=== PATIENT | female | born 1965 | race Caucasian/White ===

== ENCOUNTER → 2020-02-08 10:36 | Outpatient (BNVA) | payer OTHER, SELFPAY | PROVIDERS: PCP Internal Medicine; Referring Provider Internal Medicine; Visit Provider Orthopaedic Surgery | DX: M75.01 Adhesive capsulitis of right shoulder (principal) | CPT/HCPCS: 20610; 99203; J1100 ==

== ENCOUNTER 2020-04-21 10:11 | Outpatient (REF) | payer OTHER, SELFPAY ==
[2020-04-21 11:38] LABS: Estimated Average Glucose 120 mg/dL; Hemoglobin A1c % 5.8 %
[2020-04-21 11:53] LABS: Microalbum/Creatinine Ratio Ur 6.2 ug/mg cr
[2020-04-21 11:54] LABS: Alanine Aminotransferase 22 U/L (0-31); Albumin Level 4.4 g/dL (3.5-5.0); Alkaline Phosphatase 63 U/L (39-117); Anion Gap 13 (12-20); Aspartate Amino Transferase 16 U/L (5-31); Bilirubin Direct 0.2 mg/dL (0.0-0.5); Bilirubin Total 0.3 mg/dL (0.0-1.0); Blood Urea Nitrogen 12 mg/dL (9-16); Calcium 9.4 mg/dL (8.4-10.2); Carbon Dioxide 22 mmol/L (22-29); Chloride 108 mmol/L (96-108); Cholesterol 142 mg/dL; Estimated Glomerular Filt Rate > 60; Glucose Fasting 107 mg/dL (60-99); HDL Cholesterol 58 mg/dL; LDL Cholesterol Calculated 54 mg/dl; Sodium 139 mmol/L (135-145); Total Protein 6.3 g/dL (6.5-8.0); Triglycerides 153 mg/dL
== END 2020-04-21 10:12 | disposition home or self-care (01) ==
LOC: HO.HMGCLDS 10:11
PROVIDERS: PCP Internal Medicine; Visit Provider Internal Medicine
DX: R79.89 Other specified abnormal findings of blood chemistry (principal); E11.9 Type 2 diabetes mellitus without complications; M25.511 Pain in right shoulder
CPT/HCPCS: 36415; 80053; 80061; 80076; 82043; 82248; 83036

== ENCOUNTER 2020-11-15 12:38 | Outpatient (REF) | payer OTHER, SELFPAY ==
[2020-11-15 13:52] LABS: Glucose Urine UA NEG (NEG); Leukocyte Esterase Urine TRACE (NEG); Nitrite Urine NEG (NEG); UACC Culture Trigger YES; Urine Blood NEG (NEG); Urine Ketones NEG (NEG); Urine Protein NEG (NEG-TRACE)
[2020-11-15 13:53] LABS: Appearance Urine CLEAR; Color Urine YELLOW
[2020-11-15 14:11] LABS: RBC Urine 0 /HPF (0); Squamous Epithelial Cell Urine TRACE /LPF
== END 2020-11-15 12:39 | disposition home or self-care (01) ==
LOC: HO.HMGCLDS 12:38
PROVIDERS: PCP Internal Medicine; Visit Provider Internal Medicine
DX: R30.0 Dysuria (principal)
CPT/HCPCS: 81001; 87086

== ENCOUNTER 2020-11-24 11:46 | Outpatient (REF) | payer OTHER, SELFPAY ==
[2020-11-24 14:11] LABS: Glucose Urine UA NEG (NEG); Leukocyte Esterase Urine NEG (NEG); Nitrite Urine NEG (NEG); Urine Blood NEG (NEG); Urine Ketones NEG (NEG); Urine Protein NEG (NEG-TRACE)
[2020-11-24 14:15] LABS: Appearance Urine CLEAR; Color Urine YELLOW
[2020-11-24 14:46] LABS: Microalbum/Creatinine Ratio Ur 4.9 ug/mg cr
== END 2020-11-24 11:47 | disposition home or self-care (01) ==
LOC: HO.HMGCLDS 11:46
PROVIDERS: PCP Internal Medicine; Visit Provider Internal Medicine
DX: E11.9 Type 2 diabetes mellitus without complications (principal); I10 Essential (primary) hypertension; E78.5 Hyperlipidemia, unspecified; R93.3 Abnormal findings on diagnostic imaging of other parts of digestive tract; R30.0 Dysuria
CPT/HCPCS: 81003; 82043

== ENCOUNTER 2020-11-28 08:49 | Outpatient (REF) | payer OTHER, SELFPAY ==
[2020-11-28 11:31] LABS: MANUAL DIFF FLAG NO
[2020-11-28 11:37] LABS: Basophils Absolute Auto 0.1 X10*3/uL (0.0-0.2); Basophils Percent Auto 0.8 % (0-2); Eosinophils Absolute Auto 0.2 X10*3/uL (0.0-0.4); Eosinophils Percent Auto 2.7 % (0-4); Hematocrit 40.6 % (37-47); Hemoglobin 13.3 g/dl (12.0-16.0); Imm Gran Abs Auto 0.01 X10*3/uL (0.00-0.03); Imm Gran Pct Auto 0.2 % (0.0-0.4); Lymphocytes Absolute Auto 1.6 X10*3/uL (1.2-4.9); Mean Corpuscular HGB Conc 32.8 g/dl (31.0-35.0); Mean Corpuscular Hemoglobin 30.5 pg (27.0-33.0); Mean Corpuscular Volume 93.1 fL (80-98); Mean Platelet Volume 10.1 fL (9.4-12.3); Monocytes Absolute Auto 0.5 X10*3/uL (0.1-1.2); Monocytes Percent Auto 7.9 % (2-11); Neutrophils Absolute Auto 4.2 X10*3/uL (2.0-8.3); Neutrophils Percent Auto 64.4 % (45-73); Platelet Count 294 X10*3/uL (160-400); Red Blood Count 4.36 X10*6/uL (4.20-5.50); Red Cell Distribution Width 12.5 % (11.0-16.0); White Blood Count 6.6 X10*3/uL (4.8-10.8)
[2020-11-28 11:54] LABS: Alanine Aminotransferase 21 U/L (0-31); Albumin Level 4.6 g/dL (3.5-5.0); Alkaline Phosphatase 65 U/L (39-117); Anion Gap 15 (12-20); Aspartate Amino Transferase 17 U/L (5-31); Bilirubin Total 0.6 mg/dL (0.0-1.0); Blood Urea Nitrogen 10 mg/dL (9-16); Calcium 9.5 mg/dL (8.4-10.2); Carbon Dioxide 20 mmol/L (22-29); Chloride 112 mmol/L (96-108); Cholesterol 137 mg/dL; Estimated Glomerular Filt Rate > 60; Glucose Fasting 133 mg/dL (60-99); HDL Cholesterol 53 mg/dL; LDL Cholesterol Calculated 58 mg/dl; Potassium 4.1 mmol/L (3.3-5.1); Sodium 143 mmol/L (135-145); Total Protein 6.5 g/dL (6.5-8.0); Triglycerides 133 mg/dL
[2020-11-28 11:55] LABS: Estimated Average Glucose 128 mg/dL; Hemoglobin A1c % 6.1 %
== END 2020-11-28 08:50 | disposition home or self-care (01) ==
LOC: HO.HMGCLDS 08:49
PROVIDERS: PCP Internal Medicine; Visit Provider Internal Medicine
DX: E11.9 Type 2 diabetes mellitus without complications (principal); I10 Essential (primary) hypertension; E78.5 Hyperlipidemia, unspecified; R93.3 Abnormal findings on diagnostic imaging of other parts of digestive tract
CPT/HCPCS: 36415; 80053; 80061; 83036; 85025

== ENCOUNTER 2021-02-02 15:28 | Outpatient (REF) | payer OTHER, SELFPAY ==
--- NOTE | ~2021-02-02 | MM_ITS ---
EXAMINATION: MM SCREENING DIGITAL BREAST TOMOSYNTHESIS, BILATERAL CLINICAL INFORMATION: Screening. Asymptomatic. Prior zag-nm-venph mammography currently unavailable. Remote history reduction mammoplasty 1992. No known family history breast cancer. The lifetime risk of breast cancer based on the Tyrer-Cuzick Model is 12%. COMPARISON: None. TECHNIQUE: Digital breast tomosynthesis is performed in both the craniocaudal and mediolateral oblique views along with computer-aided detection (CAD). Synthesized 2D images are generated from the tomosynthesis. FINDINGS: There are scattered areas of fibroglandular density (ACR BI-RADS breast composition Category b). Breast tissue composition borders on predominantly fatty. There is no mass or architectural abnormality or abnormal calcifications. The axilla and skin contours are unremarkable. MM/MM tomosynthesis screening BI IMPRESSION: No mammographic evidence of malignancy. ASSESSMENT: BI-RADS 1: Negative RECOMMENDATION: Routine annual mammography screening. This patient's information was entered into a reminder system with a target due date for their next mammogram.
== END 2021-02-02 15:29 | disposition home or self-care (01) ==
LOC: HO.MAMMO 15:28
PROVIDERS: Visit Provider Internal Medicine
DX: Z12.31 Encounter for screening mammogram for malignant neoplasm of breast (principal)
CPT/HCPCS: 77063; 77067

== ENCOUNTER 2021-08-28 09:18 | Outpatient (REF) | payer OTHER, SELFPAY ==
[2021-08-28 11:39] LABS: Hematocrit 40.1 % (37.0-47.0); Mean Corpuscular HGB Conc 32.4 g/dl (31.0-35.0); Mean Corpuscular Hemoglobin 30.6 pg (27.0-33.0); Mean Corpuscular Volume 94.4 fL (80.0-98.0); Mean Platelet Volume 9.7 fL (9.4-12.3); Platelet Count 265 X10*3/uL (160-400); Red Blood Count 4.25 X10*6/uL (4.20-5.50); Red Cell Distribution Width 12.8 % (11.0-16.0); White Blood Count 6.7 X10*3/uL (4.8-10.8)
[2021-08-28 11:50] LABS: Estimated Average Glucose 117 mg/dL; Hemoglobin A1c % 5.7 %
[2021-08-28 12:02] LABS: Alanine Aminotransferase 29 U/L (0-31); Albumin Level 4.3 g/dL (3.5-5.0); Alkaline Phosphatase 50 U/L (39-117); Anion Gap 11 (12-20); Aspartate Amino Transferase 23 U/L (5-31); Bilirubin Total 0.4 mg/dL (0.0-1.0); Blood Urea Nitrogen 11 mg/dL (9-16); Calcium 9.6 mg/dL (8.4-10.2); Carbon Dioxide 23 mmol/L (22-29); Chloride 110 mmol/L (96-108); Cholesterol 130 mg/dL; Estimated Glomerular Filt Rate > 60; Glucose Fasting 124 mg/dL (60-99); HDL Cholesterol 50 mg/dL; LDL Cholesterol Calculated 45 mg/dl; Potassium 3.9 mmol/L (3.3-5.1); Sodium 140 mmol/L (135-145); Total Protein 6.2 g/dL (6.5-8.0); Triglycerides 178 mg/dL
[2021-08-28 12:07] LABS: Creatinine Urine 179.28 mg/dL; Microalbum/Creatinine Ratio Ur 7.8 ug/mg cr
== END 2021-08-28 09:19 | disposition home or self-care (01) ==
LOC: HO.HMGCLDS 09:18
PROVIDERS: Visit Provider Internal Medicine
DX: E11.9 Type 2 diabetes mellitus without complications (principal); E78.5 Hyperlipidemia, unspecified; I10 Essential (primary) hypertension
CPT/HCPCS: 36415; 80053; 80061; 82043; 83036; 84443; 85027

== ENCOUNTER 2021-11-07 15:30 | Outpatient (REF) | payer OTHER, SELFPAY ==
[2021-11-07 16:48] LABS: C Reactive Protein 0.04 mg/dL (< or = 0.50)
[2021-11-07 17:29] LABS: Vitamin B12 214 pg/mL (200-900)
[2021-11-13 13:53] LABS: Vitamin D 25-OH, D2 <4 ng/mL; Vitamin D 25-OH, D3 51 ng/mL; Vitamin D 25-OH, Total 51 ng/mL (30-100)
== END 2021-11-07 15:31 | disposition home or self-care (01) ==
LOC: HO.LAB 15:30
PROVIDERS: PCP Internal Medicine; Visit Provider Nurse Practitioner Family
DX: R19.7 Diarrhea, unspecified (principal); K58.9 Irritable bowel syndrome, unspecified; K58.2 Mixed irritable bowel syndrome; K59.04 Chronic idiopathic constipation; K21.9 Gastro-esophageal reflux disease without esophagitis; E55.9 Vitamin D deficiency, unspecified
CPT/HCPCS: 36415; 82306; 82607; 82746; 86140; 99202

== ENCOUNTER 2021-11-09 | Outpatient (REF) | payer OTHER, SELFPAY ==
[2021-11-16 16:33] LABS: Fecal Fat Qualitative Normal (Normal)
[2021-11-17 19:01] LABS: Pancreatic Elastase-1 389 mcg/g
== END 2021-11-09 00:01 | disposition home or self-care (01) ==
LOC: HO.LNP
PROVIDERS: Visit Provider Nurse Practitioner Family
DX: R19.7 Diarrhea, unspecified (principal); R10.9 Unspecified abdominal pain
CPT/HCPCS: 82656; 82705

== ENCOUNTER 2021-12-19 15:57 | Outpatient (REF) | payer OTHER, SELFPAY ==
[2021-12-21 14:56] LABS: HPV mRNA E6/E7 rflx Not Detected (Not Detected)
== END 2021-12-19 15:58 | disposition home or self-care (01) ==
LOC: HO.LNP 15:57
PROVIDERS: Visit Provider Obstetrics & Gynecology
DX: Z01.419 Encounter for gynecological examination (general) (routine) without abnormal findings (principal)
CPT/HCPCS: 87624; 88142

== ENCOUNTER 2021-12-20 13:54 | Day surgery (SDC) | payer OTHER, SELFPAY ==
[2021-12-14 15:11] VITALS: BMI 29.1
--- NOTE | 2021-12-20 13:59 | HO.ANESPROP2 ---
[facility] Active Problems Active Problems: All Active Problems (Updated 12/19/21 @ 09:57 by Jeffery Mazariegos MD) Well woman exam (Acute) Annual physical exam (Acute) Anxiety and depression (Acute) Microalbuminuria (Acute) Abnormal colonoscopy (Acute) Hyperlipemia (Acute) DM type 2 (diabetes mellitus, type 2) (Acute) Dysuria (Acute) Adhesive capsulitis of shoulder (Acute) Past Medical History Medical History Abnormal colonoscopy Adhesive capsulitis of shoulder Annual physical exam Anxiety and depression DM type 2 (diabetes mellitus, type 2) Dysuria History of trigger finger Hyperlipemia Microalbuminuria Migraine headache Family History Family History Father No problems noted. Mother No problems noted. Other Mental health disorder Family history of problems with anesthesia: No Surgical History Surgical History H/O parathyroidectomy History of 2 sections History of ankle surgery History of sinus surgery Hx of colonoscopy S/P tonsillectomy History of Problems with Anesthesia: No Social History Social History Housing: House Are you a primary home care music therapist to a significant other at home: No Do you presently have visiting nurse or other home services: No Alcohol intake: current Alcohol intake frequency: a few times a month Patient Tobacco Use Status: Never used Tobacco e-Cigarette/Vaping Use: Never Used Use of substances other than those prescribed or required for medical reasons: No Are you DNR?: No Advance Directives: No Advance Directives Information Provided: Yes Advance Directives on File: No Recently lost weight without trying: No Eating poorly because of decreased appetite: No Nutrition Risks: No Nutritional Risk Patient : No Current occupational status: retired Current occupation: retired-right handed Cognitive needs: No Hearing needs: No Vision needs: Yes Meds Allergies Allergy/AdvReac Type Severity Reaction Status Date / Time acetaminophen [Percocet] Allergy Unknown Rash Verified 12/19/21 09:48 iodine Allergy Unknown Wheezing, Verified 12/19/21 09:48 rash oxycodone [Percocet] Allergy Unknown Wheezing, Verified 12/19/21 09:48 rash azithromycin Allergy rash Verified 12/19/21 09:48 Percodan Allergy Unknown wheezing Uncoded 12/14/21 14:41 and rash Active Medications: Current Medications Lactated Ringer's (Lr) 1,000 mls @ 100 mls/hr IVCONT .Q10H RAE Home Medications Medication Instructions Recorded Confirmed Last Taken Type aspirin 81 mg tablet,delayed 81 mg PO DAILY 02/08/20 12/14/21 Unknown History release loratadine 10 mg capsule 10 mg PO DAILY 02/08/20 12/14/21 Unknown History bupropion HCl 150 mg 24 hr tablet, 150 mg PO QAM 11/24/20 12/14/21 Unknown History extended release onabotulinumtoxinA 200 unit intradermal .every 12 weeks 11/24/20 08/31/21 Unknown History solution for injection (Botox) rimegepant 75 mg disintegrating 75 mg PO DAILY PRN migraine 11/24/20 12/14/21 Unknown History tablet (Nurtec ODT) bupropion HCl 300 mg 24 hr tablet, 1 tab PO DAILY 12/14/21 12/14/21 Unknown History extended release gabapentin 300 mg capsule 300 mg PO BEDTIME 12/14/21 12/14/21 Unknown History lisinopril 10 mg tablet 10 mg PO BEDTIME 12/14/21 12/14/21 Unknown History rosuvastatin 20 mg tablet 20 mg PO BEDTIME 12/14/21 12/14/21 Unknown History topiramate 200 mg tablet 200 mg PO BEDTIME 12/14/21 12/14/21 Unknown History topiramate 50 mg tablet (Topamax) 50 mg PO DAILY 12/14/21 12/14/21 Unknown History Exam Exam Date and Time: December 20, 2021 1359 Height,Weight and Vital Signs: Height 5 ft 7 in Weight 84.368 kg Airway Mallampati Class: II TM Dist: >3cm Neck ROM: Full Loose/Missing/Broken Teeth: No (Implant upper central incisor) Heart: RRR Lungs: CTA Assessment and Plan Assessment Anesthesia Assessment: Anesthesia Plan Discussed and Chart Reviewed Final Anesthetic Review Family History of Problems with Anesthesia: No History of Problems with Anesthesia: No NPO: Yes ASA Class: II Final Preanesthetic Review: Consent Obtained/Reviewed and Anes Risks/Benef Reviewed Patient Risk: Low Procedure Risk: Intermediate Anesthetic Plan Anesthetic Plan: MAC: Disposition: Standard PACU
[2021-12-20 14:07] VITALS: BP 160/79; PULSE 70; RESP 16; TEMP 36.6; O2SAT 98; BMI 27.8
--- NOTE | 2021-12-20 14:21 | MHC.SHP ---
Pre-Procedural Eval Section A Date of Service: 12/20/21 Section B Chief Complaint: reflux disease,screening Details of Present Illness: FH of cRC Relevant Family History (Specify if Yes): Yes Relevant Social History: None Present Medications: see Short Stay Collaborative assessment Medical History: Significant History (Abnormal colonoscopy Adhesive capsulitis of shoulder Annual physical exam Anxiety and depression DM type 2 (diabetes mellitus, type 2) Dysuria History of trigger finger Hyperlipemia Microalbuminuria Migraine headache) History of Previous Operations: Relevant previous surgery/procedure and date(s) (H/O parathyroidectomy History of 2 sections History of ankle surgery History of sinus surgery Hx of colonoscopy S/P tonsillectomy) Allergies: Allergies Allergy/AdvReac Type Severity Reaction Status Date / Time acetaminophen [Percocet] Allergy Unknown Rash Verified 12/19/21 09:48 iodine Allergy Unknown Wheezing, Verified 12/19/21 09:48 rash oxycodone [Percocet] Allergy Unknown Wheezing, Verified 12/19/21 09:48 rash azithromycin Allergy rash Verified 12/19/21 09:48 Percodan Allergy Unknown wheezing Uncoded 12/14/21 14:41 and rash Review of Systems Sugical H&P ROS: Negative: Constitution, Cardiovascular, Respiratory, Neurological, Psychiatric, Hem-Onc, Allergic/Immunologic, Gastrointestinal, Genitourinary, Musculoskeletal, Integumentary, Endocrine and Eyes/Ears/Nose/Throat Exam Surgical H&P Exam: Normal: HEENT, Normal: Heart, Normal: Lungs, Normal: Extremities, Normal: Abdomen, Normal: Skin and Normal: Neurological Plan Diagnosis/Plan: Unchanged I have reviewed the history and physical and performed a pertinent physical examination on my patient. No changes have occurred unless specified.
[2021-12-20] MEDS: Lactated Ringers 1,000 ML 100 ML IVCONT (14:28)
[2021-12-20 14:32] LABS: Glucose, Whole Blood 132 mg/dL (60-115)
--- NOTE | 2021-12-20 15:25 | W.PM.OPN ---
Operative Note Operative Note Date of Service: 12/20/21 Narrative: Operative Information Procedure Description: EGD, Colonoscopy Indication: hx of colon polyps, GERD Anesthesia: MAC FLEXIBLE TRANSORAL UPPER GASTROINTESTINAL ENDOSCOPY AND COLONOSCOPY PROCEDURE NOTE UPPER ENDOSCOPY Consent: Indications for the procedure and potential complications of bleeding, perforation, reaction to medications and missed diagnosis were discussed with the patient and informed consent was obtained. Instrument: Olympus GIF H 190 J mid size upper endoscope Monitoring: Vital signs and clinical assessment, continuous EKG monitoring, Pulse oximetry, Carbon Dioxide monitoring and blood pressure monitoring were done throughout the procedure. Procedure: The patient was placed in the left lateral decubitis position and pre-procedure medications were administered and a bite block was placed. The endoscope was inserted into the mouth and advanced under direct vision to the third part of duodenum. A careful inspection was made as the upper endoscope was withdrawn including a retroflexed examination of the proximal stomach; Findings and interventions are described below. Findings: Larynx:normal Esophagus: GE junction at 37 cm, diaphragm hiatus at 37 cm, streaky erythema and bogginess at GEJ, bx taken from GEJ, distal esophagus and proximal esophagus in separate jars, ringing of mucosa also noted. Stomach: Patchy erythematous mucosa. Biopsies were obtained. Grade 2 flap valve on retroflexed examination of the cardia. Duodenum: Patchy erythema thru out bulb and descending duodenum, bx taken Intervention: Biopsies as noted above COLONOSCOPY Instrument: Olympus variable stiffness pediatric scope 190L Colonoscopy Monitoring: Vital signs and clinical assessment, continuous EKG monitoring, Pulse oximetry, Carbon Dioxide monitoring and blood pressure monitoring were done throughout the procedure. Colon withdrawal time was 10 minutes. Procedure: The patient was placed in the left lateral decubitis position and pre-procedure medications were administered. After a digital rectal examination of the ano-rectum, the video colonoscope was inserted into the rectum and advanced through the colon to the cecum/TI. The colonoscope was slowly withdrawn in a retrograde panoramic fashion and the colon mucosa was carefully examined including a retroflexed view of the rectum. Findings and interventions are described below. Procedure Difficulty: easy Findings: Terminal Ileum-normal Cecum:normal Ascending Colon: normal Transverse Colon -normal Descending Colon:normal Sigmoid Colon: 10-12 mm sessile polyp removed with cold snare Rectum: Retroflexion with small internal hemorrhoids, grade I, patchy erythema in rectum bx taken Anorectum - normal Colon preparation: [place] Bowel Preparation Scale Right colon; 2 Transverse colon: 2 Left colon; 2 (0 = Unprepared colon segment with mucosa not seen due to solid stool that cannot be cleared. 1 = Portion of mucosa of the colon segment seen, but other areas of the colon segment not well seen due to staining, residual stool and/or opaque liquid. 2 = Minor amount of residual staining, small fragments of stool and/or opaque liquid, but mucosa of colon segment seen well. 3 = Entire mucosa of colon segment seen well with no residual staining, small fragments of stool or opaque liquid) Impression and Post Procedure Diagnosis: Endoscopy Findings: gastritis duodenitis esophagitis Colonoscopy Findings: polyp internal hemorrhoids Plan: Await Pathology results Repeat Colonoscopy in 3-5 years due to hx of polyps or earlier if clinically indicated High fiber diet leaflet avoid straining at stool, epsom salts and sitz bath, anusol supps or cream consider PPI trial for at least 3 months Above findings were reviewed with the patient and relevant handouts were provided if indicated.
[2021-12-20 15:31] VITALS: BP 108/67; PULSE 61; RESP 16; TEMP 36.2; O2SAT 98
[2021-12-20 15:46] VITALS: BP 131/74; PULSE 67; RESP 16; O2SAT 97
[2021-12-20 16:01] VITALS: BP 138/75; PULSE 60; RESP 18; TEMP 36.2; O2SAT 98
== END 2021-12-20 16:30 | disposition home or self-care (01) ==
PROVIDERS: PCP Internal Medicine; Visit Provider Internal Medicine Gastroenterology
PROC: (CPT 45385; principal; 2021-12-20 15:00)
DX: Z12.11 Encounter for screening for malignant neoplasm of colon (principal); Z86.010 Personal history of colon polyps; K63.5 Polyp of colon; K64.0 First degree hemorrhoids; K58.2 Mixed irritable bowel syndrome; K59.04 Chronic idiopathic constipation; K21.9 Gastro-esophageal reflux disease without esophagitis; K29.50 Unspecified chronic gastritis without bleeding; K29.80 Duodenitis without bleeding; K20.80 Other esophagitis without bleeding; K44.9 Diaphragmatic hernia without obstruction or gangrene; E78.5 Hyperlipidemia, unspecified; E11.9 Type 2 diabetes mellitus without complications; E55.9 Vitamin D deficiency, unspecified; R80.9 Proteinuria, unspecified; F41.8 Other specified anxiety disorders; Z79.84 Long term (current) use of oral hypoglycemic drugs; Z79.82 Long term (current) use of aspirin; Z79.899 Other long term (current) drug therapy; Z88.1 Allergy status to other antibiotic agents; Z88.8 Allergy status to other drugs, medicaments and biological substances; Z91.041 Radiographic dye allergy status
CPT/HCPCS: 45385; 45380; 43239; 82947; 88305; 88342; J2250

== ENCOUNTER 2022-01-10 14:33 | Outpatient (REF) | payer OTHER, SELFPAY ==
[2022-01-12 20:17] LABS: Transglutaminase Ab IgG <1.0 U/mL; Transglutaminase IgA 1.6 U/mL
== END 2022-01-10 14:34 | disposition home or self-care (01) ==
LOC: HO.LAB 14:33
PROVIDERS: PCP Internal Medicine; Visit Provider Nurse Practitioner Family
DX: R10.32 Left lower quadrant pain (principal); K59.00 Constipation, unspecified; K21.9 Gastro-esophageal reflux disease without esophagitis; Z98.890 Other specified postprocedural states
CPT/HCPCS: 36415; 86364; 99212

== ENCOUNTER 2022-02-05 08:32 | Outpatient (REF) | payer OTHER, SELFPAY ==
--- NOTE | ~2022-02-05 | CT_ITS ---
EXAMINATION: CT ABDOMEN AND PELVIS WITHOUT CONTRAST CLINICAL INFORMATION: Abdominal pain COMPARISON: None TECHNIQUE: Multidetector volumetric imaging was performed from the superior aspect of the liver through the pubic symphysis. Sagittal and coronal reformatted images were obtained on the technologist's workstation. This CT examination was performed using dose optimization techniques as appropriate, variously including the following: *Automated exposure control *Adjustment of mA and/or kV according to patient size (this includes techniques or standardized protocols for targeted exams where dose is matched to indication/reason for exam; i.e. extremities or head) *Use of iterative reconstruction technique DLP: 524 mGy-cm FINDINGS: LUNG BASES: The visualized lung bases are unremarkable. LIVER, GALLBLADDER, AND BILIARY TREE: The liver is normal in size, shape, and attenuation. No focal hepatic lesion or biliary ductal dilatation is present. The gallbladder is unremarkable with no evidence of radiopaque gallstones, gallbladder wall thickening, or obvious pericholecystic inflammatory changes. PANCREAS: Unremarkable. SPLEEN: Unremarkable. ADRENAL GLANDS: Unremarkable. KIDNEYS AND URETERS: The kidneys are normal in size, shape, and attenuation. No hydronephrosis, hydroureter, or calculi seen. No perinephric stranding. BLADDER: Unremarkable. GASTROINTESTINAL TRACT: Stool throughout the colon suggestive of constipation. Evidence of previous surgery to the sigmoid colon with surgical staple line. The small and large bowel are otherwise unremarkable. The appendix is unremarkable. ABDOMINAL WALL: No significant hernia is appreciated. Surgical changes to the lower abdominal wall. LYMPH NODES: Normal. VASCULAR: Unremarkable. PELVIC VISCERA: Unremarkable. OSSEOUS STRUCTURES: Unremarkable. CT/CT abdomen pelvis wo IV con IMPRESSION: Large amount of stool: Suggestive of constipation. Otherwise unremarkable exam. Fleischner guidelines were followed.
[2022-02-05] MEDS: Barium Sulfate Oral (Berry) 450 ML ORAL.SUSP 900 ML PO (10:46)
== END 2022-02-05 08:33 | disposition home or self-care (01) ==
LOC: HO.CT 08:32
PROVIDERS: PCP Internal Medicine; Visit Provider Nurse Practitioner Family
DX: R10.9 Unspecified abdominal pain (principal)
CPT/HCPCS: 74176

== ENCOUNTER 2022-02-08 14:55 | Outpatient (REF) | payer OTHER, SELFPAY ==
--- NOTE | ~2022-02-08 | MM_ITS ---
EXAMINATION: MM SCREENING DIGITAL BREAST TOMOSYNTHESIS, BILATERAL CLINICAL INFORMATION: Screening. Asymptomatic. The lifetime risk of breast cancer based on the Tyrer-Cuzick Model is 12.4%. COMPARISON: Mammography: February 02, 2021 and studies dating back to November 07, 2015 TECHNIQUE: Digital breast tomosynthesis is performed in both the craniocaudal and mediolateral oblique views along with computer-aided detection (CAD). Synthesized 2D images are generated from the tomosynthesis. FINDINGS: The breasts are almost entirely fatty (ACR BI-RADS breast composition Category a). There are no significant masses, abnormal calcifications, or other abnormalities. MM/MM tomosynthesis screening BI IMPRESSION: No significant changes from prior exam. ASSESSMENT: BI-RADS 1: Negative RECOMMENDATION: Routine annual mammography screening. This patient's information was entered into a reminder system with a target due date for their next mammogram.
== END 2022-02-08 14:56 | disposition home or self-care (01) ==
LOC: HO.MAMMO 14:55
PROVIDERS: PCP Internal Medicine; Visit Provider Internal Medicine
DX: Z12.31 Encounter for screening mammogram for malignant neoplasm of breast (principal)
CPT/HCPCS: 77063; 77067

== ENCOUNTER 2022-02-27 10:39 | Outpatient (REF) | payer OTHER, SELFPAY ==
[2022-02-27 14:18] LABS: Hematocrit 43.3 % (37.0-47.0); Hemoglobin 14.1 g/dl (12.0-16.0); Mean Corpuscular HGB Conc 32.6 g/dl (31.0-35.0); Mean Corpuscular Hemoglobin 30.5 pg (27.0-33.0); Mean Corpuscular Volume 93.7 fL (80.0-98.0); Mean Platelet Volume 10.1 fL (9.4-12.3); Platelet Count 277 X10*3/uL (160-400); Red Blood Count 4.62 X10*6/uL (4.20-5.50); Red Cell Distribution Width 12.9 % (11.0-16.0)
[2022-02-27 14:24] LABS: Estimated Average Glucose 123 mg/dL; Hemoglobin A1C 151.8537 umol/L; Hemoglobin A1c % 5.9 %
[2022-02-27 14:46] LABS: Alanine Aminotransferase 28 U/L (0-31); Albumin Level 4.5 g/dL (3.5-5.0); Alkaline Phosphatase 61 U/L (39-117); Anion Gap 13 (12-20); Aspartate Amino Transferase 21 U/L (5-31); Bilirubin Total 0.4 mg/dL (0.0-1.0); Blood Urea Nitrogen 15 mg/dL (9-16); Calcium 9.8 mg/dL (8.4-10.2); Carbon Dioxide 24 mmol/L (22-29); Chloride 110 mmol/L (96-108); Cholesterol 179 mg/dL; Estimated Glomerular Filt Rate > 60; Glucose Fasting 110 mg/dL (60-99); HDL Cholesterol 59 mg/dL; LDL Cholesterol Calculated 78 mg/dl; Potassium 4.4 mmol/L (3.3-5.1); Sodium 143 mmol/L (135-145); TSH reflex Free T4 2.68 uIU/mL (0.32-4.0); Total Protein 6.6 g/dL (6.5-8.0); Triglycerides 213 mg/dL
[2022-02-27 14:57] LABS: Creatinine Urine 237.17 mg/dL; Microalbum/Creatinine Ratio Ur 12.6 ug/mg cr
== END 2022-02-27 10:40 | disposition home or self-care (01) ==
LOC: HO.HMGCLDS 10:39
PROVIDERS: PCP Internal Medicine; Visit Provider Internal Medicine
DX: Z00.00 Encounter for general adult medical examination without abnormal findings (principal); R80.9 Proteinuria, unspecified; E11.9 Type 2 diabetes mellitus without complications; E78.5 Hyperlipidemia, unspecified
CPT/HCPCS: 36415; 80053; 80061; 82043; 83036; 84443; 85027

== ENCOUNTER 2022-04-03 10:31 | Outpatient (REF) | payer OTHER, SELFPAY ==
--- NOTE | ~2022-04-03 | MM_ITS ---
EXAMINATION: BONE DENSITOMETRY CLINICAL INDICATION: Menopause. COMPARISON: None (current study represents initial baseline exam). TECHNIQUE: Using a [employer] DXA System (software version: 13.1) manufactured by [employer], dual-energy x-ray absorptiometry was performed of the lumbar spine and left hip. The images are of good technical quality. Summary results are attached. FINDINGS: AP SPINE L1-L4: BMD 0.949 g/cm2, Z-score -1.4, T-score -1.9, osteopenia. LEFT FEMUR, NECK: BMD 0.889 g/cm2, Z-score -0.2, T-score -1.1, osteopenia. LEFT FEMUR, TOTAL: BMD 0.892 g/cm2, Z-score -0.5, T-score -0.9, normal. IDENTIFIED RISK FACTORS: Menopause, history of fracture (adult), low calcium intake, glucocorticoids (chronic). HISTORY OF FRACTURE: Wrist, ankle. MEDICATIONS: Calcium, vitamin D. MM/XR DEXA axial skeleton IMPRESSION: 1. DIAGNOSIS: Osteopenia based on the lowest T-score value of -1.9 in the lumbar spine applying World Health Organization criteria. 2. 10-YEAR FRACTURE RISK PREDICTION, FRAX: Major osteoporotic fracture (clinical spine, forearm, hip or shoulder) 18.7%. Hip fracture 1.3%. 3. Treatment Recommendations: NOF guidelines recommend consideration for treatment in postmenopausal women and men age 50 and older presenting with the following: -A hip or vertebral (clinical or morphometric) fracture. -T-score less than or equal to -2.5 at the femoral neck or spine after appropriate evaluation to exclude secondary causes. -Low bone mass at the hip or spine and a 10-year fracture probability by FRAX of greater than or equal to 3% for hip fracture or greater than or equal to 20% for major osteoporotic fracture based on the [place] adapted WHO algorithm. 4. Other Recommendations: All treatment decisions require clinical judgment and consideration of individual patient factors, including patient preferences, comorbidities, previous drug use, risk factors not captured in the FRAX model (e.g. frailty, falls, vitamin D deficiency, increased bone turnover, interval significant decline in bone density) and possible under or overestimation of fracture risk by FRAX. Additional medical evaluation for secondary cause of low bone mineral density may be appropriate. FUTURE SCAN RECOMMENDATION: People with diagnosed cases of osteoporosis or at high risk for fracture should have regular bone mineral density tests. For patients eligible for Medicare, routine testing is allowed once every 2 years. The testing frequency can be increased to one year for patients who have rapidly progressing disease, those who are receiving or discontinuing medical therapy to restore bone mass, or have additional risk factors.
== END 2022-04-03 10:32 | disposition home or self-care (01) ==
LOC: HO.MAMMO 10:31
PROVIDERS: PCP Internal Medicine; Visit Provider Internal Medicine
DX: Z13.820 Encounter for screening for osteoporosis (principal); Z78.0 Asymptomatic menopausal state
CPT/HCPCS: 77080

== ENCOUNTER → 2022-04-18 12:59 | Outpatient (BNVA) | payer OTHER, SELFPAY | PROVIDERS: PCP Internal Medicine; Visit Provider Nurse Practitioner Family | DX: K21.9 Gastro-esophageal reflux disease without esophagitis (principal); K59.00 Constipation, unspecified; K58.9 Irritable bowel syndrome, unspecified; Z79.899 Other long term (current) drug therapy | CPT/HCPCS: 99212 ==

== ENCOUNTER 2022-08-31 09:01 | Outpatient (REF) | payer OTHER, SELFPAY ==
[2022-08-31 11:49] LABS: MANUAL DIFF FLAG NO
[2022-08-31 11:56] LABS: Basophils Absolute Auto 0.1 X10*3/uL (0.0-0.2); Basophils Percent Auto 1.2 % (0-2); Eosinophils Absolute Auto 0.1 X10*3/uL (0.0-0.4); Eosinophils Percent Auto 2.5 % (0-4); Hematocrit 38.7 % (37.0-47.0); Hemoglobin 12.7 g/dl (12.0-16.0); Imm Gran Abs Auto 0.01 X10*3/uL (0.00-0.03); Imm Gran Pct Auto 0.2 % (0.0-0.4); Lymphocytes Absolute Auto 1.7 X10*3/uL (1.2-4.9); Lymphocytes Percent Auto 32.7 % (20-40); Mean Corpuscular HGB Conc 32.8 g/dl (31.0-35.0); Mean Corpuscular Volume 94.4 fL (80.0-98.0); Mean Platelet Volume 10.1 fL (9.4-12.3); Monocytes Absolute Auto 0.5 X10*3/uL (0.1-1.2); Monocytes Percent Auto 10.4 % (2-11); Neutrophils Absolute Auto 2.7 x10*3/uL (2.0-8.3); Platelet Count 259 X10*3/uL (160-400); White Blood Count 5.1 X10*3/uL (4.8-10.8)
[2022-08-31 12:17] LABS: Alanine Aminotransferase 31 U/L (0-31); Albumin Level 4.2 g/dL (3.5-5.0); Alkaline Phosphatase 47 U/L (39-117); Anion Gap 12 (12-20); Aspartate Amino Transferase 28 U/L (5-31); Bilirubin Total 0.5 mg/dL (0.0-1.0); Blood Urea Nitrogen 10 mg/dL (9-16); Calcium 9.3 mg/dL (8.4-10.2); Carbon Dioxide 22 mmol/L (22-29); Chloride 112 mmol/L (96-108); Estimated Glomerular Filt Rate > 60; Glucose Fasting 102 mg/dL (60-99); Potassium 4.2 mmol/L (3.3-5.1); Sodium 142 mmol/L (135-145); Total Protein 5.9 g/dL (6.5-8.0)
[2022-08-31 12:28] LABS: Estimated Average Glucose 117 mg/dL; Hemoglobin A1c % 5.7 %
[2022-08-31 12:37] LABS: Creatinine Urine 166.85 mg/dL; Microalbum/Creatinine Ratio Ur 10.1 ug/mg cr
== END 2022-08-31 09:02 | disposition home or self-care (01) ==
LOC: HO.HMGCLDS 09:01
PROVIDERS: PCP Internal Medicine; Visit Provider Internal Medicine
DX: E11.9 Type 2 diabetes mellitus without complications (principal); E78.5 Hyperlipidemia, unspecified; R80.9 Proteinuria, unspecified
CPT/HCPCS: 36415; 80053; 82043; 83036; 85025

== ENCOUNTER 2022-09-03 12:38 | Outpatient (REF) | payer OTHER, SELFPAY ==
[2022-09-03 14:58] LABS: Appearance Urine Clear; Color Urine Yellow; Glucose Urine UA Negative (Negative); Leukocyte Esterase Urine Negative (Negative); Nitrite Urine Negative (Negative); PH 5.5 (5.0-9.0); Specific Gravity - Urine 1.015 (1.005-1.025); Urine Blood Negative (Negative); Urine Ketones Negative (Negative); Urine Protein Negative (Neg-Trace)
== END 2022-09-03 12:39 | disposition home or self-care (01) ==
LOC: HO.HMGCLDS 12:38
PROVIDERS: PCP Internal Medicine; Visit Provider Internal Medicine
DX: M54.9 Dorsalgia, unspecified (principal)
CPT/HCPCS: 81003

== ENCOUNTER 2022-09-29 11:06 | Outpatient (REF) | payer OTHER, SELFPAY ==
[2022-09-29 13:36] LABS: Hematocrit 41.5 % (37.0-47.0); Hemoglobin 13.5 g/dl (12.0-16.0); Mean Corpuscular HGB Conc 32.5 g/dl (31.0-35.0); Mean Corpuscular Hemoglobin 30.7 pg (27.0-33.0); Mean Corpuscular Volume 94.3 fL (80.0-98.0); Mean Platelet Volume 10.7 fL (9.4-12.3); Platelet Count 258 X10*3/uL (160-400); Red Cell Distribution Width 12.6 % (11.0-16.0); White Blood Count 6.2 X10*3/uL (4.8-10.8)
[2022-09-29 13:58] LABS: Alanine Aminotransferase 18 U/L (0-31); Albumin Level 4.4 g/dL (3.5-5.0); Alkaline Phosphatase 50 U/L (39-117); Anion Gap 11 (12-20); Aspartate Amino Transferase 16 U/L (5-31); Bilirubin Direct 0.2 mg/dL (0.0-0.5); Bilirubin Total 0.7 mg/dL (0.0-1.0); Blood Urea Nitrogen 12 mg/dL (9-16); Calcium 10.2 mg/dL (8.4-10.2); Carbon Dioxide 24 mmol/L (22-29); Chloride 110 mmol/L (96-108); Estimated Glomerular Filt Rate > 60; Glucose Random 102 mg/dL (60-115); Sodium 141 mmol/L (135-145); Total Protein 6.5 g/dL (6.5-8.0)
== END 2022-09-29 11:07 | disposition home or self-care (01) ==
LOC: HO.HMGCLDS 11:06
PROVIDERS: PCP Internal Medicine; Visit Provider Internal Medicine
DX: K52.9 Noninfective gastroenteritis and colitis, unspecified (principal); E03.9 Hypothyroidism, unspecified
CPT/HCPCS: 36415; 80048; 80076; 84443; 85027

== ENCOUNTER → 2022-10-03 13:30 | Outpatient (BNV) | payer OTHER, SELFPAY | PROVIDERS: Visit Provider Psychiatry & Neurology Psychiatry | DX: F33.2 Major depressive disorder, recurrent severe without psychotic features (principal) | CPT/HCPCS: 90867 ==

== ENCOUNTER 2022-10-04 08:00 | Outpatient (RCR) | payer OTHER, SELFPAY ==
--- NOTE | 2022-10-03 22:26 | HO.TMSDAILY2 ---
TMS Daily Progress Note Daily TMS Progress Note Date of Service: 10/03/22 Week #: 1 Treatment #(05-14): 1 PHQ-9 Pre-Treatment (05-11): 17 PHQ-9 Most Recent (05-11): 17 Reviewed: TMS Mapping/Re-mapping completed Verification: I have reviewed the TMS Aircraft Painter Note and agree with the contents. The patient remains a candidate to continue TMS treatment per protocol. Assessment and Plan (1) Major depressive disorder, recurrent severe without psychotic features: Status: Acute Plan Patient with history of severe recurrent depression initial mapping completed Time Spent With Patient Time: Total time managing care of this patient today ____ minutes.
--- NOTE | 2022-11-05 17:24 | P.PNPS_ITS ---
TMS Daily Progress Note Daily TMS Progress Note Date of Service: 10/05/22 Week #: 1 Treatment #(05-14): 3 PHQ-9 Pre-Treatment (05-11): 17 PHQ-9 Most Recent (05-11): 17 Reviewed: TMS Tech Note Reviewed Verification: I have reviewed the TMS Regasification Plant Operator Note and agree with the contents. The patient remains a candidate to continue TMS treatment per protocol. Assessment and Plan (1) Major depressive disorder, recurrent severe without psychotic features: Status: Acute Plan Patient helpful regarding treatment Time Spent With Patient Time: Total time managing care of this patient today ____ minutes.
--- NOTE | 2022-11-05 17:24 | P.PNPS_ITS ---
TMS Daily Progress Note Daily TMS Progress Note Date of Service: 10/04/22 Week #: 1 Treatment #(05-14): 2 PHQ-9 Pre-Treatment (05-11): 17 PHQ-9 Most Recent (05-11): 17 Reviewed: TMS Tech Note Reviewed Verification: I have reviewed the TMS Survey Project Manager Note and agree with the contents. The patient remains a candidate to continue TMS treatment per protocol. Assessment and Plan (1) Major depressive disorder, recurrent severe without psychotic features: Status: Acute Plan pt tolerating tx Time Spent With Patient Time: Total time managing care of this patient today ____ minutes.
--- NOTE | 2022-11-05 17:24 | P.PNPS_ITS ---
TMS Daily Progress Note Daily TMS Progress Note Date of Service: 10/09/22 Week #: 1 Treatment #(05-14): 5 PHQ-9 Pre-Treatment (05-11): 17 PHQ-9 Most Recent (05-11): 17 Reviewed: TMS Tech Note Reviewed Verification: I have reviewed the TMS Senior Telecommunications Specialist Note and agree with the contents. The patient remains a candidate to continue TMS treatment per protocol. Assessment and Plan (1) Major depressive disorder, recurrent severe without psychotic features: Status: Acute Plan Worried regarding CT scan Time Spent With Patient Time: Total time managing care of this patient today ____ minutes.
--- NOTE | 2022-11-05 17:24 | P.PNPS_ITS ---
TMS Daily Progress Note Daily TMS Progress Note Date of Service: 10/08/22 Week #: 1 Treatment #(05-14): 4 PHQ-9 Pre-Treatment (05-11): 17 PHQ-9 Most Recent (05-11): 13 Reviewed: TMS Tech Note Reviewed Verification: I have reviewed the TMS Field Artillery Targeting Technician Note and agree with the contents. The patient remains a candidate to continue TMS treatment per protocol. Assessment and Plan (1) Major depressive disorder, recurrent severe without psychotic features: Status: Acute Plan Continue treatment plan Time Spent With Patient Time: Total time managing care of this patient today ____ minutes.
--- NOTE | 2022-11-05 17:25 | P.PNPS_ITS ---
TMS Daily Progress Note Daily TMS Progress Note Date of Service: 10/15/22 Week #: 2 Treatment #(05-14): 9 PHQ-9 Pre-Treatment (05-11): 17 PHQ-9 Most Recent (05-11): 9 Reviewed: TMS Tech Note Reviewed Verification: I have reviewed the TMS Cath Lab Radiology Technician Note and agree with the contents. The patient remains a candidate to continue TMS treatment per protocol. Assessment and Plan (1) Major depressive disorder, recurrent severe without psychotic features: Status: Acute Plan Getting more used to the treatment MT percentage 115 Time Spent With Patient Time: Total time managing care of this patient today ____ minutes.
--- NOTE | 2022-11-05 17:25 | P.PNPS_ITS ---
TMS Daily Progress Note Daily TMS Progress Note Date of Service: 10/11/22 Week #: 2 Treatment #(05-14): 7 PHQ-9 Pre-Treatment (05-11): 17 PHQ-9 Most Recent (05-11): 13 Reviewed: TMS Tech Note Reviewed Verification: I have reviewed the TMS Dewaterer Operator Note and agree with the contents. The patient remains a candidate to continue TMS treatment per protocol. Assessment and Plan (1) Major depressive disorder, recurrent severe without psychotic features: Status: Acute Plan continue plan of care Time Spent With Patient Time: Total time managing care of this patient today ____ minutes.
--- NOTE | 2022-11-05 17:25 | P.PNPS_ITS ---
TMS Daily Progress Note Daily TMS Progress Note Date of Service: 10/23/22 Week #: 3 Treatment #(05-14): 14 PHQ-9 Pre-Treatment (05-11): 17 PHQ-9 Most Recent (05-11): 9 Reviewed: TMS Tech Note Reviewed Verification: I have reviewed the TMS Silverware Supervisor Note and agree with the contents. The patient remains a candidate to continue TMS treatment per protocol. Assessment and Plan (1) Major depressive disorder, recurrent severe without psychotic features: Status: Acute Plan Patient continues tolerate treatment. Was taken off Wellbutrin by her psychiatrist Time Spent With Patient Time: Total time managing care of this patient today ____ minutes.
--- NOTE | 2022-11-05 17:25 | P.PNPS_ITS ---
TMS Daily Progress Note Daily TMS Progress Note Date of Service: 10/12/22 Week #: 2 Treatment #(05-14): 8 PHQ-9 Pre-Treatment (05-11): 17 PHQ-9 Most Recent (05-11): 13 Reviewed: TMS Tech Note Reviewed Verification: I have reviewed the TMS Yard Brakeman Note and agree with the contents. The patient remains a candidate to continue TMS treatment per protocol. Assessment and Plan (1) Major depressive disorder, recurrent severe without psychotic features: Status: Acute Plan Patient does have some some degree of chronic neck pain has been using ice prior to treatment did not today Time Spent With Patient Time: Total time managing care of this patient today ____ minutes.
--- NOTE | 2022-11-05 17:25 | P.PNPS_ITS ---
TMS Daily Progress Note Daily TMS Progress Note Date of Service: 10/19/22 Week #: 3 Treatment #(05-14): 12 PHQ-9 Pre-Treatment (05-11): 17 PHQ-9 Most Recent (05-11): 17 Reviewed: TMS Tech Note Reviewed Verification: I have reviewed the TMS Project/Production Manager Imaging Note and agree with the contents. The patient remains a candidate to continue TMS treatment per protocol. Assessment and Plan (1) Major depressive disorder, recurrent severe without psychotic features: Status: Acute Plan Patient continues tolerate treatment no major changes to this point Time Spent With Patient Time: Total time managing care of this patient today ____ minutes.
--- NOTE | 2022-11-05 17:25 | P.PNPS_ITS ---
TMS Daily Progress Note Daily TMS Progress Note Date of Service: 10/10/22 Week #: 2 Treatment #(05-14): 6 PHQ-9 Pre-Treatment (05-11): 17 PHQ-9 Most Recent (05-11): 17 Reviewed: TMS Tech Note Reviewed Verification: I have reviewed the TMS Director Of Collections Note and agree with the contents. The patient remains a candidate to continue TMS treatment per protocol. Assessment and Plan (1) Major depressive disorder, recurrent severe without psychotic features: Status: Acute Plan Patient tolerating treatment was recently told she may have a small umbilical hernia Time Spent With Patient Time: Total time managing care of this patient today ____ minutes.
--- NOTE | 2022-11-05 17:25 | HO.TMSDAILY2 ---
TMS Daily Progress Note Daily TMS Progress Note Date of Service: 10/24/22 Week #: 3 Treatment #(05-14): 15 PHQ-9 Pre-Treatment (05-11): 17 PHQ-9 Most Recent (05-11): 9 Reviewed: TMS Tech Note Reviewed Verification: I have reviewed the TMS Cook Pickled Meat Note and agree with the contents. The patient remains a candidate to continue TMS treatment per protocol. Assessment and Plan (1) Major depressive disorder, recurrent severe without psychotic features: Status: Acute Plan Continue plan of care some ongoing musculoskeletal complaints could consider repositioning Time Spent With Patient Time: Total time managing care of this patient today ____ minutes.
--- NOTE | 2022-11-05 17:26 | P.PNPS_ITS ---
TMS Daily Progress Note Daily TMS Progress Note Date of Service: 10/18/22 Week #: 3 Treatment #(05-14): 11 PHQ-9 Pre-Treatment (05-11): 17 PHQ-9 Most Recent (05-11): 17 Reviewed: TMS Tech Note Reviewed Verification: I have reviewed the TMS Aerospace Technician Note and agree with the contents. The patient remains a candidate to continue TMS treatment per protocol. Assessment and Plan (1) Major depressive disorder, recurrent severe without psychotic features: Status: Acute Plan cont plan of care Time Spent With Patient Time: Total time managing care of this patient today ____ minutes.
--- NOTE | 2022-11-05 17:26 | P.PNPS_ITS ---
TMS Daily Progress Note Daily TMS Progress Note Date of Service: 11/07/22 Week #: 5 Treatment #(05-14): 25 PHQ-9 Pre-Treatment (05-11): 17 PHQ-9 Most Recent (05-11): 2 Reviewed: TMS Tech Note Reviewed Verification: I have reviewed the TMS Country Printer Apprentice Note and agree with the contents. The patient remains a candidate to continue TMS treatment per protocol. Assessment and Plan (1) Major depressive disorder, recurrent severe without psychotic features: Status: Acute Plan pt continues to do well no c/o side effects Time Spent With Patient Time: Total time managing care of this patient today ____ minutes.
--- NOTE | 2022-11-05 17:26 | P.PNPS_ITS ---
TMS Daily Progress Note Daily TMS Progress Note Date of Service: 10/31/22 Week #: 4 Treatment #(05-14): 19 PHQ-9 Pre-Treatment (05-11): 17 PHQ-9 Most Recent (05-11): 17 Reviewed: TMS Tech Note Reviewed Verification: I have reviewed the TMS Hoof Trimmer Note and agree with the contents. The patient remains a candidate to continue TMS treatment per protocol. Assessment and Plan (1) Major depressive disorder, recurrent severe without psychotic features: Status: Acute Plan Continue plan of care Time Spent With Patient Time: Total time managing care of this patient today ____ minutes.
--- NOTE | 2022-11-05 17:26 | P.PNPS_ITS ---
TMS Daily Progress Note Daily TMS Progress Note Date of Service: 11/02/22 Week #: 5 Treatment #(05-14): 22 PHQ-9 Pre-Treatment (05-11): 17 PHQ-9 Most Recent (05-11): 5 Reviewed: TMS Tech Note Reviewed Verification: I have reviewed the TMS Data Systems Manager Note and agree with the contents. The patient remains a candidate to continue TMS treatment per protocol. Assessment and Plan (1) Major depressive disorder, recurrent severe without psychotic features: Status: Acute Plan pt quite improved Time Spent With Patient Time: Total time managing care of this patient today ____ minutes.
--- NOTE | 2022-11-05 17:26 | P.PNPS_ITS ---
TMS Daily Progress Note Daily TMS Progress Note Date of Service: 10/26/22 Week #: 4 Treatment #(05-14): 17 PHQ-9 Pre-Treatment (05-11): 9 PHQ-9 Most Recent (05-11): 17 Reviewed: TMS Tech Note Reviewed Verification: I have reviewed the TMS Technical Manager Chemical Plant Note and agree with the contents. The patient remains a candidate to continue TMS treatment per protocol. Assessment and Plan (1) Major depressive disorder, recurrent severe without psychotic features: Status: Acute Plan Some lightening has difficulty with some chronic health issues better difficult to put aside Time Spent With Patient Time: Total time managing care of this patient today ____ minutes.
--- NOTE | 2022-11-05 17:26 | HO.TMSDAILY2 ---
TMS Daily Progress Note Daily TMS Progress Note Date of Service: 10/25/22 Week #: 4 Treatment #(05-14): 16 PHQ-9 Pre-Treatment (05-11): 17 PHQ-9 Most Recent (05-11): 9 Reviewed: TMS Tech Note Reviewed Verification: I have reviewed the TMS Tomato Grader Note and agree with the contents. The patient remains a candidate to continue TMS treatment per protocol. Assessment and Plan (1) Major depressive disorder, recurrent severe without psychotic features: Status: Acute Plan Continue plan of care question improvement noted no significant TMS side effects Time Spent With Patient Time: Total time managing care of this patient today ____ minutes.
--- NOTE | 2022-11-05 17:26 | HO.TMSDAILY2 ---
TMS Daily Progress Note Daily TMS Progress Note Date of Service: 10/29/22 Week #: 4 Treatment #(05-14): 18 PHQ-9 Pre-Treatment (05-11): 17 PHQ-9 Most Recent (05-11): 5 Reviewed: TMS Tech Note Reviewed Verification: I have reviewed the TMS Orderlies Teacher Note and agree with the contents. The patient remains a candidate to continue TMS treatment per protocol. Assessment and Plan (1) Major depressive disorder, recurrent severe without psychotic features: Status: Acute Plan Patient is showing clear improvement Time Spent With Patient Time: Total time managing care of this patient today ____ minutes.
--- NOTE | 2022-11-05 17:26 | HO.TMSDAILY2 ---
TMS Daily Progress Note Daily TMS Progress Note Date of Service: 11/20/22 Week #: 5 Treatment #(05-14): 23 PHQ-9 Pre-Treatment (05-11): 17 PHQ-9 Most Recent (05-11): 2 Reviewed: TMS Tech Note Reviewed Verification: I have reviewed the TMS Manager Philosophy Note and agree with the contents. The patient remains a candidate to continue TMS treatment per protocol. Assessment and Plan (1) Major depressive disorder, recurrent severe without psychotic features: Status: Acute Plan cont to be remarkably improved Time Spent With Patient Time: Total time managing care of this patient today ____ minutes.
--- NOTE | 2022-11-20 16:10 | P.PNPS_ITS ---
TMS Daily Progress Note Daily TMS Progress Note Date of Service: 11/08/22 Week #: 6 Treatment #(05-14): 26 PHQ-9 Pre-Treatment (05-11): 17 PHQ-9 Most Recent (05-11): 2 Reviewed: TMS Tech Note Reviewed Verification: I have reviewed the TMS Environmental Tech Note and agree with the contents. The patient remains a candidate to continue TMS treatment per protocol. Assessment and Plan (1) Major depressive disorder, recurrent severe without psychotic features: Status: Acute Plan pt continues to do well no c/o side effects Time Spent With Patient Time: Total time managing care of this patient today ____ minutes.
--- NOTE | 2022-11-20 16:13 | HO.TMSDAILY2 ---
TMS Daily Progress Note Daily TMS Progress Note Date of Service: 11/09/22 Week #: 6 Treatment #(05-14): 27 PHQ-9 Pre-Treatment (05-11): 17 PHQ-9 Most Recent (05-11): 2 CGI-I Most Recent: 1 = Very Much Improved Reviewed: TMS Tech Note Reviewed Verification: I have reviewed the TMS Help Desk Internship Note and agree with the contents. The patient remains a candidate to continue TMS treatment per protocol. Assessment and Plan (1) Major depressive disorder, recurrent severe without psychotic features: Status: Acute Plan pt doing well Time Spent With Patient Time: Total time managing care of this patient today ____ minutes.
--- NOTE | 2022-11-20 16:58 | P.PNPS_ITS ---
TMS Daily Progress Note Daily TMS Progress Note Date of Service: 11/13/22 Week #: 6 Treatment #(05-14): 29 PHQ-9 Pre-Treatment (05-11): 17 PHQ-9 Most Recent (05-11): 2 CGI-I Most Recent: 1 = Very Much Improved Reviewed: TMS Tech Note Reviewed Verification: I have reviewed the TMS Insurance And Benefits Clerk Note and agree with the contents. The patient remains a candidate to continue TMS treatment per protocol. Assessment and Plan (1) Major depressive disorder, recurrent severe without psychotic features: Status: Acute Plan pt doing well Time Spent With Patient Time: Total time managing care of this patient today ____ minutes.
--- NOTE | 2022-11-20 16:58 | HO.TMSDAILY2 ---
TMS Daily Progress Note Daily TMS Progress Note Date of Service: 11/12/22 Week #: 6 Treatment #(05-14): 28 PHQ-9 Pre-Treatment (05-11): 17 PHQ-9 Most Recent (05-11): 1 CGI-I Most Recent: 1 = Very Much Improved Reviewed: TMS Tech Note Reviewed Verification: I have reviewed the TMS Senior Linux Unix Administrator Note and agree with the contents. The patient remains a candidate to continue TMS treatment per protocol. Assessment and Plan Time Spent With Patient Time: Total time managing care of this patient today ____ minutes.
--- NOTE | 2022-12-09 23:17 | P.PNPS_ITS ---
TMS Daily Progress Note Daily TMS Progress Note Date of Service: 11/14/22 Week #: 6 Treatment #(05-14): 30 PHQ-9 Pre-Treatment (05-11): 17 PHQ-9 Most Recent (05-11): 1 CGI-I Most Recent: 1 = Very Much Improved Reviewed: TMS Tech Note Reviewed Verification: I have reviewed the TMS Mercury Cell Cleaner Note and agree with the contents. The patient remains a candidate to continue TMS treatment per protocol. Assessment and Plan (1) Major depressive disorder, recurrent severe without psychotic features: Status: Acute Plan continue treatment plan markedly improved no complaints of side effects of any significance Time Spent With Patient Time: Total time managing care of this patient today ____ minutes.
--- NOTE | 2022-12-09 23:18 | P.PNPS_ITS ---
TMS Daily Progress Note Daily TMS Progress Note Date of Service: 11/15/22 Week #: 7 Treatment #(05-14): 31 PHQ-9 Pre-Treatment (05-11): 17 PHQ-9 Most Recent (05-11): 1 CGI-I Most Recent: 1 = Very Much Improved Reviewed: TMS Tech Note Reviewed Verification: I have reviewed the TMS Technical Planner Note and agree with the contents. The patient remains a candidate to continue TMS treatment per protocol. Assessment and Plan (1) Major depressive disorder, recurrent severe without psychotic features: Status: Acute Plan continue treatment plan feeling peaceful much improved Time Spent With Patient Time: Total time managing care of this patient today ____ minutes.
--- NOTE | 2022-12-09 23:20 | HO.TMSDAILY2 ---
TMS Daily Progress Note Daily TMS Progress Note Date of Service: 11/16/22 Week #: 7 Treatment #(05-14): 32 PHQ-9 Pre-Treatment (05-11): 17 PHQ-9 Most Recent (05-11): 1 CGI-I Most Recent: 1 = Very Much Improved Reviewed: TMS Tech Note Reviewed Verification: I have reviewed the TMS Pneumatic Tube Repairer Note and agree with the contents. The patient remains a candidate to continue TMS treatment per protocol. Assessment and Plan (1) Major depressive disorder, recurrent severe without psychotic features: Status: Acute Plan continue treatment plan feeling peaceful much improved Some fatigue at times status post treatment Time Spent With Patient Time: Total time managing care of this patient today ____ minutes.
--- NOTE | 2022-12-09 23:21 | P.PNPS_ITS ---
TMS Daily Progress Note Daily TMS Progress Note Date of Service: 12/09/22 Week #: 7 Treatment #(05-14): 33 PHQ-9 Pre-Treatment (05-11): 17 PHQ-9 Most Recent (05-11): 1 CGI-I Most Recent: 1 = Very Much Improved Reviewed: TMS Tech Note Reviewed Verification: I have reviewed the TMS Machine Operator Farmworker Note and agree with the contents. The patient remains a candidate to continue TMS treatment per protocol. Assessment and Plan Time Spent With Patient Time: Total time managing care of this patient today ____ minutes.
--- NOTE | 2022-12-09 23:22 | P.PNPS_ITS ---
TMS Daily Progress Note Daily TMS Progress Note Date of Service: 11/20/22 Week #: 8 Treatment #(05-14): 34 PHQ-9 Pre-Treatment (05-11): 17 PHQ-9 Most Recent (05-11): 1 CGI-I Most Recent: 1 = Very Much Improved Reviewed: TMS Tech Note Reviewed Verification: I have reviewed the TMS Boilermaker'S Assistant Note and agree with the contents. The patient remains a candidate to continue TMS treatment per protocol. Assessment and Plan (1) Major depressive disorder, recurrent severe without psychotic features: Status: Acute Plan Continues with remarkable improvement some concern regarding approaching the end of treatment Time Spent With Patient Time: Total time managing care of this patient today ____ minutes.
--- NOTE | 2022-12-09 23:24 | P.PNPS_ITS ---
TMS Daily Progress Note Daily TMS Progress Note Date of Service: 11/21/22 Week #: 8 Treatment #(05-14): 35 PHQ-9 Pre-Treatment (05-11): 17 PHQ-9 Most Recent (05-11): 1 CGI-I Most Recent: 1 = Very Much Improved Reviewed: TMS Tech Note Reviewed Verification: I have reviewed the TMS Repeat Chief Note and agree with the contents. The patient remains a candidate to continue TMS treatment per protocol. Assessment and Plan (1) Major depressive disorder, recurrent severe without psychotic features: Status: Acute Plan The patient was seen discuss treatment course. Patient did have some difficulty with the immediate strength of the tapping underneath the magnet. She did have some fatigue at times post treatment. Patient shows marked stability in mood and improvement. She was able to go through her son's room in go through some clothes he had committed suicide a couple of years ago and she was able to do this she states with some degree of equanimity feels much improved. Went over treatment protocol for potential relapse and future treatment if required Time Spent With Patient Time: Total time managing care of this patient today ____ minutes.
--- NOTE | 2022-12-09 23:30 | P.PNPS_ITS ---
TMS Daily Progress Note Daily TMS Progress Note Date of Service: 11/22/22 Week #: 8 Treatment #(05-14): 36 PHQ-9 Pre-Treatment (05-11): 17 PHQ-9 Most Recent (05-11): 2 CGI-I Most Recent: 1 = Very Much Improved Reviewed: TMS Tech Note Reviewed Verification: I have reviewed the TMS Manager Provider Relations Note and agree with the contents. The patient remains a candidate to continue TMS treatment per protocol. Assessment and Plan (1) Major depression, recurrent, full remission: Status: Acute Plan Patient has shown remarkable recovery had failed multiple medication trials and counseling. Feels much more like herself or motivation sense of equanimity feels quite grateful and hopeful regarding treatment. We had reviewed read treatment protocol if needed in the future Time Spent With Patient Time: Total time managing care of this patient today ____ minutes.
== END 2022-11-23 11:42 | disposition home or self-care (01) ==
LOC: HO.PTMS 08:00
PROVIDERS: Visit Provider Psychiatry & Neurology Psychiatry
DX: F33.2 Major depressive disorder, recurrent severe without psychotic features (principal)
CPT/HCPCS: 90868

== ENCOUNTER → 2022-10-04 14:00 | Outpatient (BNV) | payer OTHER, SELFPAY | PROVIDERS: Visit Provider Psychiatry & Neurology Psychiatry | DX: F33.2 Major depressive disorder, recurrent severe without psychotic features (principal); F33.42 Major depressive disorder, recurrent, in full remission | CPT/HCPCS: 90867; 90868 ==

== ENCOUNTER 2022-10-08 13:42 | Outpatient (REF) | payer OTHER, SELFPAY ==
--- NOTE | ~2022-10-08 | CT_ITS ---
EXAMINATION: CT ABDOMEN AND PELVIS WITH CONTRAST CLINICAL INFORMATION: Hernia without obstruction COMPARISON: Previous dated 02/05/2022 TECHNIQUE: Multidetector volumetric images were obtained from the superior aspect of the liver through the pubic symphysis following administration 85 mL of Omnipaque 350 intravenous contrast. Sagittal and coronal reformatted images were obtained on the technologist's workstation. Oral contrast: No This CT examination was performed using dose optimization techniques as appropriate, variously including the following: *Automated exposure control *Adjustment of mA and/or kV according to patient size (this includes techniques or standardized protocols for targeted exams where dose is matched to indication/reason for exam; i.e. extremities or head) *Use of iterative reconstruction technique DLP: 704 mGy-cm FINDINGS: LUNG BASES: Stable appearing small nodule left lung base. Linear in appearance. Image 27 LIVER, GALLBLADDER, AND BILIARY TREE: The liver is normal in size, shape, and attenuation. No focal hepatic lesion or biliary ductal dilatation is present. The gallbladder is unremarkable with no evidence of radiopaque gallstones, gallbladder wall thickening, or obvious pericholecystic inflammatory changes. PANCREAS: Unremarkable. SPLEEN: Unremarkable. ADRENAL GLANDS: Unremarkable. KIDNEYS AND URETERS: Some small areas of low-attenuation likely represent evolving cystic change. Too small to characterize BLADDER: Unremarkable. GASTROINTESTINAL TRACT: The bowel pattern is overall felt to be nonobstructive. Some mildly prominent caliber loops in the left upper quadrant. ABDOMINAL WALL: Once again on image 43 possible mild ventral herniation of omental fat. Orifice measures 1.2 cm LYMPH NODES: There is no bulky adenopathy. VASCULAR: Atherosclerotic changes are noted PELVIC VISCERA: Unremarkable. OSSEOUS STRUCTURES: Degenerative changes are noted. CT/CT abdomen pelvis w IV con IMPRESSION: Findings do suggest some ventral herniation of omental fat. This is occurring 5.2 cm above the umbilicus. Similar to previous. This does not involve bowel. Overall nonobstructive bowel pattern Other findings are as described above Fleischner guidelines were followed.
[2022-10-08] MEDS: iohexoL 350 MG/ML 100 ML INFUS..BTL IV (16:15)
[2022-10-08] MEDS: Barium Sulfate Oral (Berry) 450 ML ORAL.SUSP 900 ML PO (16:16)
== END 2022-10-08 13:43 | disposition home or self-care (01) ==
LOC: HO.CT 13:42
PROVIDERS: Visit Provider Internal Medicine
DX: R10.9 Unspecified abdominal pain (principal); K52.9 Noninfective gastroenteritis and colitis, unspecified; K43.9 Ventral hernia without obstruction or gangrene
CPT/HCPCS: 74177; Q9967

== ENCOUNTER 2022-10-31 07:50 | Outpatient (REF) | payer OTHER, SELFPAY | END 2022-10-31 07:51 | disposition home or self-care (01) | LOC: HO.LAB 07:50 | PROVIDERS: PCP Internal Medicine; Visit Provider Nurse Practitioner Family | DX: K21.9 Gastro-esophageal reflux disease without esophagitis (principal); K58.1 Irritable bowel syndrome with constipation; K59.01 Slow transit constipation; R10.31 Right lower quadrant pain | CPT/HCPCS: 36415; 86003; 99212 ==

== ENCOUNTER 2022-10-31 07:50 | Outpatient (AMB) | payer OTHER, SELFPAY ==
[2022-10-31 08:13] VITALS: BMI 27.9
--- NOTE | 2022-10-31 08:13 | A.OFFVIS_ITS ---
Intake Vital Signs 10/31/22 08:13 Height 5 ft 7.5 in Weight 180 lb 12.465 oz BMI 27.9 Blood Pressure Location Lt brachial Position Sitting Intake Visit Reasons: 6 month follow up GERD, Intake Note: Millicent presents in office as a est.patient for 6 month follow up GERD PT CC: pt reports having LRQP, GERD, constipation , loops in small intensest, pt denies any other GI Issues Accompanied by: Spouse Allergies acetaminophen [Percocet] Allergy (Unknown, Verified 10/31/22 08:13) Rash iodine Allergy (Unknown, Verified 10/31/22 08:13) Wheezing, rash oxycodone [Percocet] Allergy (Unknown, Verified 10/31/22 08:13) Wheezing, rash azithromycin Allergy (Verified 10/31/22 08:13) rash Percodan Allergy (Unknown, Uncoded 10/31/22 08:13) wheezing and rash HPI 6 month follow up GERD, HPI Details LAST VISIT GERD (gastroesophageal reflux disease) Continue famotidine at bedtime and pantoprazole in the morning half an hour before breakfast. Patient was encouraged to also avoid dietary triggers of late night snacking. Staying upright for minimal 3 hours after meals discussed with patient. Next visit will discuss leave her off of PPI Constipation Patient reports that she moves her bowels well. She does not empty her bowels completely and does not go to the bathroom every day. Patient can start Colace at bedtime and MiraLax every morning IBS (irritable bowel syndrome) Low FODMAP diet discussed with patient. List of food recommended as well as list of food to avoid given to patient. I will see her in 6 months, sooner on as needed basis. Patient is agreeable to this plan and verbalizes understanding of instructions. She was given the opportunity to ask questions all questions answered. ? Thank you for allowing me to participate in her care Plan Medications New polyethylene glycol 3350 (Miralax) 17 grams PO DAILY 510 grams 2RF docusate sodium 100 mg PO BEDTIME 90 caps 3RF K59.00 Discontinued methylcellulose (laxative) (Citrucel) take it with full glass of water Discontinued Reason: Doctor's Order 500 mg PO DAILY 90 tabs 2RF K59.00 bisacodyl [place] 2 tabletas cada noche comenzando 7 hernández antes del procedimiento Discontinued Reason: Patient Completed Course 10 mg (2 x 5 mg) PO BEDTIME 14 tabs 0RF Z12.11 TODAY'S VISIT Patient is here today for follow-up. Patient is accompanied by her . Patient states that he has been having severe acid reflux with dyspepsia without dysphagia or odynophagia. Currently taking pantoprazole and feels like it is not working. Patient reports that she is careful on what she eats. Reports right sided abdominal pain preop PCP send patient for CT scan that did not show any acute processes that would explain patient's pain. Patient reports that the pain is there sometimes postprandially and sometimes pain is none related to eating. Patient reports that she is moving her bowels, however she states that her bowels are thin. History of hemorrhoids. Denies melena, hematochezia, unintentional weight loss or ribbon like stools. Patient reports that the pain in her abdomen is pretty severe. She states that sometimes it wakes her up during the night [facility] Medical History (Updated 10/31/22 @ 10:[address] [facility]) Abnormal colonoscopy Adhesive capsulitis of shoulder Annual physical exam Anxiety and depression DM type 2 (diabetes mellitus, type 2) Dysuria History of trigger finger Hyperlipemia Microalbuminuria Migraine headache Surgical History H/O parathyroidectomy History of 2 sections History of ankle surgery History of esophagogastroduodenoscopy (EGD) History of sinus surgery Hx of colonoscopy S/P tonsillectomy Family History Father No problems noted. Mother No problems noted. Other Mental health disorder Social History Housing: House Are you a primary career resource specialist to a significant other at home: No Do you presently have visiting nurse or other home services: No Alcohol intake: current Alcohol intake frequency: a few times a month Patient Tobacco Use Status: Never used Tobacco e-Cigarette/Vaping Use: Never Used Current occupational status: retired Current occupation: retired-right handed Cognitive needs: No Hearing needs: No Vision needs: Yes Female Reproductive History Menstrual Age of Menarche: 11 Review of Systems Const Denies weight gain and Denies weight loss ENT Reports no additional complaints, Denies dysphagia and Denies odynophagia Card Reports no additional complaints Resp Reports no additional complaints GI Reports abdominal pain, Denies belching, Denies melena, Reports bloating, Denies change in bowel habits, Reports constipation, Denies dysphagia, Denies excessive flatus, Reports dyspepsia, Reports heartburn, Denies diarrhea, Denies loose stools, Denies nausea, Denies odynophagia and Denies vomiting Reports no additional complaints Musc Reports no additional complaints Neuro Reports no additional complaints Psych Reports no additional complaints Endo Reports no additional complaints Physical Exam Vital Signs: BMI result Body Mass Index 27.9 Const General: healthy appearing, no acute distress and well developed Nutritional Appearance: well nourished Orientation/consciousness: patient oriented x3 HEENT Head: Yes normal to inspection, Yes normocephalic and Yes atraumatic Face and sinus: Yes normal facial exam Mouth: Normal oral and palatal mucosa present Throat: Yes posterior oropharynx normal, Yes tonsils normal and Yes uvula midline Eyes General: appearance normal, both eyes and all related structures Neck Neck: Yes normal visual inspection, Yes full ROM and Yes trachea midline Thyroid: Thyroid normal Resp Effort & Inspection: normal respiratory effort, able to speak in complete sentences, no tracheal deviation and symmetric chest movement Auscultation: clear to auscultation bilaterally Cardio Rate: regular rate Heart sounds: S1 normal heart sound present and S2 normal heart sound present GI Inspection: Yes normal to inspection and No distended Palpation (GI): Soft to palpation, not firm, nontender and No hepatosplenomegaly present Auscultation: normal bowel sounds General: Yes no CVA tenderness Back/Spine/Pelvis Back: no CVA tenderness Skin General skin exam: elasticity normal, turgor normal and dry skin Neuro General: patient oriented x3 Psych Appearance: grossly normal Mental Status: mental status grossly normal Speech and movement: Normal speech and movement present Affect: normal affect Results Reviewed Results Reviewed: ABDOMINAL CT SCAN OCTOBER 08 2022 FINDINGS: LUNG BASES: Stable appearing small nodule left lung base. Linear in appearance. Image 27? LIVER, GALLBLADDER, AND BILIARY TREE: The liver is normal in size, shape, and attenuation. No focal hepatic lesion or biliary ductal dilatation is present. The gallbladder is unremarkable with no evidence of radiopaque gallstones, gallbladder wall thickening, or obvious pericholecystic inflammatory changes.? PANCREAS: Unremarkable.? SPLEEN: Unremarkable.? ADRENAL GLANDS: Unremarkable.? KIDNEYS AND URETERS: Some small areas of low-attenuation likely represent evolving cystic change. Too small to characterize? BLADDER: Unremarkable.? GASTROINTESTINAL TRACT: The bowel pattern is overall felt to be nonobstructive. Some mildly prominent caliber loops in the left upper quadrant.? ABDOMINAL WALL: Once again on image 43 possible mild ventral herniation of omental fat. Orifice measures 1.2 cm? LYMPH NODES: There is no bulky adenopathy. VASCULAR: Atherosclerotic changes are noted PELVIC VISCERA: Unremarkable.? OSSEOUS STRUCTURES: Degenerative changes are noted.? CT/CT abdomen pelvis w IV con IMPRESSION: Findings do suggest some ventral herniation of omental fat. This is occurring 5.2 cm above the umbilicus. Similar to previous. This does not involve bowel. Overall nonobstructive bowel pattern Assessment & Plan Assessment & Plan (1) Abdominal pain: Code(s): R10.9 - Unspecified abdominal pain Qualifiers: Abdominal location: right lower quadrant Qualified Code(s): R10.31 - Right lower quadrant pain Plan: Patient continues to have right-sided abdominal pain. Negative Ritchie sign during exam. Will send patient for HIDA scan. (2) Constipation: Code(s): K59.00 - Constipation, unspecified Qualifiers: Constipation type: slow transit constipation Qualified Code(s): K59.01 - Slow transit constipation Plan: Patient continues to be constipated. Patient can take MiraLax. I will have her take magnesium and senna at night time. Patient was also encouraged to increase fluid intake and activity to promote better bowel motility (3) IBS (irritable bowel syndrome): Code(s): K58.9 - Irritable bowel syndrome without diarrhea Qualifiers: Irritable bowel syndrome type: with constipation Qualified Code(s): K58.1 - Irritable bowel syndrome with constipation Plan: FODMAP diet discussed with patient. Patient will follow FODMAP diet. List of food recommended well as list of food to avoid discussed. Patient has list at home that she will try to follow. Patient will try to stay away from lactose and gluten to see if is going to make a difference. Will send patient for RAST allergen testing (4) GERD (gastroesophageal reflux disease): Code(s): K21.9 - Gastro-esophageal reflux disease without esophagitis Qualifiers: Esophagitis presence: esophagitis presence not specified Qualified Code(s): K21.9 - Gastro-esophageal reflux disease without esophagitis Plan: Will change pantoprazole to lansoprazole. Patient can also try sucralfate at night time. Will stop famotidine for now. Discussed with patient avoiding dietary triggers in late night snacking. Staying upright for minimal 3 hours after meals discussed with patient. Orders: Orders Rast Allergen Today K21.9 - Gastro-esophageal reflux disease without esophagitis NM hepatobiliary w pharm Today R10.9 - Unspecified abdominal pain Medications: New magnesium oxide 400 mg PO DAILY 90 caps 2RF K59.04 - Chronic idiopathic constipation hydrocortisone 2.5% (Proctosol HC) 1 appl CO BID-QID PRN 30 grams 2RF hemorrhoids K64.9 - Unspecified hemorrhoids sucralfate 10 mL PO BEDTIME 400 mL 3RF K21.9 - Gastro-esophageal reflux disease without esophagitis lansoprazole 30 mg PO DAILY 30 caps 3RF K21.9 - Gastro-esophageal reflux disease without esophagitis Discontinued 2 famotidine (Pepcid) Discontinued Reason: Doctor's Order 20 mg PO BEDTIME 30 tabs 3RF K21.9 - Gastro-esophageal reflux disease without esophagitis pantoprazole Discontinued Reason: Doctor's Order 40 mg PO DAILY 60 tabs 3RF Coding Level of Care Code Est Pt Level 4 (60919) Diagnoses Abdominal pain R10.31 Abdominal location: right lower quadrant Constipation K59.01 Constipation type: slow transit constipation IBS (irritable bowel syndrome) K58.1 Irritable bowel syndrome type: with constipation GERD (gastroesophageal reflux disease) K21.9 Esophagitis presence: esophagitis presence not specified Time Spent (min) 40 Comment 25 minutes spent with patient and additional 15 minutes spent reviewing her records
== END 2022-10-31 09:08 | disposition home or self-care (01) ==
PROVIDERS: Visit Provider Nurse Practitioner Family
DX: R10.31 Right lower quadrant pain (principal); K59.01 Slow transit constipation; K58.1 Irritable bowel syndrome with constipation; K21.9 Gastro-esophageal reflux disease without esophagitis
CPT/HCPCS: 99214

== ENCOUNTER 2022-11-05 11:34 | Outpatient (AMB) | payer OTHER, SELFPAY ==
--- NOTE | 2022-11-05 11:38 | MHC.OFFVIS ---
Intake Vital Signs 11/05/22 11:44 Height 5 ft 7.5 in Weight 180 lb BMI 27.8 BP 117/64 Blood Pressure Location Rt brachial Position Sitting Pulse 67 Intake Visit Reasons: Ventral Hernia Intake Note: Patient referred for ventral hernia. Reports hernia has been present for 24 years. Noticed after child's . Hernia recently became irritated and painful after heavy furniture moving. Stone Grader Required: No Accompanied by: Self / Same As Patient Allergies acetaminophen [Percocet] Allergy (Unknown, Verified 11/05/22 11:39) Rash iodine Allergy (Unknown, Verified 11/05/22 11:39) Wheezing, rash oxycodone [Percocet] Allergy (Unknown, Verified 11/05/22 11:39) Wheezing, rash azithromycin Allergy (Verified 11/05/22 11:39) rash Percodan Allergy (Unknown, Uncoded 11/05/22 11:39) wheezing and rash HPI HPI Comments History of Present Illness Details Patient presents for evaluation of a umbilical/incisional hernia. She has had this many years time. He has become more symptomatic and increasing in size. She wishes to have repaired. Patient has a longstanding history of constipation and colonic dysmotility. She has had multiple colonoscopies. Patient's past surgical history include laparoscopic assisted sigmoid resection and section x2. Chart was reviewed and patient evaluated . Cat scan shows ventral hernia. [facility] Medical History (Updated 11/05/22 @ 11:43 by BEE Chacon) Abnormal colonoscopy Adhesive capsulitis of shoulder Annual physical exam Anxiety and depression DM type 2 (diabetes mellitus, type 2) Dysuria History of open sigmoidectomy (~04/15/04) History of trigger finger Hyperlipemia Microalbuminuria Migraine headache Trigger thumb of right hand (~1963) Surgical History (Updated 11/05/22 @ 12:56 by Antoine Forbes MD) H/O parathyroidectomy History of 2 sections History of ankle surgery History of esophagogastroduodenoscopy (EGD) History of sinus surgery Hx of colonoscopy S/P tonsillectomy Family History Father No problems noted. Mother No problems noted. Other Mental health disorder Social History (Updated 11/05/22 @ 11:43 by BEE Chacon) Housing: House Are you a primary career information specialist to a significant other at home: No Do you presently have visiting nurse or other home services: No Alcohol intake: current Alcohol intake frequency: a few times a month Patient Tobacco Use Status: Never used Tobacco e-Cigarette/Vaping Use: Never Used Current occupational status: retired Current occupation: retired-right handed Cognitive needs: No Hearing needs: No Vision needs: Yes Female Reproductive History Menstrual Age of Menarche: 11 Physical Exam Vital Signs: Last Vital Signs Pulse 67 11/05/22 11:44 BP 117/64 11/05/22 11:44 BMI result Body Mass Index 27.8 Chest Other: Chest breath sounds bilaterally, HS 1 in 2 GI Other: Abdomen corpulent, soft, incisional/umbilical hernia approximately 2 cm in size. Groin exam negative Assessment & Plan Assessment & Plan (1) Abdominal wall hernia: Code(s): K43.9 - Ventral hernia without obstruction or gangrene Plan Patient is currently being worked up by her GI physicians for cholelithiasis. Risks, benefits, alternatives of umbilical/incisional hernia repair reviewed the patient included but not limited to bleeding, infection, recurrence, numbness, pain, scarring. Patient wishes to proceed but which wants to wait until the ultrasound results are completed because she would consider combining laparoscopic cholecystectomy with umbilical hernia repair. She is being worked up for this by her cake washer. Patient will contact us once the ultrasound is done and direct further therapy based the sonogram. Coding Level of Care Code New Pt Level 4 (26419) Diagnoses Abdominal wall hernia K43.9
[2022-11-05 11:44] VITALS: BP 117/64; PULSE 67; BMI 27.8
== END 2022-11-05 13:06 | disposition home or self-care (01) ==
PROVIDERS: PCP Internal Medicine; Referring Provider Internal Medicine; Visit Provider Surgery
DX: K43.9 Ventral hernia without obstruction or gangrene (principal)
CPT/HCPCS: 99204

== ENCOUNTER → 2022-11-05 11:34 | Outpatient (BNVA) | payer OTHER, SELFPAY | PROVIDERS: PCP Internal Medicine; Referring Provider Internal Medicine; Visit Provider Surgery | DX: K43.9 Ventral hernia without obstruction or gangrene (principal) | CPT/HCPCS: 99202 ==

== ENCOUNTER → 2022-11-23 07:48 | Outpatient (REF) | payer OTHER, SELFPAY ==
--- NOTE | ~2022-11-23 | NM_ITS ---
EXAMINATION: BILIARY TRACT IMAGING STUDY WITH CCK CLINICAL INFORMATION: Unspecified abdominal pain.. COMPARISON: CT of the abdomen and pelvis done on 10/08/2022.. TECHNIQUE: Serial gamma scintillation camera images were obtained over the abdomen for a total observation period of 60 minutes following the intravenous administration of 5 mCi Tc-99m mebrofenin. FINDINGS: There is good concentration of activity in the liver by 5 minutes post injection. Biliary activity is visualized by 10 minutes. The gallbladder is well visualized by 12 minutes. Small bowel is well visualized by 30 minutes. At 60 minutes post radiopharmaceutical injection, a 30-minute infusion of 1.6 micrograms Sincalide was then begun and an additional 40 minutes of images were obtained. There is good emptying of the gallbladder. By the end of the study there is good clearance of activity from the liver and visualization of diffuse small bowel activity. The calculated gallbladder ejection fraction is 95% (normal gallbladder ejection fraction is greater than 35%). NM/NM hepatobiliary w pharm IMPRESSION: Visualization of the gallbladder is evidence of a patent cystic duct and strong evidence against the diagnosis of acute cholecystitis. The common bile duct is patent. Gallbladder emptying and ejection fraction are normal. Liver function appears normal.
== END ==
LOC: HO.NUCMED 07:48
PROVIDERS: PCP Internal Medicine; Visit Provider Nurse Practitioner Family
DX: R10.9 Unspecified abdominal pain (principal)
CPT/HCPCS: 78227; A9537; J2805

== ENCOUNTER 2023-01-23 08:32 | Outpatient (AMB) | payer OTHER, SELFPAY ==
[2023-01-23 08:37] VITALS: BP 123/72; PULSE 65; BMI 28.4
--- NOTE | 2023-01-23 08:37 | MHC.OFFVIS ---
Intake Vital Signs 01/23/23 08:37 Height 5 ft 7.5 in Weight 183 lb 13.848 oz BMI 28.4 BP 123/72 Blood Pressure Location Lt brachial Position Sitting Pulse 65 Pulse Source Pulse Oximeter Intake Visit Reasons: 3 month follow up Intake Note: Patient is here for a 3 month follow up, patient c/o diarrhea for 6 weeks now, patient also stated her acid reflux is back Allergies acetaminophen [Percocet] Allergy (Unknown, Verified 01/23/23 08:40) Rash iodine Allergy (Unknown, Verified 01/23/23 08:40) Wheezing, rash oxycodone [Percocet] Allergy (Unknown, Verified 01/23/23 08:40) Wheezing, rash azithromycin Allergy (Verified 01/23/23 08:40) rash Percodan Allergy (Unknown, Uncoded 11/05/22 11:39) wheezing and rash HPI 3 month follow up HPI Details LAST VISIT: Abdominal pain Patient continues to have right-sided abdominal pain. Negative Ritchie sign during exam. Will send patient for HIDA scan. Constipation Patient continues to be constipated. Patient can take MiraLax. I will have her take magnesium and senna at night time. Patient was also encouraged to increase fluid intake and activity to promote better bowel motility IBS (irritable bowel syndrome) FODMAP diet discussed with patient. Patient will follow FODMAP diet. List of food recommended well as list of food to avoid discussed. Patient has list at home that she will try to follow. Patient will try to stay away from lactose and gluten to see if is going to make a difference. Will send patient for RAST allergen testing GERD (gastroesophageal reflux disease) Will change pantoprazole to lansoprazole. Patient can also try sucralfate at night time. Will stop famotidine for now. Discussed with patient avoiding dietary triggers in late night snacking. Staying upright for minimal 3 hours after meals discussed with patient. TODAY'S VISIT Patient is here today for follow-up. Patient reports that she has been having lots of diarrhea. Abdominal cramping. Patient states that just last week her symptoms got better. Patient reports that she has been under lot of stress moving her mom to assisted living from her house. Between packing and moving things patient has been stressed out. Patient reports that she has had increase in acid reflux in the last few days. Patient reports that she has been trying to avoid dietary triggers. In the last couple days patient states that she feels like she is constipated more. Patient used to take Linzess and would like to try to take it again. Patient denies melena, hematochezia, unintentional weight loss or ribbon like stools. Patient reports occasional dyspepsia without dysphagia or odynophagia. Patient denies any nausea or vomiting. [facility] Medical History (Updated 12/09/22 @ 23:31 by Jean Pina MD) History of open sigmoidectomy (~04/15/04) Trigger thumb of right hand (~1963) Migraine headache Annual physical exam Anxiety and depression Microalbuminuria Abnormal colonoscopy Hyperlipemia DM type 2 (diabetes mellitus, type 2) Dysuria Adhesive capsulitis of shoulder History of trigger finger Surgical History (Updated 11/05/22 @ 12:56 by Antoine Forbes MD) History of esophagogastroduodenoscopy (EGD) Hx of colonoscopy History of ankle surgery H/O parathyroidectomy History of sinus surgery S/P tonsillectomy History of 2 sections Family History Father No problems noted. Mother No problems noted. Other Mental health disorder Social History Housing: House Are you a primary care support representative to a significant other at home: No Do you presently have visiting nurse or other home services: No Alcohol intake: current Alcohol intake frequency: a few times a month Patient Tobacco Use Status: Never used Tobacco e-Cigarette/Vaping Use: Never Used Current occupational status: retired Current occupation: retired-right handed Cognitive needs: No Hearing needs: No Vision needs: Yes Female Reproductive History Menstrual Age of Menarche: 11 Review of Systems Const Denies weight gain and Denies weight loss ENT Reports no additional complaints, Denies dysphagia and Denies odynophagia Card Reports no additional complaints Resp Reports no additional complaints GI Denies abdominal pain, Denies belching, Denies melena, Reports bloating, Denies change in bowel habits, Reports constipation, Denies dysphagia, Denies excessive flatus, Denies dyspepsia, Reports heartburn, Denies diarrhea, Reports loose stools, Denies nausea, Denies odynophagia and Denies vomiting Reports no additional complaints Musc Reports no additional complaints Neuro Reports no additional complaints Psych Reports no additional complaints Endo Reports no additional complaints Physical Exam Vital Signs: Last Vital Signs Pulse 65 01/23/23 08:37 BP 123/72 01/23/23 08:37 BMI result Body Mass Index 28.4 Const General: healthy appearing, no acute distress and well developed Nutritional Appearance: well nourished Orientation/consciousness: patient oriented x3 HEENT Head: Yes normal to inspection, Yes normocephalic and Yes atraumatic Face and sinus: Yes normal facial exam Mouth: Normal oral and palatal mucosa present Throat: Yes posterior oropharynx normal, Yes tonsils normal and Yes uvula midline Eyes General: appearance normal, both eyes and all related structures Neck Neck: Yes normal visual inspection, Yes full ROM and Yes trachea midline Thyroid: Thyroid normal Resp Effort & Inspection: normal respiratory effort, able to speak in complete sentences, no tracheal deviation and symmetric chest movement Auscultation: clear to auscultation bilaterally Cardio Rate: regular rate Heart sounds: S1 normal heart sound present and S2 normal heart sound present GI Inspection: Yes normal to inspection and No distended Palpation (GI): Soft to palpation, not firm, nontender and No hepatosplenomegaly present Auscultation: normal bowel sounds General: Yes no CVA tenderness Back/Spine/Pelvis Back: no CVA tenderness Skin General skin exam: elasticity normal, turgor normal and dry skin Neuro General: patient oriented x3 Psych Appearance: grossly normal Mental Status: mental status grossly normal Assessment & Plan Assessment & Plan (1) Abdominal pain: Code(s): R10.9 - Unspecified abdominal pain Qualifiers: Abdominal location: right lower quadrant Qualified Code(s): R10.31 - Right lower quadrant pain (2) Constipation: Code(s): K59.00 - Constipation, unspecified Qualifiers: Constipation type: slow transit constipation Qualified Code(s): K59.01 - Slow transit constipation (3) IBS (irritable bowel syndrome): Code(s): K58.9 - Irritable bowel syndrome without diarrhea Qualifiers: Irritable bowel syndrome type: with both diarrhea and constipation Qualified Code(s): K58.2 - Mixed irritable bowel syndrome (4) GERD (gastroesophageal reflux disease): Code(s): K21.9 - Gastro-esophageal reflux disease without esophagitis Qualifiers: Esophagitis bleeding: without hemorrhage Esophagitis presence: with esophagitis Qualified Code(s): K21.00 - Gastro-esophageal reflux disease with esophagitis, without bleeding Plan Will change lansoprazole to Nexium. Patient will call our office in 2 weeks if she will continue to have acid reflux. Discussed with patient avoiding dietary triggers in late night snacking. Patient will try Linzess. Recommended to tried 1st thing in the morning on empty stomach. Patient was encouraged to drink plenty fluids throughout the day. Increase activity to promote better bowel motility. Continue low FODMAP diet. I will see patient in 2 months, sooner on as needed basis. Patient is agreeable to this plan and verbalizes understanding of instructions. She was given the opportunity to ask questions all questions answered. Thank you for allowing me to participate in her care Medications: New esomeprazole magnesium (Nexium) 40 mg PO DAILY 30 caps 2RF K21.9 - Gastro-esophageal reflux disease without esophagitis linaclotide (Linzess) 145 mcg PO DAILY 30 caps 2RF Discontinued methylprednisolone Take 1 tablet 12 hours before IV contrast and 1 tablet 2 hours before IV contrast Discontinued Reason: Patient no longer taking 32 mg PO BID 1 day 2 tabs 0RF lansoprazole Discontinued Reason: Doctor's Order 30 mg PO DAILY 90 caps 3RF K21.9 - Gastro-esophageal reflux disease without esophagitis Coding Level of Care Code Est Pt Level 4 (47637) Diagnoses Right lower quadrant abdominal pain R10.31 Abdominal location: right lower quadrant Slow transit constipation K59.01 Constipation type: slow transit constipation Irritable bowel syndrome with both constipation and diarrhea K58.2 Irritable bowel syndrome type: with both diarrhea and constipation Gastroesophageal reflux disease with esophagitis without hemorrhage K21.00 Esophagitis bleeding: without hemorrhage Esophagitis presence: with esophagitis Time Spent (min) 35 Comment 20 minutes spent with patient and additional 15 minutes spent reviewing the records.
== END 2023-01-23 09:37 | disposition home or self-care (01) ==
PROVIDERS: PCP Internal Medicine; Visit Provider Nurse Practitioner Family
DX: R10.31 Right lower quadrant pain (principal); K59.01 Slow transit constipation; K58.2 Mixed irritable bowel syndrome; K21.00 Gastro-esophageal reflux disease with esophagitis, without bleeding
CPT/HCPCS: 99214

== ENCOUNTER → 2023-01-23 08:32 | Outpatient (BNVA) | payer OTHER, SELFPAY | PROVIDERS: PCP Internal Medicine; Visit Provider Nurse Practitioner Family | DX: R10.31 Right lower quadrant pain (principal); K21.00 Gastro-esophageal reflux disease with esophagitis, without bleeding; K58.2 Mixed irritable bowel syndrome; K59.01 Slow transit constipation | CPT/HCPCS: 99212 ==

== ENCOUNTER 2023-01-31 09:32 | Outpatient (AMB) | payer OTHER, SELFPAY ==
--- NOTE | 2023-01-31 09:37 | A.OFFVIS_ITS ---
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 Competitive Athlete Required: No Information Interpreted: non-clinical & clinical Vending Technician: Vending Technician Present (Laurence) Allergies acetaminophen [Percocet] Allergy (Unknown, Verified 01/31/23 09:59) Rash iodine Allergy (Unknown, Verified 01/31/23 09:59) Wheezing, rash oxycodone [Percocet] Allergy (Unknown, Verified 01/31/23 09:59) Wheezing, rash azithromycin Allergy (Verified 01/31/23 09:59) rash Percodan Allergy (Unknown, Uncoded 01/31/23 09:59) wheezing and rash Is last menstrual period known: No Post menopausal: Yes HPI HPI Comments History of Present Illness Details Presenting for annual exam. No complaints. Last Pap/HPV was negative in 01/04 Last Mammogram was BI-RADS 1 in 02/03 Last Colonoscopy was done in 01/04, the recommendation was to repeat in 01/07 [facility] Medical History History of open sigmoidectomy (~04/15/04) Trigger thumb of right hand (~1963) Migraine headache Annual physical exam Anxiety and depression Microalbuminuria Abnormal colonoscopy Hyperlipemia DM type 2 (diabetes mellitus, type 2) Dysuria Adhesive capsulitis of shoulder History of trigger finger Surgical History History of esophagogastroduodenoscopy (EGD) Hx of colonoscopy History of ankle surgery H/O parathyroidectomy History of sinus surgery S/P tonsillectomy History of 2 sections Family History Father No problems noted. Mother No problems noted. Paternal Grandmother Colon cancer Other Mental health disorder Social History Housing: House Are you a primary customer care consultant to a significant other at home: No Do you presently have visiting nurse or other home services: No Alcohol intake: current Alcohol intake frequency: a few times a month Patient Tobacco Use Status: Never used Tobacco e-Cigarette/Vaping Use: Never Used Current occupational status: retired Current occupation: retired-right handed Cognitive needs: No Hearing needs: No Vision needs: Yes Female Reproductive History Menstrual Age of Menarche: 11 control method: none Total pregnancies: 4 Full term: 2 Number of Living Children: 2 Ab spontaneous: 2 Date of last pap smear: 12/19/21 Date of Mammogram: 02/08/22 Date of last Bone Density Screenin04/03/22 Review of Systems Const All systems reviewed & are unremarkable except as noted in HPI and below Card Reports as per HPI Resp Reports as per HPI GI Reports as per HPI and Reports no additional complaints Reports as per HPI Physical Exam Vital Signs: Last Vital Signs BP 114/70 01/31/23 09:57 BMI result Body Mass Index 28.7 Const General: cooperative, healthy appearing and comfortable Chest Chest palpation & inspection: normal inspection of the chest and normal palpation of entire chest wall Breast/axilla inspection: normal inspection of the breasts and normal inspection of the axillae Breast/axilla palpation: normal palpation of the breasts, normal palpation of the axillae and no axillary lymphadenopathy Resp Effort & Inspection: normal respiratory effort Auscultation: clear to auscultation bilaterally Percussion: percussion normal Cardio Palpation: normal PMI Rate: regular rate Rhythm: regular rhythm Heart sounds: no murmurs and no rubs Peripheral pulses: Peripheral pulses 2+ throughout GI Inspection: Yes normal to inspection Palpation (GI): Soft to palpation, nontender, no guarding, not rigid and No hepatosplenomegaly present Percussion: Yes normal to percussion Auscultation: normal bowel sounds Rectal Exam - Female: deferred General: Yes bladder normal to palpation External Female Exam: No lesion Speculum Exam - Vagina: normal appearance of the vagina, normal palpation, normal vaginal discharge and not erythematous Speculum Exam - Cervix: normal appearance of the cervix and normal palpation Bimanual exam- vagina & uterus: normal bimanual exam, normal palpation, uterine size normal, bladder normal to palpation, consistency normal and normal palpation Bimanual Exam- Adnexa, other: normal adnexae, no masses and no tenderness Assessment & Plan Assessment & Plan (1) Well woman exam: Code(s): Z01.419 - Encounter for gynecological examination (general) (routine) without abnormal findings Plan: Co testing not indicated this. Counseled the patient about the recommended dietary allowance of 1200 mg of Calcium & 600 IU of vitamin D. Mammogram ordered. The patient was instructed to perform monthly self-breast exams and schedule annual exam in a year. All questions answered and the patient verbalized understanding. Orders: Orders MM screening mammo BI Today Z12.31 - Encounter for screening mammogram for malignant neoplasm of breast Coding Level of Care Code Est Pt Prev Care 40-64y(28142) Diagnoses Well woman exam Z01.419
[2023-01-31 09:57] VITALS: BP 114/70; BMI 28.7
== END 2023-01-31 10:17 | disposition home or self-care (01) ==
PROVIDERS: PCP Internal Medicine; Visit Provider Obstetrics & Gynecology
DX: Z01.419 Encounter for gynecological examination (general) (routine) without abnormal findings (principal)
CPT/HCPCS: 99396

== ENCOUNTER → 2023-01-31 09:32 | Outpatient (BNVA) | payer OTHER, SELFPAY | PROVIDERS: Visit Provider Obstetrics & Gynecology | DX: Z01.419 Encounter for gynecological examination (general) (routine) without abnormal findings (principal) | CPT/HCPCS: 99396 ==

== ENCOUNTER 2023-02-11 14:11 | Outpatient (REF) | payer OTHER, SELFPAY ==
--- NOTE | ~2023-02-11 | MM_ITS ---
EXAMINATION: MM SCREENING DIGITAL BREAST TOMOSYNTHESIS, BILATERAL CLINICAL INFORMATION: Screening. Asymptomatic. COMPARISON: Mammography: This study is compared with prior exams dating back to 2016. TECHNIQUE: Digital breast tomosynthesis is performed in both the craniocaudal and mediolateral oblique views along with computer-aided detection (CAD). Synthesized 2D images are generated from the tomosynthesis. FINDINGS: There are scattered areas of fibroglandular density (ACR BI-RADS breast composition Category b). There are no significant masses, abnormal calcifications, or other abnormalities. MM/MM tomosynthesis screening BI IMPRESSION: No mammographic evidence of malignancy. ASSESSMENT: BI-RADS BI-RADS 1 - Negative RECOMMENDATION: Routine annual mammography screening. 1 year F/U This examination should not preclude the clinical evaluation of a suspicious palpable abnormality. This patient's information was entered into a reminder system with a target due date for their next mammogram.
== END 2023-02-11 14:12 | disposition home or self-care (01) ==
LOC: HO.MAMMO 14:11
PROVIDERS: Visit Provider Internal Medicine
DX: Z12.31 Encounter for screening mammogram for malignant neoplasm of breast (principal)
CPT/HCPCS: 77063; 77067

== ENCOUNTER → 2023-02-11 14:15 | Outpatient (BNV) | payer OTHER, SELFPAY | PROVIDERS: Visit Provider Radiology Diagnostic Radiology | DX: Z12.31 Encounter for screening mammogram for malignant neoplasm of breast (principal) | CPT/HCPCS: 77063; 77067 ==

== ENCOUNTER 2023-02-15 09:53 | Outpatient (AMB) | payer OTHER, SELFPAY ==
[2023-02-15 09:58] VITALS: BP 110/66; PULSE 75; O2SAT 97; BMI 29.3
--- NOTE | 2023-02-15 09:58 | MHC.PC.OV ---
Vital Signs 02/15/23 09:58 Height 5 ft 7.5 in Weight 190 lb BMI 29.3 BP 110/66 Blood Pressure Location Lt brachial Position Sitting Pulse 75 Pulse Source Pulse Oximeter Pulse Oximetry (%) 97 Oxygen Delivery Method Room Air Intake Visit Reasons: Tick bite Intake Note: Pt is here today for a sick visit. Pt c/o tick bite on her R upper arm. Pt states that she has been having headaches. Allergies acetaminophen [Percocet] Allergy (Unknown, Verified 02/15/23 10:03) Rash iodine Allergy (Unknown, Verified 02/15/23 10:03) Wheezing, rash oxycodone [Percocet] Allergy (Unknown, Verified 02/15/23 10:03) Wheezing, rash azithromycin Allergy (Verified 02/15/23 10:03) rash Percodan Allergy (Unknown, Uncoded 02/15/23 10:03) wheezing and rash Medication List - Last Reconciled 02/15/23 by Francesca Magana MD aripiprazole 2 mg PO DAILY blood sugar diagnostic (Accu-Chek Guide test strips) As directed to test blood sugar once a day blood-glucose meter (Accu-Chek Guide Me Glucose Meter) As directed to test blood sugar once a day cholecalciferol (vitamin D3) 25 mcg PO DAILY docusate sodium 100 mg PO BEDTIME esomeprazole magnesium (Nexium) 40 mg PO DAILY gabapentin 300 mg PO BEDTIME hydrocortisone 2.5% (Proctosol HC) 1 appl [place] BID-QID PRN linaclotide (Linzess) 145 mcg PO DAILY lisinopril 10 mg PO BEDTIME loratadine 10 mg PO DAILY metformin 1,000 mg PO BID omega-3 fatty acids (Fish Oil) PO DAILY onabotulinumtoxinA (Botox) intradermal .every 12 weeks rimegepant (Nurtec ODT) 75 mg PO DAILY PRN rosuvastatin 20 mg PO BEDTIME sucralfate 10 mL PO BEDTIME topiramate 200 mg PO BEDTIME vortioxetine 40 mg (2 x 20 mg) PO DAILY Tobacco use date assessed: 02/15/23 Dental Screening Dental Screen Date: 02/15/23 Did you have a dental visit in the last 12 months?: Yes Did you have a dental problem in the last 6 months where you did not have access to dental care?: No Was dental information given to patient?: Patient has dentist HPI Tick bite HPI Details Pt found a imbedded for less than 48 hours tick on the right shoulder 2 days ago. Patient reports irritation at the site of tick bite otherwise no symptoms. Depression is improved on current medications. [facility] Medical History History of open sigmoidectomy (~04/15/04) Trigger thumb of right hand (~1963) Migraine headache Annual physical exam Anxiety and depression Microalbuminuria Abnormal colonoscopy Hyperlipemia DM type 2 (diabetes mellitus, type 2) Dysuria Adhesive capsulitis of shoulder History of trigger finger Surgical History History of esophagogastroduodenoscopy (EGD) Hx of colonoscopy History of ankle surgery H/O parathyroidectomy History of sinus surgery S/P tonsillectomy History of 2 sections Family History Father No problems noted. Mother No problems noted. Paternal Grandmother Colon cancer Other Mental health disorder Social History Housing: House Are you a primary dog day care attendant to a significant other at home: No Do you presently have visiting nurse or other home services: No Alcohol intake: current Alcohol intake frequency: a few times a month Patient Tobacco Use Status: Never used Tobacco e-Cigarette/Vaping Use: Never Used Current occupational status: retired Current occupation: retired-right handed Cognitive needs: No Hearing needs: No Vision needs: Yes Female Reproductive History Menstrual Age of Menarche: 11 Questionnaire Thrive Questionnaire Date Thrive assessed: 09/03/22 JEFF-7 AMB Questionnaire JEFF-7 Date JEFF - 7 assessed: 09/03/22 Source: Developed by Drs. Gee Keen, Prema Connolly, Sergio Vazquez and colleagues, with an educational hernan from [employer]. Review of Systems Const All systems reviewed & are unremarkable except as noted in HPI and below Reports no additional complaints Eyes Reports no additional complaints ENT Reports no additional complaints Card Reports no additional complaints Resp Reports no additional complaints GI Reports no additional complaints Reports no additional complaints Physical exam (Primary Care) Vital Signs: Last Vital Signs Pulse 75 02/15/23 09:58 BP 110/66 02/15/23 09:58 Pulse Ox 97 02/15/23 09:58 Oxygen Delivery Method Room Air 02/15/23 09:58 BMI result Body Mass Index 29.3 Tobacco/Smoking Status: Tobacco use Status Tobacco use date assessed 02/15/23 02/15/23 10:06 Patient Tobacco Use Status Never used Tobacco 02/15/23 10:06 e-Cigarette/Vaping Use Never Used 02/15/23 09:58 Thrive Assessment: Date of Thrive Assessment Date Thrive assessed 09/03/22 02/15/23 09:58 Const General: no acute distress HENMT Head: Yes normal to inspection Resp Effort & Inspection: normal respiratory effort Auscultation: clear to auscultation bilaterally Cardio Rhythm: regular rhythm Heart sounds: S1 normal heart sound present and S2 normal heart sound present Skin Other: T raised erythematous area about 1 cm with central scab on the right shoulder Assessment and Plan Assessment & Plan (1) Tick bite: Code(s): W57.XXXA - Bitten or stung by nonvenomous insect and other nonvenomous arthropods, initial encounter Plan: Treatment option discussed with the patient including watchful waiting for early Lyme disease symptoms or 2 week treatment with doxycycline. Patient decided to monitor her symptoms and call if develops an early symptoms of Lyme disease (2) Major depression, recurrent, full remission: Code(s): F33.42 - Major depressive disorder, recurrent, in full remission Plan: Continue current medications and follow-up with Psychiatry Medications: Changed From sucralfate 10 mL PO BEDTIME 1,242 mL 3RF K21.9 - Gastro-esophageal reflux disease without esophagitis To sucralfate 10 mL PO BEDTIME K21.9 - Gastro-esophageal reflux disease without esophagitis Coding Level of Care Code Est Pt Level 3 (71850) Diagnoses Tick bite W57.XXXA Major depression, recurrent, full remission F33.42
== END 2023-02-15 10:52 | disposition home or self-care (01) ==
PROVIDERS: PCP Internal Medicine; Visit Provider Internal Medicine
DX: T63.481A Toxic effect of venom of other arthropod, accidental (unintentional), initial encounter (principal); F33.42 Major depressive disorder, recurrent, in full remission
CPT/HCPCS: 99213

== ENCOUNTER 2023-03-01 09:14 | Outpatient (REF) | payer OTHER, SELFPAY ==
[2023-03-01 11:52] LABS: Alanine Aminotransferase 20 U/L (0-31); Albumin Level 4.2 g/dL (3.5-5.0); Alkaline Phosphatase 63 U/L (39-117); Anion Gap 9 (12-20); Aspartate Amino Transferase 14 U/L (5-31); Bilirubin Total 0.3 mg/dL (0.0-1.0); Blood Urea Nitrogen 16 mg/dL (9-16); Calcium 9.4 mg/dL (8.4-10.2); Carbon Dioxide 26 mmol/L (22-29); Chloride 111 mmol/L (96-108); Cholesterol 200 mg/dL (<200); Estimated Average Glucose 123 mg/dL; Estimated Glomerular Filt Rate > 60; Glucose Fasting 117 mg/dL (60-99); HDL Cholesterol 61 mg/dL (>40); Hemoglobin A1c % 5.9 % (<6.0); LDL Cholesterol Calculated 99 mg/dL (<100); Potassium 3.9 mmol/L (3.3-5.1); Sodium 142 mmol/L (135-145); Total Protein 6.5 g/dL (6.5-8.0); Triglycerides 202 mg/dL (<150)
[2023-03-01 12:22] LABS: Creatinine Urine 121.12 mg/dL; Microalbum/Creatinine Ratio Ur 19.8 ug/mg cr (<30)
== END 2023-03-01 09:15 | disposition home or self-care (01) ==
LOC: HO.HMGCLDS 09:14
PROVIDERS: PCP Internal Medicine; Visit Provider Internal Medicine
DX: Z00.00 Encounter for general adult medical examination without abnormal findings (principal); E78.5 Hyperlipidemia, unspecified; E11.9 Type 2 diabetes mellitus without complications; R80.9 Proteinuria, unspecified
CPT/HCPCS: 36415; 80053; 80061; 82043; 82570; 83036

== ENCOUNTER 2023-03-04 10:58 | Outpatient (AMB) | payer OTHER, SELFPAY ==
[2023-03-04 11:12] VITALS: BP 102/66; PULSE 87; O2SAT 97; BMI 29.5
--- NOTE | 2023-03-04 11:12 | A.OFFPC_ITS ---
Vital Signs 03/04/23 11:12 Height 5 ft 7.5 in Weight 191 lb BMI 29.5 BP 102/66 Blood Pressure Location Lt brachial Position Sitting Pulse 87 Pulse Source Pulse Oximeter Pulse Oximetry (%) 97 Oxygen Delivery Method Room Air Intake Visit Reasons: 6 month follow up Intake Note: Pt is here today for 6 months follow up visit on DM. Allergies acetaminophen [Percocet] Allergy (Unknown, Verified 03/04/23 11:13) Rash iodine Allergy (Unknown, Verified 03/04/23 11:13) Wheezing, rash oxycodone [Percocet] Allergy (Unknown, Verified 03/04/23 11:13) Wheezing, rash azithromycin Allergy (Verified 03/04/23 11:13) rash Percodan Allergy (Unknown, Uncoded 03/04/23 11:13) wheezing and rash Medication List - Last Reconciled 03/04/23 by Francesca Magana MD aripiprazole 2 mg PO DAILY blood sugar diagnostic (Accu-Chek Guide test strips) As directed to test blood sugar once a day blood-glucose meter (Accu-Chek Guide Me Glucose Meter) As directed to test blood sugar once a day cholecalciferol (vitamin D3) 25 mcg PO DAILY docusate sodium 100 mg PO BEDTIME esomeprazole magnesium (Nexium) 40 mg PO DAILY gabapentin 300 mg PO BEDTIME hydrocortisone 2.5% (Proctosol HC) 1 appl [place] BID-QID PRN linaclotide (Linzess) 145 mcg PO DAILY lisinopril 10 mg PO BEDTIME loratadine 10 mg PO DAILY metformin 1,000 mg PO BID omega-3 fatty acids (Fish Oil) PO DAILY onabotulinumtoxinA (Botox) intradermal .every 12 weeks rimegepant (Nurtec ODT) 75 mg PO DAILY PRN rosuvastatin 20 mg PO BEDTIME semaglutide (Ozempic) 0.25 mg (0.368 mL) subcut QWEEK sucralfate 10 mL PO BEDTIME topiramate 200 mg PO BEDTIME vortioxetine 40 mg (2 x 20 mg) PO DAILY Tobacco use date assessed: 03/04/23 HPI 6 month follow up HPI Details Patient presents for the follow-up of hypertension hyperlipidemia type 2 diabetes. She reports eating a lot of carbs including chocolate and potatoes and gained 16 lb since the last visit. Patient reports fasting blood glucose between 120-140. She exercised occasionally. Chronic depression is stable on current medications. [facility] Medical History History of open sigmoidectomy (~04/15/04) Trigger thumb of right hand (~1963) Migraine headache Annual physical exam Anxiety and depression Microalbuminuria Abnormal colonoscopy Hyperlipemia DM type 2 (diabetes mellitus, type 2) Dysuria Adhesive capsulitis of shoulder History of trigger finger Surgical History History of esophagogastroduodenoscopy (EGD) Hx of colonoscopy History of ankle surgery H/O parathyroidectomy History of sinus surgery S/P tonsillectomy History of 2 sections Family History Father No problems noted. Mother No problems noted. Paternal Grandmother Colon cancer Other Mental health disorder Social History Housing: House Are you a primary animal care giver to a significant other at home: No Do you presently have visiting nurse or other home services: No Alcohol intake: current Alcohol intake frequency: a few times a month Patient Tobacco Use Status: Never used Tobacco e-Cigarette/Vaping Use: Never Used Current occupational status: retired Current occupation: retired-right handed Cognitive needs: No Hearing needs: No Vision needs: Yes Female Reproductive History Menstrual Age of Menarche: 11 Questionnaire Thrive Questionnaire Date Thrive assessed: 09/03/22 JEFF-7 AMB Questionnaire JEFF-7 Date JEFF - 7 assessed: 09/03/22 Source: Developed by Drs. Gee Keen, Prema Connolly, Sergio Vazquez and colleagues, with an educational hernan from [employer] Review of Systems Const All systems reviewed & are unremarkable except as noted in HPI and below Reports no additional complaints Eyes Reports no additional complaints ENT Reports no additional complaints Card Reports no additional complaints Resp Reports no additional complaints GI Reports no additional complaints Reports no additional complaints Physical exam (Primary Care) Vital Signs: Last Vital Signs Pulse 87 03/04/23 11:12 BP 102/66 03/04/23 11:12 Pulse Ox 97 03/04/23 11:12 Oxygen Delivery Method Room Air 03/04/23 11:12 BMI result Body Mass Index 29.5 Tobacco/Smoking Status: Tobacco use Status Tobacco use date assessed 03/04/23 03/04/23 11:15 Patient Tobacco Use Status Never used Tobacco 03/04/23 11:15 e-Cigarette/Vaping Use Never Used 03/04/23 11:15 Thrive Assessment: Date of Thrive Assessment Date Thrive assessed 09/03/22 03/04/23 11:15 Const General: no acute distress HENMT Ears: hearing grossly normal bilaterally Resp Effort & Inspection: normal respiratory effort Auscultation: clear to auscultation bilaterally Cardio Rhythm: regular rhythm Heart sounds: S1 normal heart sound present and S2 normal heart sound present GI Inspection: Yes normal to inspection Palpation (GI): Soft to palpation Percussion: Yes normal to percussion Auscultation: normal bowel sounds Assessment and Plan Assessment & Plan (1) DM type 2 (diabetes mellitus, type 2): Code(s): E11.9 - Type 2 diabetes mellitus without complications Plan: A1c is up to 5.9 and patient gained 15 lb. ADA diet increase physical activity weight loss discussed with the patient. She will continue maximum dose of metformin and Ozempic 0.25 mg will be added for 3 months. Patient will be referred to dietitian (2) Hyperlipemia: Code(s): E78.5 - Hyperlipidemia, unspecified Plan: Continue statin, low-cholesterol diet discussed with the patient (3) Microalbuminuria: Comment: On lisinopril Code(s): R80.9 - Proteinuria, unspecified Plan: Continue lisinopril (4) Major depressive disorder, recurrent severe without psychotic features: Code(s): F33.2 - Major depressive disorder, recurrent severe without psychotic features Plan: Continue current medications and f/u with psychiatrist (5) Overweight: Code(s): E66.3 - Overweight Orders: Orders Comprehensive [place]. Panel Fast 3 Months E11.9 - Type 2 diabetes mellitus without complications, E66.3 - Overweight, E78.5 - Hyperlipidemia, unspecified Microalbumin, Random (w Creat) 3 Months E11.9 - Type 2 diabetes mellitus without complications, E66.3 - Overweight, E78.5 - Hyperlipidemia, unspecified Hemoglobin A1c 3 Months E11.9 - Type 2 diabetes mellitus without complications, E66.3 - Overweight, E78.5 - Hyperlipidemia, unspecified Complete Blood Count Auto Diff 3 Months E11.9 - Type 2 diabetes mellitus without complications, E66.3 - Overweight, E78.5 - Hyperlipidemia, unspecified Lipid Panel 3 Months E11.9 - Type 2 diabetes mellitus without complications, E66.3 - Overweight, E78.5 - Hyperlipidemia, unspecified Referrals Nutrition/Dietitian Referral E11.9 - Type 2 diabetes mellitus without complications, E78.5 - Hyperlipidemia, unspecified Medications: New semaglutide (Ozempic) for 4 weeks 0.25 mg (0.368 mL) subcut QWEEK 9 mL 1RF Coding Level of Care Code Est Pt Level 4 (76007) Diagnoses DM type 2 (diabetes mellitus, type 2) E11.9 Hyperlipemia E78.5 Microalbuminuria R80.9 Major depressive disorder, recurrent severe without psychotic features F33.2 Overweight E66.3
== END 2023-03-04 12:12 | disposition home or self-care (01) ==
PROVIDERS: Visit Provider Internal Medicine
DX: E11.9 Type 2 diabetes mellitus without complications (principal); E78.5 Hyperlipidemia, unspecified; R80.9 Proteinuria, unspecified; F33.2 Major depressive disorder, recurrent severe without psychotic features; E66.3 Overweight
CPT/HCPCS: 99214

== ENCOUNTER 2023-03-12 14:30 | Outpatient (AMB) | payer OTHER, SELFPAY ==
[2023-03-12 14:45] VITALS: BMI 29.7
--- NOTE | 2023-03-12 14:45 | A.OFFVIS_ITS ---
Intake VS Expanded 03/12/23 14:45 03/12/23 14:52 Height 5 ft 7.5 in 5 ft 7.5 in Weight 192 lb 3.889 oz 192 lb BMI 29.7 29.6 Intake Visit Reasons: [id number] Allergies acetaminophen [Percocet] Allergy (Unknown, Verified 03/25/23 09:15) Rash iodine Allergy (Unknown, Verified 03/25/23 09:15) Wheezing, rash oxycodone [Percocet] Allergy (Unknown, Verified 03/25/23 09:15) Wheezing, rash azithromycin Allergy (Verified 03/25/23 09:15) rash Percodan Allergy (Unknown, Uncoded 03/04/23 11:13) wheezing and rash HPI Nutrition Presentation Details Pt presents for MNT for T2DM and hyperlipidemia. The Pt was referred by Dr.J. Magana Pt reports having IBS and following low fodmap food choices, Pt did not do food elimination diet but rather choosing low fodmap food choices. Pt reports doing well in regards to IBS while choosing low fodmap choices Pt reports meals vary however most meals are from restaurants. Typical meal intake B: tea with 1/2 and 1/2 or whole milk L baked potato with cottage cheese and butter or multigrain cheerios or salad D dinner Nep[place]e foods (rice/or lomein, breaded shrimp physical activity: daily life activities CEE-Fybqwvn-Ax.Jeor Equation Height 5 ft 7.5 in Weight 192 lb Resting Metabolic Rate 1490.31 Calculated Activity Level Sedentary Calories Needed to Maintain Weight 1788.37 Diagnosis Nutrition problem #1 food nutri know defi As related to (etiology) #1 diagnosis As evidenced by (sign/symptom) #1 knowledge deficit of diet Most Recent Diabetes Results: Microalb/Creat Ratio 19.8 ug/mg cr (<30) 03/01/23 Cholesterol 200 mg/dL (<200) H 03/01/23 HDL Cholesterol 61 mg/dL (>40) 03/01/23 Triglycerides 202 mg/dL (<150) H 03/01/23 Creatinine 0.78 mg/dL (0.5-1.4) 03/01/23 Blood Urea Nitrogen 16 mg/dL (9-16) 03/01/23 Sodium 142 mmol/L (135-145) 03/01/23 Potassium 3.9 mmol/L (3.3-5.1) 03/01/23 Chloride 111 mmol/L (96-108) H 03/01/23 Carbon Dioxide 26 mmol/L (22-29) 03/01/23 Calcium 9.4 mg/dL (8.4-10.2) 03/01/23 AST 14 U/L (5-31) 03/01/23 ALT 20 U/L (0-31) 03/01/23 Total Protein 6.5 g/dL (6.5-8.0) 03/01/23 Albumin 4.2 g/dL (3.5-5.0) 03/01/23 [facility] Medical History History of open sigmoidectomy (~04/15/04) Trigger thumb of right hand (~1963) Migraine headache Annual physical exam Anxiety and depression Microalbuminuria Abnormal colonoscopy Hyperlipemia DM type 2 (diabetes mellitus, type 2) Dysuria Adhesive capsulitis of shoulder History of trigger finger Surgical History History of esophagogastroduodenoscopy (EGD) Hx of colonoscopy History of ankle surgery H/O parathyroidectomy History of sinus surgery S/P tonsillectomy History of 2 sections Family History Father No problems noted. Mother No problems noted. Paternal Grandmother Colon cancer Other Mental health disorder Social History Housing: House Are you a primary chiropractic care to a significant other at home: No Do you presently have visiting nurse or other home services: No Alcohol intake: current Alcohol intake frequency: a few times a month Patient Tobacco Use Status: Never used Tobacco e-Cigarette/Vaping Use: Never Used Current occupational status: retired Current occupation: retired-right handed Cognitive needs: No Hearing needs: No Vision needs: Yes Female Reproductive History Menstrual Age of Menarche: 11 Assessment & Plan Assessment & Plan (1) DM type 2 (diabetes mellitus, type 2): Code(s): E11.9 - Type 2 diabetes mellitus without complications Plan: wt: 87 kg Est kcal needs as per MSJ: 1800 (40% carb, 30% protein/fat) Est fluid needs as per -30 ml/d: 2600 Est prot per day as per 1 g/kg bw: 87 Recommend fiber intake : 8-10 g per day and gradually increase to 25-28 g per day for women and 35-38 g for men or as tolerated Recommend sodium intake per day : less than 2000 mg Educated patient on: ( R = reviewed V = verbalizes understanding N/R = needs review N/A = not applicable * Food sources of carbohydrate, adequate serving sizes and its role in various health conditions: R * Differences between complex carbohydrates a simple carbohydrates, role of fiber in diet: NR * Differences between types of fats and role in diet (mono on saturated fat fatty acids, saturated fatty acids, trans fats): R basic * Food sources of sodium in salt and healthy modifications for heart health in kidney health: NR * Vitamins and minerals: NR * Healthy plate method concept: R * Physical activity: Benefits a precaution: NR * Hypoglycemia protocol (rule of 15): NR * Dietary prevention of Hyperglycemia: NR Patient Instructions: have 3 balanced meals per day , reduce total carbohydrate at meals to 60 g carb reduce carbs at snack to 0-20 g , limit to 2 snacks per day see meal ideas as reference Coding Level of Care Code Nutr Indiv Intake (95357) Diagnoses DM type 2 (diabetes mellitus, type 2) E11.9 Time Spent (min) 30
[2023-03-26 12:53] VITALS: BMI 29.6
== END 2023-03-12 15:16 | disposition home or self-care (01) ==
PROVIDERS: PCP Internal Medicine; Visit Provider Dietitian, Registered
DX: E11.9 Type 2 diabetes mellitus without complications (principal)

== ENCOUNTER → 2023-03-12 14:30 | Outpatient (BNVA) | payer OTHER, SELFPAY | PROVIDERS: PCP Internal Medicine; Visit Provider Dietitian, Registered | DX: E11.9 Type 2 diabetes mellitus without complications (principal); E78.5 Hyperlipidemia, unspecified; Z71.3 Dietary counseling and surveillance | CPT/HCPCS: 97802 ==

== ENCOUNTER 2023-03-25 08:59 | Outpatient (AMB) | payer OTHER, SELFPAY ==
[2023-03-25 09:12] VITALS: BP 104/61; PULSE 73
--- NOTE | 2023-03-25 09:12 | A.OFFVIS_ITS ---
Intake Vital Signs 03/25/23 09:12 Height 5 ft 7.5 in Weight 194 lb 7.163 oz BMI 30.0 BP 104/61 Blood Pressure Location Lt brachial Position Sitting Pulse 73 Intake Visit Reasons: 2 month follow up GERD / IBS Intake Note: Patient returns to in office visit today in 2 months follow up of GERD, IBS. CC: Patient reports everything is well, and states that Linzess has been helping with BMs. She also reports GERD is well managed with medications. [employer] Required: No Accompanied by: Self / Same As Patient Allergies acetaminophen [Percocet] Allergy (Unknown, Verified 03/25/23 09:15) Rash iodine Allergy (Unknown, Verified 03/25/23 09:15) Wheezing, rash oxycodone [Percocet] Allergy (Unknown, Verified 03/25/23 09:15) Wheezing, rash azithromycin Allergy (Verified 03/25/23 09:15) rash Percodan Allergy (Unknown, Uncoded 03/04/23 11:13) wheezing and rash HPI 2 month follow up GERD / IBS HPI Details LAST VISIT Abdominal pain Constipation IBS (irritable bowel syndrome) GERD (gastroesophageal reflux disease) Plan Will change lansoprazole to Nexium. Patient will call our office in 2 weeks if she will continue to have acid reflux. Discussed with patient avoiding dietary triggers in late night snacking. Patient will try Linzess. Recommended to tried 1st thing in the morning on empty stomach. Patient was encouraged to drink plenty fluids throughout the day. Increase activity to promote better bowel motility. Continue low FODMAP diet. I will see patient in 2 months, sooner on as needed basis. Patient is agreeable to this plan and verbalizes understanding of instructions. She was given the opportunity to ask questions all questions answered. ? Thank you for allowing me to participate in her care Medications New esomeprazole magnesium (Nexium) 40 mg PO DAILY 30 caps 2RF K21.9 linaclotide (Linzess) 145 mcg PO DAILY 30 caps 2RF Discontinued methylprednisolone Take 1 tablet 12 hours before IV contrast and 1 tablet 2 hours before IV contrast Discontinued Reason: Patient no longer taking 32 mg PO BID 1 day 2 tabs 0RF lansoprazole Discontinued Reason: Doctor's Order 30 mg PO DAILY 90 caps 3RF K21.9 TODAY'S VISIT: Patient is here today for follow-up. Patient reports that she has been feeling better now that she is taking Nexium. Patient also change her diet, following low FODMAP diet and states that her symptoms got much better. Patient is also taking Linzess now he only uses Linzess if there is no bowel movement in 1-2 days. Patient reports that she is moving her bowels better. Denies any melena, hematochezia, unintentional weight loss or ribbon like stools. Patient denies dyspepsia, dysphagia or odynophagia. [facility] Medical History History of open sigmoidectomy (~04/15/04) Trigger thumb of right hand (~1963) Migraine headache Annual physical exam Anxiety and depression Microalbuminuria Abnormal colonoscopy Hyperlipemia DM type 2 (diabetes mellitus, type 2) Dysuria Adhesive capsulitis of shoulder History of trigger finger Surgical History History of esophagogastroduodenoscopy (EGD) Hx of colonoscopy History of ankle surgery H/O parathyroidectomy History of sinus surgery S/P tonsillectomy History of 2 sections Family History Father No problems noted. Mother No problems noted. Paternal Grandmother Colon cancer Other Mental health disorder Social History Housing: House Are you a primary primary care nurse to a significant other at home: No Do you presently have visiting nurse or other home services: No Alcohol intake: current Alcohol intake frequency: a few times a month Patient Tobacco Use Status: Never used Tobacco e-Cigarette/Vaping Use: Never Used Current occupational status: retired Current occupation: retired-right handed Cognitive needs: No Hearing needs: No Vision needs: Yes Female Reproductive History Menstrual Age of Menarche: 11 Review of Systems Const Denies weight gain and Denies weight loss ENT Reports no additional complaints, Denies dysphagia and Denies odynophagia Card Reports no additional complaints Resp Reports no additional complaints GI Denies abdominal pain, Denies belching, Denies melena, Denies bloating, Denies change in bowel habits, Denies dysphagia, Denies excessive flatus, Denies dyspepsia, Denies heartburn, Denies diarrhea, Denies loose stools, Denies nausea, Denies odynophagia and Denies vomiting Reports no additional complaints Musc Reports no additional complaints Neuro Reports no additional complaints Psych Reports no additional complaints Endo Reports no additional complaints Physical Exam Vital Signs: Last Vital Signs Pulse 73 03/25/23 09:12 BP 104/61 03/25/23 09:12 BMI result Body Mass Index 30.0 Const General: healthy appearing, no acute distress and well developed Nutritional Appearance: obese Orientation/consciousness: patient oriented x3 HEENT Head: Yes normal to inspection, Yes normocephalic and Yes atraumatic Face and sinus: Yes normal facial exam Mouth: Normal oral and palatal mucosa present Throat: Yes posterior oropharynx normal, Yes tonsils normal and Yes uvula midline Eyes General: appearance normal, both eyes and all related structures Neck Neck: Yes normal visual inspection, Yes full ROM and Yes trachea midline Thyroid: Thyroid normal Resp Effort & Inspection: normal respiratory effort, able to speak in complete sentences, no tracheal deviation and symmetric chest movement Auscultation: clear to auscultation bilaterally Cardio Rate: regular rate GI Inspection: Yes normal to inspection, No distended and Yes obesity Palpation (GI): Soft to palpation, not firm, nontender and No hepatosplenomegaly present Auscultation: normal bowel sounds General: Yes no CVA tenderness Back/Spine/Pelvis Back: no CVA tenderness Skin General skin exam: elasticity normal, turgor normal and dry skin Neuro General: patient oriented x3 Psych Appearance: grossly normal Mental Status: mental status grossly normal Affect: normal affect Assessment & Plan Assessment & Plan (1) Abdominal pain: Code(s): R10.9 - Unspecified abdominal pain Qualifiers: Abdominal location: right lower quadrant Qualified Code(s): R10.31 - Right lower quadrant pain (2) Constipation: Code(s): K59.00 - Constipation, unspecified Qualifiers: Constipation type: slow transit constipation Qualified Code(s): K59.01 - Slow transit constipation (3) IBS (irritable bowel syndrome): Code(s): K58.9 - Irritable bowel syndrome without diarrhea Qualifiers: Irritable bowel syndrome type: without diarrhea Qualified Code(s): K58.9 - Irritable bowel syndrome without diarrhea (4) GERD (gastroesophageal reflux disease): Code(s): K21.9 - Gastro-esophageal reflux disease without esophagitis Qualifiers: Esophagitis presence: esophagitis presence not specified Qualified Code(s): K21.9 - Gastro-esophageal reflux disease without esophagitis Plan Continue taking Nexium in the morning half an hour before breakfast. Patient was encouraged to avoid dietary triggers and late night snacking. Staying upright for minimum he 3 hours after meals discussed with patient. Patient can continue sucralfate at bedtime. Continue low FODMAP diet. Patient can continue on Linzess. Encouraged patient to increase fluid intake and activity to promote better bowel motility. I will se patient in 6 months, sooner on as n eeded basis. Patient is agreeable to this plan and verbalizes understanding of instructions. She was given the opportunity to ask questions and all questions answered. Thank you for allowing me to participate in her care Coding Level of Care Code Est Pt Level 3 (43981) Diagnoses Right lower quadrant abdominal pain R10.31 Abdominal location: right lower quadrant Slow transit constipation K59.01 Constipation type: slow transit constipation Irritable bowel syndrome without diarrhea K58.9 Irritable bowel syndrome type: without diarrhea Gastroesophageal reflux disease, unspecified whether esophagitis present K21.9 Esophagitis presence: esophagitis presence not specified Time Spent (min) 30 Comment 20 minutes spent with patient and additional 10 minutes spent reviewing her r ecords
== END 2023-03-25 09:34 | disposition home or self-care (01) ==
PROVIDERS: PCP Internal Medicine; Visit Provider Nurse Practitioner Family
DX: R10.31 Right lower quadrant pain (principal); K59.01 Slow transit constipation; K58.9 Irritable bowel syndrome, unspecified; K21.9 Gastro-esophageal reflux disease without esophagitis
CPT/HCPCS: 99213

== ENCOUNTER → 2023-03-25 08:59 | Outpatient (BNVA) | payer OTHER, SELFPAY | PROVIDERS: PCP Internal Medicine; Visit Provider Nurse Practitioner Family | DX: K59.01 Slow transit constipation (principal); K58.9 Irritable bowel syndrome, unspecified; K21.9 Gastro-esophageal reflux disease without esophagitis; R10.31 Right lower quadrant pain | CPT/HCPCS: 99212 ==

== ENCOUNTER 2023-05-31 09:24 | Outpatient (REF) | payer OTHER, SELFPAY ==
[2023-05-31 11:15] LABS: MANUAL DIFF FLAG NO
[2023-05-31 11:38] LABS: Estimated Average Glucose 111 mg/dL; Hemoglobin A1C 129.7299 umol/L; Hemoglobin A1c % 5.5 % (<6.0)
[2023-05-31 12:16] LABS: Basophils Absolute Auto 0.1 X10*3/uL (0.0-0.2); Basophils Percent Auto 0.8 % (0-2); Eosinophils Absolute Auto 0.1 X10*3/uL (0.0-0.4); Hematocrit 42.4 % (37.0-47.0); Hemoglobin 14.1 g/dl (12.0-16.0); Imm Gran Abs Auto 0.01 X10*3/uL (0.00-0.03); Imm Gran Pct Auto 0.2 % (0.0-0.4); Lymphocytes Absolute Auto 1.9 X10*3/uL (1.2-4.9); Lymphocytes Percent Auto 29.2 % (20-40); Mean Corpuscular HGB Conc 33.3 g/dl (31.0-35.0); Mean Corpuscular Hemoglobin 30.7 pg (27.0-33.0); Mean Corpuscular Volume 92.2 fL (80.0-98.0); Mean Platelet Volume 10.2 fL (9.4-12.3); Monocytes Absolute Auto 0.4 X10*3/uL (0.1-1.2); Monocytes Percent Auto 6.7 % (2-11); Neutrophils Percent Auto 61.1 % (45-73); Platelet Count 287 X10*3/uL (160-400); Red Cell Distribution Width 13.2 % (11.0-16.0); White Blood Count 6.6 X10*3/uL (4.8-10.8)
[2023-05-31 12:24] LABS: Creatinine Urine 162.62 mg/dL; Microalbum/Creatinine Ratio Ur 25.8 ug/mg cr (<30)
[2023-05-31 12:32] LABS: Alanine Aminotransferase 18 U/L (0-31); Albumin Level 4.4 g/dL (3.5-5.0); Alkaline Phosphatase 57 U/L (39-117); Anion Gap 13 (12-20); Aspartate Amino Transferase 13 U/L (5-31); Bilirubin Total 0.5 mg/dL (0.0-1.0); Blood Urea Nitrogen 15 mg/dL (9-16); Calcium 10.1 mg/dL (8.4-10.2); Carbon Dioxide 25 mmol/L (22-29); Chloride 107 mmol/L (96-108); Cholesterol 138 mg/dL (<200); Estimated Glomerular Filt Rate > 60; Glucose Fasting 102 mg/dL (60-99); HDL Cholesterol 54 mg/dL (>40); LDL Cholesterol Calculated 52 mg/dL (<100); Sodium 141 mmol/L (135-145); Total Protein 6.6 g/dL (6.5-8.0); Triglycerides 161 mg/dL (<150)
== END 2023-05-31 09:25 | disposition home or self-care (01) ==
LOC: HO.HMGCLDS 09:24
PROVIDERS: PCP Internal Medicine; Visit Provider Internal Medicine
DX: E11.9 Type 2 diabetes mellitus without complications (principal); E78.5 Hyperlipidemia, unspecified; E66.3 Overweight
CPT/HCPCS: 36415; 80053; 80061; 82043; 82570; 83036; 85025

== ENCOUNTER 2023-06-04 11:15 | Outpatient (AMB) | payer OTHER, SELFPAY ==
[2023-06-04 11:27] VITALS: BP 94/60; PULSE 95; O2SAT 97; BMI 28.1
--- NOTE | 2023-06-04 11:27 | A.OFFPC_ITS ---
Vital Signs 06/04/23 11:27 Height 5 ft 7.5 in Weight 182 lb BMI 28.1 BP 94/60 Blood Pressure Location Lt brachial Position Sitting Pulse 95 Pulse Source Pulse Oximeter Pulse Oximetry (%) 97 Oxygen Delivery Method Room Air Intake Visit Reasons: 3 Month follow up Intake Note: Pt is here today for 3 months follow up visit. Allergies acetaminophen [Percocet] Allergy (Unknown, Verified 06/04/23 11:52) Rash iodine Allergy (Unknown, Verified 06/04/23 11:52) Wheezing, rash oxycodone [Percocet] Allergy (Unknown, Verified 06/04/23 11:52) Wheezing, rash azithromycin Allergy (Verified 06/04/23 11:52) rash Percodan Allergy (Unknown, Uncoded 06/04/23 11:52) wheezing and rash Medication List - Last Reconciled 06/04/23 by Francesca Magana MD aripiprazole 2 mg PO DAILY blood sugar diagnostic (Accu-Chek Guide test strips) As directed to test blood sugar once a day blood-glucose meter (Accu-Chek Guide Me Glucose Meter) As directed to test blood sugar once a day bupropion HCl 150 mg PO QAM cholecalciferol (vitamin D3) 25 mcg PO DAILY docusate sodium 100 mg PO BEDTIME esomeprazole magnesium 40 mg PO DAILY gabapentin 300 mg PO BEDTIME hydrocortisone 2.5% (Proctosol HC) 1 appl MA BID-QID PRN linaclotide (Linzess) 145 mcg PO DAILY lisinopril 5 mg PO DAILY loratadine 10 mg PO DAILY metformin 1,000 mg PO BID omega-3 fatty acids (Fish Oil) PO DAILY onabotulinumtoxinA (Botox) intradermal .every 12 weeks rimegepant (Nurtec ODT) 75 mg PO DAILY PRN rosuvastatin 20 mg PO BEDTIME semaglutide (Ozempic) 0.25 mg (0.368 mL) subcut QWEEK sucralfate 10 mL PO BEDTIME topiramate 200 mg PO BEDTIME vortioxetine 40 mg (2 x 20 mg) PO DAILY Tobacco use date assessed: 06/04/23 Dental Screening Dental Screen Date: 06/04/23 Did you have a dental visit in the last 12 months?: Yes Did you have a dental problem in the last 6 months where you did not have access to dental care?: No Was dental information given to patient?: Patient has dentist HPI 3 Month follow up HPI Details Pt presents for f/u DM 2, hyperlipid, HTN, stable on meds. Patient lost 12 lb on Ozempic and reports improved blood glucose readings between 80-100 in the morning. She reports intermittent lightheadedness when standing up from sitting position and blood pressure readings low in 90/60. [facility] Medical History (Updated 06/04/23 @ 15:11 by Francesca Magana MD) History of open sigmoidectomy (~04/15/04) Trigger thumb of right hand (~1963) Migraine headache Annual physical exam Anxiety and depression Microalbuminuria Abnormal colonoscopy Hyperlipemia DM type 2 (diabetes mellitus, type 2) Dysuria Adhesive capsulitis of shoulder History of trigger finger Surgical History History of esophagogastroduodenoscopy (EGD) Hx of colonoscopy History of ankle surgery H/O parathyroidectomy History of sinus surgery S/P tonsillectomy History of 2 sections Family History Father No problems noted. Mother No problems noted. Paternal Grandmother Colon cancer Other Mental health disorder Social History Housing: House Are you a primary day care home mother to a significant other at home: No Do you presently have visiting nurse or other home services: No Alcohol intake: current Alcohol intake frequency: a few times a month Patient Tobacco Use Status: Never used Tobacco e-Cigarette/Vaping Use: Never Used Current occupational status: retired Current occupation: retired-right handed Cognitive needs: No Hearing needs: No Vision needs: Yes Female Reproductive History Menstrual Age of Menarche: 11 Questionnaire PHQ-9 Over the last 2 weeks, how often have you been bothered by any of the following problems? [id number] - PHQ-9 Billing: Patient declined-do not bill Source: Developed by Drs. Gee Keen, Prema Connolly, Sergio Vazquez and colleagues, with an educational hernan from [employer] Thrive Questionnaire Date Thrive assessed: 06/04/23 I am a: Patient What is your living situation today?: I choose not to answer this question Within the past 12 months, did the food you bought not last and you didn't have the money to get more?: I choose not to answer this question Within the past 12 months, did you worry whether your food would run out before you got money to buy more?: I choose not to answer this question Do you have trouble paying for medicines?: I choose not to answer this question Do you have trouble getting transportation to medical appointments?: I choose not to answer this question Do you have trouble paying your heating and electricity bill?: I choose not to answer this question Do you have trouble taking care of your child, family member or friend?: I choose not to answer this question Do you have trouble with day-to-day activities such as bathing, preparing meals, shopping, managing finances, etc.?: I choose not to answer this question Are you currently unemployed and looking for a job?: I choose not to answer this question Are you interested in more education?: I choose not to answer this question Currently or been in a relationship where the following occur: I choose not to answer this question THRIVE Score: 0 AUDIT C Alcohol Use Questionnaire (AUDIT-C) 1. How often do you have a drink containing alcohol?: Monthly or less 2. How many drinks containing alcohol do you have on a typical day when you are drinking?: 1 or 2 3. How often do you have six or more drinks on one occasion?: Never Total Score: 1 JEFF-7 AMB Questionnaire JEFF-7 Date JEFF - 7 assessed: 06/04/23 Source: Developed by Drs. Gee Keen, Prema Connolly, Sergio Vazquez and colleagues, with an educational hernan from [employer] JEFF-7 Assessment Billing JEFF-7 Assessment Tool: pt declined-do not bill Review of Systems Const All systems reviewed & are unremarkable except as noted in HPI and below Reports no additional complaints Eyes Reports no additional complaints ENT Reports no additional complaints Card Reports no additional complaints Resp Reports no additional complaints GI Reports no additional complaints Reports no additional complaints Physical exam (Primary Care) Vital Signs: Last Vital Signs Pulse 95 06/04/23 11:27 BP 94/60 06/04/23 11:27 Pulse Ox 97 06/04/23 11:27 Oxygen Delivery Method Room Air 06/04/23 11:27 BMI result Body Mass Index 28.1 Tobacco/Smoking Status: Tobacco use Status Tobacco use date assessed 06/04/23 06/04/23 11:54 Patient Tobacco Use Status Never used Tobacco 06/04/23 11:54 e-Cigarette/Vaping Use Never Used 06/04/23 11:27 Thrive Assessment: Date of Thrive Assessment Date Thrive assessed 09/03/22 06/04/23 11:27 Currently or been in a relationship where the following occur: I choose not to answer this question Const General: no acute distress HENMT Head: Yes normal to inspection Mouth: Normal oral and palatal mucosa present Eyes General: appearance normal, both eyes and all related structures Neck Neck: Yes no lymphadenopathy and Yes supple Resp Effort & Inspection: normal respiratory effort Auscultation: clear to auscultation bilaterally Cardio Rhythm: regular rhythm Heart sounds: S1 normal heart sound present and S2 normal heart sound present GI Inspection: Yes normal to inspection Palpation (GI): Soft to palpation Percussion: Yes normal to percussion Auscultation: normal bowel sounds Assessment and Plan Assessment & Plan (1) Hyperlipemia: Code(s): E78.5 - Hyperlipidemia, unspecified Plan: Continue statin (2) DM type 2 (diabetes mellitus, type 2): Code(s): E11.9 - Type 2 diabetes mellitus without complications Plan: A1c is 5.5, ADA diet regular physical activity weight loss discussed with the patient metformin will be decreased to 1000 mg daily and patient will continue Ozempic. Follow-up in 3 months with a fasting labs before (3) Microalbuminuria: Comment: On lisinopril Code(s): R80.9 - Proteinuria, unspecified Plan: Blood pressure is low and lisinopril will be decreased to 5 mg a day Orders: Orders Complete Blood Count Auto Diff 3 Months E11.9 - Type 2 diabetes mellitus without complications, E78.5 - Hyperlipidemia, unspecified, R80.9 - Proteinuria, unspecified Hemoglobin A1c 3 Months E11.9 - Type 2 diabetes mellitus without complications, E78.5 - Hyperlipidemia, unspecified, R80.9 - Proteinuria, unspecified Lipid Panel 3 Months E11.9 - Type 2 diabetes mellitus without complications, E78.5 - Hyperlipidemia, unspecified, R80.9 - Proteinuria, unspecified Comprehensive [place]. Panel Fast 3 Months E11.9 - Type 2 diabetes mellitus without complications, E78.5 - Hyperlipidemia, unspecified, R80.9 - Proteinuria, unspecified Microalbumin, Random (w Creat) 3 Months E11.9 - Type 2 diabetes mellitus without complications, E78.5 - Hyperlipidemia, unspecified, R80.9 - Proteinuria, unspecified Medications: New lisinopril 5 mg PO DAILY 90 tabs 0RF Discontinued lisinopril Discontinued Reason: Doctor's Order 10 mg PO BEDTIME 90 tabs 3RF Coding Level of Care Code Est Pt Level 4 (20523) Diagnoses Hyperlipemia E78.5 DM type 2 (diabetes mellitus, type 2) E11.9 Microalbuminuria R80.9
== END 2023-06-04 15:17 | disposition home or self-care (01) ==
PROVIDERS: PCP Internal Medicine; Visit Provider Internal Medicine
DX: E78.5 Hyperlipidemia, unspecified (principal); E11.9 Type 2 diabetes mellitus without complications; R80.9 Proteinuria, unspecified
CPT/HCPCS: 99214

== ENCOUNTER → 2023-07-08 14:00 | Outpatient (BNV) | payer OTHER, SELFPAY | PROVIDERS: Visit Provider Psychiatry & Neurology Psychiatry | DX: F33.2 Major depressive disorder, recurrent severe without psychotic features (principal) | CPT/HCPCS: 90867; 90868 ==

== ENCOUNTER → 2023-07-15 14:00 | Outpatient (BNV) | payer OTHER, SELFPAY | PROVIDERS: Visit Provider Psychiatry & Neurology Psychiatry | DX: F33.2 Major depressive disorder, recurrent severe without psychotic features (principal) | CPT/HCPCS: 90868 ==

== ENCOUNTER 2023-09-02 08:37 | Outpatient (REF) | payer OTHER, SELFPAY ==
[2023-09-02 10:25] LABS: MANUAL DIFF FLAG NO
[2023-09-02 10:36] LABS: Basophils Absolute Auto 0.1 X10*3/uL (0.0-0.2); Basophils Percent Auto 0.8 % (0-2); Eosinophils Absolute Auto 0.1 X10*3/uL (0.0-0.4); Eosinophils Percent Auto 1.9 % (0-4); Hematocrit 39.7 % (37.0-47.0); Hemoglobin 13.1 g/dl (12.0-16.0); Imm Gran Abs Auto 0.02 X10*3/uL (0.00-0.03); Imm Gran Pct Auto 0.3 % (0.0-0.4); Lymphocytes Absolute Auto 1.9 X10*3/uL (1.2-4.9); Mean Corpuscular Volume 93.9 fL (80.0-98.0); Mean Platelet Volume 9.9 fL (9.4-12.3); Monocytes Absolute Auto 0.5 X10*3/uL (0.1-1.2); Monocytes Percent Auto 7.6 % (2-11); Neutrophils Absolute Auto 3.7 x10*3/uL (2.0-8.3); Neutrophils Percent Auto 59.4 % (45-73); Platelet Count 242 X10*3/uL (160-400); Red Blood Count 4.23 X10*6/uL (4.20-5.50); Red Cell Distribution Width 12.7 % (11.0-16.0); White Blood Count 6.3 X10*3/uL (4.8-10.8)
[2023-09-02 10:48] LABS: Estimated Average Glucose 120 mg/dL; Hemoglobin A1c % 5.8 % (<6.0)
[2023-09-02 10:52] LABS: Alanine Aminotransferase 12 U/L (0-31); Albumin Level 4.2 g/dL (3.5-5.0); Alkaline Phosphatase 56 U/L (39-117); Anion Gap 14 (12-20); Aspartate Amino Transferase 14 U/L (5-31); Bilirubin Total 0.4 mg/dL (0.0-1.0); Blood Urea Nitrogen 11 mg/dL (9-16); Calcium 10.1 mg/dL (8.4-10.2); Carbon Dioxide 22 mmol/L (22-29); Chloride 108 mmol/L (96-108); Cholesterol 150 mg/dL (<200); Estimated Glomerular Filt Rate > 60; Glucose Fasting 102 mg/dL (60-99); HDL Cholesterol 53 mg/dL (>40); LDL Cholesterol Calculated 55 mg/dL (<100); Potassium 3.8 mmol/L (3.3-5.1); Sodium 140 mmol/L (135-145); Total Protein 6.4 g/dL (6.5-8.0); Triglycerides 212 mg/dL (<150)
[2023-09-02 11:01] LABS: Creatinine Urine 80.47 mg/dL; Microalbum/Creatinine Ratio Ur 14.9 ug/mg cr (<30)
== END 2023-09-02 08:38 | disposition home or self-care (01) ==
LOC: HO.HMGCLDS 08:37
PROVIDERS: PCP Internal Medicine; Visit Provider Internal Medicine
DX: E78.5 Hyperlipidemia, unspecified (principal); E11.9 Type 2 diabetes mellitus without complications; R80.9 Proteinuria, unspecified
CPT/HCPCS: 36415; 80053; 80061; 82043; 82570; 83036; 85025

== ENCOUNTER 2023-09-05 10:12 | Outpatient (AMB) | payer OTHER, SELFPAY ==
[2023-09-05 10:17] VITALS: BP 96/60; PULSE 86; O2SAT 96; BMI 27.9
--- NOTE | 2023-09-05 10:17 | MHC.PC.OV ---
Vital Signs 09/05/23 10:17 Height 5 ft 7.5 in Weight 181 lb BMI 27.9 BP 96/60 Blood Pressure Location Rt brachial Position Sitting Pulse 86 Pulse Source Pulse Oximeter Pulse Oximetry (%) 96 Oxygen Delivery Method Room Air Intake Visit Reasons: Annual PE Intake Note: Pt is here today for PE. Allergies acetaminophen [Percocet] Allergy (Unknown, Verified 09/05/23 10:22) Rash iodine Allergy (Unknown, Verified 09/05/23 10:22) Wheezing, rash oxycodone [Percocet] Allergy (Unknown, Verified 09/05/23 10:22) Wheezing, rash azithromycin Allergy (Verified 09/05/23 10:22) rash Percodan Allergy (Unknown, Uncoded 09/05/23 10:22) wheezing and rash Medication List - Last Reconciled 09/05/23 by Francesca Magana MD aripiprazole 2 mg PO DAILY blood sugar diagnostic (Accu-Chek Guide test strips) As directed to test blood sugar once a day blood-glucose meter (Accu-Chek Guide Me Glucose Meter) As directed to test blood sugar once a day bupropion HCl XL 150 mg PO QAM cholecalciferol (vitamin D3) 25 mcg PO DAILY docusate sodium 100 mg PO BEDTIME esomeprazole magnesium 40 mg PO DAILY gabapentin 300 mg PO BEDTIME hydrocortisone 2.5% (Proctosol HC) 1 appl [place] BID-QID PRN linaclotide (Linzess) 145 mcg PO DAILY lisinopril 5 mg PO DAILY loratadine 10 mg PO DAILY metformin 1,000 mg PO BID omega-3 fatty acids (Fish Oil) PO DAILY onabotulinumtoxinA (Botox) intradermal .every 12 weeks rimegepant (Nurtec ODT) 75 mg PO DAILY PRN rosuvastatin 20 mg PO BEDTIME semaglutide (Ozempic) 0.25 mg (0.368 mL) subcut QWEEK sucralfate 10 mL PO BEDTIME topiramate 200 mg PO BEDTIME vortioxetine 40 mg (2 x 20 mg) PO DAILY Tobacco use date assessed: 09/05/23 Dental Screening Dental Screen Date: 09/05/23 Did you have a dental visit in the last 12 months?: Yes Did you have a dental problem in the last 6 months where you did not have access to dental care?: No Was dental information given to patient?: Patient has dentist HPI Annual PE HPI Details Pt presents for PE PFSH Medical History (Updated 09/05/23 @ 12:47 by Francesca Magana MD) Major depression, recurrent, full remission Major depressive disorder, recurrent severe without psychotic features History of open sigmoidectomy (~04/15/04) Trigger thumb of right hand (~1963) Migraine headache Annual physical exam Anxiety and depression Microalbuminuria Abnormal colonoscopy Hyperlipemia DM type 2 (diabetes mellitus, type 2) Dysuria Adhesive capsulitis of shoulder History of trigger finger Surgical History History of esophagogastroduodenoscopy (EGD) Hx of colonoscopy History of ankle surgery H/O parathyroidectomy History of sinus surgery S/P tonsillectomy History of 2 sections Family History Father No problems noted. Mother No problems noted. Paternal Grandmother Colon cancer Other Major depressive disorder, recurrent severe without psychotic features Mental health disorder Social History Housing: House Are you a primary clinical manager home care to a significant other at home: No Do you presently have visiting nurse or other home services: No Alcohol intake: current Alcohol intake frequency: a few times a month Patient Tobacco Use Status: Never used Tobacco e-Cigarette/Vaping Use: Never Used service: No Current occupational status: retired Current occupation: retired-right handed Cognitive needs: No Hearing needs: No Vision needs: Yes Female Reproductive History Menstrual Age of Menarche: 11 Questionnaire PHQ-9 Over the last 2 weeks, how often have you been bothered by any of the following problems? 1. Little interest or pleasure in doing things: more than half the days 2. Feeling down, depressed, or hopeless: more than half the days 3. Trouble falling or staying asleep, or sleeping too much: nearly every day 4. Feeling tired or having little energy: several days 5. Poor appetite or overeating: nearly every day 6. Feeling bad about yourself - or that you are a failure or have let yourself or your family down: not at all 7. Trouble concentrating on things, such as reading the newspaper or watching television: not at all 8. Moving or speaking so slowly that other people could have noticed. Or the opposite - being so fidgety or restless that you have been moving around a lot more than usual: not at all 9. Thoughts that you would be better off or of hurting yourself in some way: not at all Total score: 11 Depression Screening Interpretation: Positive (pt follows up with psychiatrist) Depression Screening Follow-up: Existing condition and In treatment Depression Screening Done: Yes Source: Developed by Drs. Gee Keen, Prema Connolly, Sergio Vazquez and colleagues, with an educational hernan from [employer]. Thrive Questionnaire Date Thrive assessed: 09/05/23 I am a: Patient What is your living situation today?: I have a steady place to live Within the past 12 months, did the food you bought not last and you didn't have the money to get more?: Never true Within the past 12 months, did you worry whether your food would run out before you got money to buy more?: Never true Do you have trouble paying for medicines?: No Do you have trouble getting transportation to medical appointments?: No Do you have trouble paying your heating and electricity bill?: No Do you have trouble taking care of your child, family member or friend?: No Do you have trouble with day-to-day activities such as bathing, preparing meals, shopping, managing finances, etc.?: No Are you currently unemployed and looking for a job?: No Are you interested in more education?: No Please select the resources that you would like help with: None THRIVE Score: 0 AUDIT C Alcohol Use Questionnaire (AUDIT-C) 1. How often do you have a drink containing alcohol?: Monthly or less 2. How many drinks containing alcohol do you have on a typical day when you are drinking?: 1 or 2 3. How often do you have six or more drinks on one occasion?: Never Total Score: 1 JEFF-7 AMB Questionnaire JEFF-7 Date JEFF - 7 assessed: 09/05/23 Feeling nervous, anxious, or on edge: 0 = Not at all Not being able to stop or control worryin = Not at all Worrying too much about different things: 0 = Not at all Trouble relaxin = Not at all Being so restless that it is hard to sit still: 0 = Not at all Becoming easily annoyed or irritable: 0 = Not at all Feeling afraid as if something awful might happen: 0 = Not at all Total JEFF-7 score (0-4 normal; 5-9 mild; 10-14 moderate; 15-21 severe): 0 Source: Developed by Drs. Gee Keen, Prema Connolly, Sergio Vazquez and colleagues, with an educational hernan from [employer]. Review of Systems Const All systems reviewed & are unremarkable except as noted in HPI and below Reports no additional complaints Eyes Reports no additional complaints ENT Reports no additional complaints Card Reports no additional complaints Resp Reports no additional complaints GI Reports no additional complaints Reports no additional complaints Physical exam (Primary Care) Vital Signs: Last Vital Signs Pulse 86 09/05/23 10:17 BP 96/60 09/05/23 10:17 Pulse Ox 96 09/05/23 10:17 Oxygen Delivery Method Room Air 09/05/23 10:17 BMI result Body Mass Index 27.9 Tobacco/Smoking Status: Tobacco use Status Tobacco use date assessed 09/05/23 09/05/23 10:27 Patient Tobacco Use Status Never used Tobacco 09/05/23 10:27 e-Cigarette/Vaping Use Never Used 09/05/23 10:19 PHQ-9: PHQ-9 Score PHQ-9: Total score 11 09/05/23 11:03 Depression Screening Interpretation: Positive (pt follows up with psychiatrist) Depression Screening Follow-up: Existing condition and In treatment Thrive Assessment: Date of Thrive Assessment Date Thrive assessed 09/05/23 09/05/23 10:27 Const General: no acute distress HENMT Head: Yes normal to inspection Ears: TM's normal bilaterally Face and sinus: Yes normal facial exam Mouth: Normal oral and palatal mucosa present Eyes General: appearance normal, both eyes and all related structures Neck Neck: Yes no lymphadenopathy and Yes supple Resp Effort & Inspection: normal respiratory effort Auscultation: clear to auscultation bilaterally Cardio Rhythm: regular rhythm Heart sounds: S1 normal heart sound present and S2 normal heart sound present GI Inspection: Yes normal to inspection Palpation (GI): Soft to palpation Percussion: Yes normal to percussion Auscultation: normal bowel sounds Assessment and Plan Assessment & Plan (1) Major depressive disorder, recurrent severe without psychotic features: Comment: Patient is established with psychiatrist and therapist Code(s): F33.2 - Major depressive disorder, recurrent severe without psychotic features Plan: Follow-up with psychiatry (2) DM type 2 (diabetes mellitus, type 2): Code(s): E11.9 - Type 2 diabetes mellitus without complications Plan: A1c is 5.8, Ozempic will be increased to 0.5 mg weekly. ADA diet regular physical activity and continue metformin discussed with the patient. she will return in 6 months with a fasting labs before (3) Annual physical exam: Code(s): Z00.00 - Encounter for general adult medical examination without abnormal findings Plan: Well-balanced diet regular physical activity discussed with the patient she is up-to-date with mammogram colonoscopy and Pap by business education instructor (4) Microalbuminuria: Comment: On lisinopril Code(s): R80.9 - Proteinuria, unspecified Plan: Continue lisinopril (5) Hyperlipemia: Code(s): E78.5 - Hyperlipidemia, unspecified Plan: Continue statin Orders: Orders Hemoglobin A1c 6 Months E11.9 - Type 2 diabetes mellitus without complications, E55.9 - Vitamin D deficiency, unspecified, E78.5 - Hyperlipidemia, unspecified Lipid Panel 6 Months E11.9 - Type 2 diabetes mellitus without complications, E55.9 - Vitamin D deficiency, unspecified, E78.5 - Hyperlipidemia, unspecified Microalbumin, Random (w Creat) 6 Months E11.9 - Type 2 diabetes mellitus without complications, E55.9 - Vitamin D deficiency, unspecified, E78.5 - Hyperlipidemia, unspecified Comprehensive [place]. Panel Fast 6 Months E11.9 - Type 2 diabetes mellitus without complications, E55.9 - Vitamin D deficiency, unspecified, E78.5 - Hyperlipidemia, unspecified Complete Blood Count Auto Diff 6 Months E11.9 - Type 2 diabetes mellitus without complications, E55.9 - Vitamin D deficiency, unspecified, E78.5 - Hyperlipidemia, unspecified TSH reflex Free T4 6 Months E11.9 - Type 2 diabetes mellitus without complications, E55.9 - Vitamin D deficiency, unspecified, E78.5 - Hyperlipidemia, unspecified Vitamin D 25-OH Total 6 Months E11.9 - Type 2 diabetes mellitus without complications, E55.9 - Vitamin D deficiency, unspecified, E78.5 - Hyperlipidemia, unspecified Medications: Changed From semaglutide (Ozempic) for 4 weeks 0.25 mg (0.368 mL) subcut QWEEK 9 mL 1RF To Ozempic (semaglutide) 0.5 mg (0.736 mL) subcut QWEEK 9 mL 2RF NS Coding Level of Care Code Est Pt Prev Care 40-64y(65950) Diagnoses Major depressive disorder, recurrent severe without psychotic features F33.2 DM type 2 (diabetes mellitus, type 2) E11.9 Annual physical exam Z00.00 Microalbuminuria R80.9 Hyperlipemia E78.5
== END 2023-09-05 11:12 | disposition home or self-care (01) ==
PROVIDERS: Visit Provider Internal Medicine
DX: F33.2 Major depressive disorder, recurrent severe without psychotic features (principal); E11.9 Type 2 diabetes mellitus without complications; Z00.00 Encounter for general adult medical examination without abnormal findings; R80.9 Proteinuria, unspecified; E78.5 Hyperlipidemia, unspecified
CPT/HCPCS: 99396

== ENCOUNTER 2023-10-11 14:00 | Outpatient (RCR) | payer OTHER, SELFPAY ==
--- NOTE | 2023-06-17 11:01 | P.CONTMS_ITS ---
[facility] Medical History (Updated 06/04/23 @ 15:11 by Francesca Magana MD) History of open sigmoidectomy (~04/15/04) Trigger thumb of right hand (~1963) Migraine headache Annual physical exam Anxiety and depression Microalbuminuria Abnormal colonoscopy Hyperlipemia DM type 2 (diabetes mellitus, type 2) Dysuria Adhesive capsulitis of shoulder History of trigger finger Surgical History History of esophagogastroduodenoscopy (EGD) Hx of colonoscopy History of ankle surgery H/O parathyroidectomy History of sinus surgery S/P tonsillectomy History of 2 sections Family History: Patient's younger brother has a history of depression post grandfather suicided father has a history of depression Social History: Patient has 2 brothers 1 sister her mother is alive she grew up in [place] [employer] Has had 1 son suicide she has 1 child living Trauma History: pos Meds/Allergies Meds Home Medications Medication Instructions Recorded Confirmed Type loratadine 10 mg capsule 10 mg PO DAILY 02/08/20 06/04/23 History onabotulinumtoxinA 200 unit intradermal .every 12 weeks 11/24/20 06/04/23 History solution for injection (Botox) rimegepant 75 mg disintegrating 75 mg PO DAILY PRN migraine 11/24/20 06/04/23 History tablet (Nurtec ODT) aripiprazole 2 mg tablet 2 mg PO DAILY 09/03/22 06/04/23 History cholecalciferol (vitamin D3) 25 25 mcg PO DAILY 09/03/22 06/04/23 History mcg (1,000 unit) capsule omega-3 fatty acids [Fish Oil] PO DAILY 09/03/22 06/04/23 History sucralfate 100 mg/mL oral 10 ml PO BEDTIME 02/15/23 06/04/23 History suspension bupropion HCl 150 mg 24 hr tablet, 150 mg PO QAM 06/04/23 06/04/23 History extended release Allergies Allergies Allergy/AdvReac Type Severity Reaction Status Date / Time acetaminophen [Percocet] Allergy Unknown Rash Verified 06/04/23 11:52 iodine Allergy Unknown Wheezing, Verified 06/04/23 11:52 rash oxycodone [Percocet] Allergy Unknown Wheezing, Verified 06/04/23 11:52 rash azithromycin Allergy rash Verified 06/04/23 11:52 Percodan Allergy Unknown wheezing Uncoded 06/04/23 11:52 and rash Assessment & Plan Total time managing care of this patient today ____ minutes.
--- NOTE | 2023-06-17 11:02 | P.CONTMS_ITS ---
History of Present Illness General Data Date of Service: 12/09/22 Reason for consult: tms retreatment ref psych wellness grp retreatment History of Present Illness The patient is a 58-year-old female with a long history of severe disabling depression who completed a course of TMS approximately 7 months ago and had a marked improvement. Patient had not responded to anything over many years multiple medication and psychotherapy treatments and had her 1st treatment response ever last year. She started to experience relapse symptoms a number of weeks ago. She is staying in bed lethargic significantly a motivational and has generally stopped functioning which was her prior level of functioning prior to treatment. Mood is depressed severely motivational hopeless helpless denies active thoughts of suicide. No obvious trigger to relapse Her linda cruz had noted a marked change she was able to cook couple of times a week leave the house engage in activities. She was unable to function shower leave the house and has been on disability. 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 She does see a nurse practitioner and also has regular psychotherapy with Kianna alberto medication management by Cheyanne Arndt nurse practitioner Patient Trintellix has been at up to 40 mg Wellbutrin added 150 mg Abilify 2 mg gabapentin 300 mg Topamax 200 mg. Patient does have a history of past suicide attempt and has been severely depressed and disabled since 2015. Should be noted that her son of his suicide attempt 2 years ago. The patient's depression was unrelenting until last years course of TMS treatment. PHQ started at 17 ended at 2 quality of life markedly improved. Patient does use a light box for augmentation patient does have family support Past Psychiatric History/Medication Trials: Trials of multiple SSRIs SNRIs MAO inhibitors [facility] Medical History (Updated 06/17/23 @ 12:18 by Jean Pina MD) Major depressive disorder, recurrent severe without psychotic features History of open sigmoidectomy (~04/15/04) Trigger thumb of right hand (~1963) Migraine headache Annual physical exam Anxiety and depression Microalbuminuria Abnormal colonoscopy Hyperlipemia DM type 2 (diabetes mellitus, type 2) Dysuria Adhesive capsulitis of shoulder History of trigger finger Surgical History History of esophagogastroduodenoscopy (EGD) Hx of colonoscopy History of ankle surgery H/O parathyroidectomy History of sinus surgery S/P tonsillectomy History of 2 sections Family History: Patient's younger brother has a history of depression post grandfather suicided father has a history of depression Social History: Patient has 2 brothers 1 sister her mother is alive she grew up in [facility] Has had 1 son suicide she has 1 child living Trauma History: pos Meds/Allergies Meds Home Medications Medication Instructions Recorded Confirmed Type loratadine 10 mg capsule 10 mg PO DAILY 02/08/20 06/04/23 History onabotulinumtoxinA 200 unit intradermal .every 12 weeks 11/24/20 06/04/23 History solution for injection (Botox) rimegepant 75 mg disintegrating 75 mg PO DAILY PRN migraine 11/24/20 06/04/23 History tablet (Nurtec ODT) aripiprazole 2 mg tablet 2 mg PO DAILY 09/03/22 06/04/23 History cholecalciferol (vitamin D3) 25 25 mcg PO DAILY 09/03/22 06/04/23 History mcg (1,000 unit) capsule omega-3 fatty acids [Fish Oil] PO DAILY 09/03/22 06/04/23 History sucralfate 100 mg/mL oral 10 ml PO BEDTIME 02/15/23 06/04/23 History suspension bupropion HCl 150 mg 24 hr tablet, 150 mg PO QAM 06/04/23 06/04/23 History extended release Allergies Allergies Allergy/AdvReac Type Severity Reaction Status Date / Time acetaminophen [Percocet] Allergy Unknown Rash Verified 06/04/23 11:52 iodine Allergy Unknown Wheezing, Verified 06/04/23 11:52 rash oxycodone [Percocet] Allergy Unknown Wheezing, Verified 06/04/23 11:52 rash azithromycin Allergy rash Verified 06/04/23 11:52 Percodan Allergy Unknown wheezing Uncoded 06/04/23 11:52 and rash Mental Status Exam Mental Status Exam Patient Appearance: Fatigued and Appropriate Patient Orientation: Person, Place, Time and Situation Level of Consciousness: Awake and Appropriate Patient Behavior: Appropriate Mood Description: Depressed, Blunted and Flat Affect Description: Appropriate, Constricted and Depressed Patient Cognition Impaired: No Ability to Follow Directions: Good Speech Pattern: Clear Memory Description: Intact Hallucinations: None Delusions: Not Present Thought Process: Intact and Goal Oriented Thought Content: positive for Goal Oriented, positive for Preoccupation, negat connor for Suicidal Ideation or negative for Homicidal Ideation Depressive Symptoms: Increased Anxiety, Increased Irritability, Hopelessness, Unexplained Headaches, Increased Fatigue, Thoughts of /Suicide, Loss of Energy and Difficulty Concentrating Judgement: Good Assessment & Plan Assessment & Plan (1) Major depressive disorder, recurrent severe without psychotic features: Status: Acute Code(s): F33.2 - Major depressive disorder, recurrent severe without psychotic features Plan Patient is asking for treatment with TMS stating she had not felt in any way better after many years until treatment which had been remarkable for her The patient is seen with her she had a marked response to TMS had minimal quality of life and was mostly bed ridden for many years. She has been starting to have those symptoms again in both she and her are quite clear that she had remarkable improvement patient tolerated prior treatment quite well with TMS. Patient meets indication for retreatment with TMS after response from PHQ-9 is 17 down to 2 Current PHQ-9 is 18 patient is markedly not functional no longer participating in a significant way with her and son Patient tolerated prior treatment quite well despite history of migraine no metallic implants history of seizure no contraindications there is extensive family history of suicide. Total time managing care of this patient today __60__ minutes. Patient educated on: diagnosis and TMS Informed Consent: understands
--- NOTE | 2023-06-26 22:38 | P.PNPS_ITS ---
TMS Daily Progress Note Daily TMS Progress Note Date of Service: 06/26/23 Week #: 1 Treatment #(05-14): 2 PHQ-9 Pre-Treatment (05-11): 18 PHQ-9 Most Recent (05-11): 18 Reviewed: TMS Tech Note Reviewed Verification: I have reviewed the TMS Associate Media Planner Note and agree with the contents. The patient remains a candidate to continue TMS treatment per protocol. Assessment and Plan (1) Major depressive disorder, recurrent severe without psychotic features: Status: Acute Plan Patient had some fatigue after 1st treatment otherwise tolerating treatment well
--- NOTE | 2023-06-26 22:38 | P.PNPS_ITS ---
TMS Daily Progress Note Daily TMS Progress Note Date of Service: 06/25/23 Week #: 1 Treatment #(05-14): 1 PHQ-9 Pre-Treatment (05-11): 18 PHQ-9 Most Recent (05-11): 18 Reviewed: TMS Tech Note Reviewed Verification: I have reviewed the TMS Die Maker Apprentice Note and agree with the contents. The patient remains a candidate to continue TMS treatment per protocol. Assessment and Plan (1) Major depressive disorder, recurrent severe without psychotic features: Status: Acute Plan initial mapping completed without difficulty
--- NOTE | 2023-07-11 11:14 | HO.TMSDAILY2 ---
TMS Daily Progress Note Daily TMS Progress Note Date of Service: 06/27/23 Week #: 1 Treatment #(05-14): 3 PHQ-9 Pre-Treatment (05-11): 18 PHQ-9 Most Recent (05-11): 18 Reviewed: TMS Tech Note Reviewed Verification: I have reviewed the TMS Collections Associate Note and agree with the contents. The patient remains a candidate to continue TMS treatment per protocol. Assessment and Plan (1) Major depressive disorder, recurrent severe without psychotic features: Status: Acute Plan Continue treatment plan well tolerated comes with
--- NOTE | 2023-07-11 11:19 | P.PNPS_ITS ---
TMS Daily Progress Note Daily TMS Progress Note Date of Service: 06/28/23 Week #: 1 Treatment #(05-14): 4 PHQ-9 Pre-Treatment (05-11): 18 PHQ-9 Most Recent (05-11): 18 Reviewed: TMS Tech Note Reviewed Verification: I have reviewed the TMS Bevel Mill Operator Note and agree with the contents. The patient remains a candidate to continue TMS treatment per protocol. Assessment and Plan (1) Major depressive disorder, recurrent severe without psychotic features: Status: Acute Plan No change indicated at this time gradual increase in MT %
--- NOTE | 2023-07-11 11:20 | P.PNPS_ITS ---
TMS Daily Progress Note Daily TMS Progress Note Date of Service: 07/01/23 Week #: 1 Treatment #(05-14): 5 PHQ-9 Pre-Treatment (05-11): 18 PHQ-9 Most Recent (05-11): 18 Reviewed: TMS Tech Note Reviewed Verification: I have reviewed the TMS Creasing Machine Operator Note and agree with the contents. The patient remains a candidate to continue TMS treatment per protocol. Assessment and Plan (1) Major depressive disorder, recurrent severe without psychotic features: Status: Acute Plan Continue to increase MT% some neck pain positional uses ice pack
--- NOTE | 2023-07-11 11:23 | P.PNPS_ITS ---
TMS Daily Progress Note Daily TMS Progress Note Date of Service: 07/02/23 Week #: 2 Treatment #(05-14): 6 PHQ-9 Pre-Treatment (05-11): 18 PHQ-9 Most Recent (05-11): 18 Reviewed: TMS Tech Note Reviewed Verification: I have reviewed the TMS Flame Cutting Supervisor Note and agree with the contents. The patient remains a candidate to continue TMS treatment per protocol. Assessment and Plan (1) Major depressive disorder, recurrent severe without psychotic features: Status: Acute Plan Starting to feel little pals specialist
--- NOTE | 2023-07-11 11:24 | HO.TMSDAILY2 ---
TMS Daily Progress Note Daily TMS Progress Note Date of Service: 07/03/23 Week #: 2 Treatment #(05-14): 7 PHQ-9 Pre-Treatment (05-11): 18 PHQ-9 Most Recent (05-11): 12 Reviewed: TMS Tech Note Reviewed Verification: I have reviewed the TMS Station Engineer Note and agree with the contents. The patient remains a candidate to continue TMS treatment per protocol. Assessment and Plan (1) Major depressive disorder, recurrent severe without psychotic features: Status: Acute Plan Patient is starting to feel somewhat director immunology
--- NOTE | 2023-07-11 11:26 | HO.TMSDAILY2 ---
TMS Daily Progress Note Daily TMS Progress Note Date of Service: 07/04/23 Week #: 2 Treatment #(05-14): 8 PHQ-9 Pre-Treatment (05-11): 18 PHQ-9 Most Recent (05-11): 12 Reviewed: TMS Tech Note Reviewed Verification: I have reviewed the TMS Supervisor Accounts Receivable Note and agree with the contents. The patient remains a candidate to continue TMS treatment per protocol. Assessment and Plan (1) Major depressive disorder, recurrent severe without psychotic features: Status: Acute Plan Continue plan of care
--- NOTE | 2023-07-11 11:29 | HO.TMSDAILY2 ---
TMS Daily Progress Note Daily TMS Progress Note Date of Service: 07/08/23 Week #: 2 Treatment #(05-14): 9 PHQ-9 Pre-Treatment (05-11): 18 PHQ-9 Most Recent (05-11): 12 Reviewed: TMS Tech Note Reviewed Verification: I have reviewed the TMS Financial Project Manager Note and agree with the contents. The patient remains a candidate to continue TMS treatment per protocol. Assessment and Plan (1) Major depressive disorder, recurrent severe without psychotic features: Status: Acute Plan Patient showing early benefit
--- NOTE | 2023-07-11 11:32 | HO.TMSDAILY2 ---
TMS Daily Progress Note Daily TMS Progress Note Date of Service: 07/09/23 Week #: 2 Treatment #(05-14): 10 PHQ-9 Pre-Treatment (05-11): 18 PHQ-9 Most Recent (05-11): 12 Reviewed: TMS Tech Note Reviewed Verification: I have reviewed the TMS Assembly And Packing Supervisor Note and agree with the contents. The patient remains a candidate to continue TMS treatment per protocol. Assessment and Plan (1) Major depressive disorder, recurrent severe without psychotic features: Status: Acute Plan Patient showing early benefit ongoing
--- NOTE | 2023-07-11 11:33 | HO.TMSDAILY2 ---
TMS Daily Progress Note Daily TMS Progress Note Date of Service: 07/18/23 Week #: 4 Treatment #(05-14): 17 PHQ-9 Pre-Treatment (05-11): 18 PHQ-9 Most Recent (05-11): 12 Reviewed: TMS Tech Note Reviewed Verification: I have reviewed the TMS Nurse Instructor Note and agree with the contents. The patient remains a candidate to continue TMS treatment per protocol. Assessment and Plan (1) Major depressive disorder, recurrent severe without psychotic features: Status: Acute Plan Patient showing benefit ongoing
--- NOTE | 2023-07-15 16:10 | HO.TMSDAILY2 ---
TMS Daily Progress Note Daily TMS Progress Note Date of Service: 07/12/23 Week #: 3 Treatment #(-): 13 PHQ-9 Pre-Treatment (-): 18 PHQ-9 Most Recent (05-11): 12 JEFF-7 Pre-Treatment (0-21): 3 JEFF-7 Most Recent (0-21): 5 Reviewed: TMS Tech Note Reviewed Verification: I have reviewed the TMS Garnishment Specialist Note and agree with the contents. The patient remains a candidate to continue TMS treatment per protocol.
--- NOTE | 2023-07-18 11:05 | HO.TMSDAILY2 ---
TMS Daily Progress Note Daily TMS Progress Note Date of Service: 07/17/23 Week #: 4 Treatment #(-): 16 PHQ-9 Pre-Treatment (-): 18 PHQ-9 Most Recent (05-11): 8 JEFF-7 Pre-Treatment (0-21): 3 JEFF-7 Most Recent (0-21): 3 Reviewed: TMS Tech Note Reviewed Verification: I have reviewed the TMS Product Promoter Sales Person Note and agree with the contents. The patient remains a candidate to continue TMS treatment per protocol.
--- NOTE | 2023-08-11 20:31 | P.PNPS_ITS ---
TMS Daily Progress Note Daily TMS Progress Note Date of Service: 07/19/23 Week #: 4 Treatment #(05-14): 18 PHQ-9 Pre-Treatment (-): 18 PHQ-9 Most Recent (05-11): 8 JEFF-7 Pre-Treatment (0-21): 3 JEFF-7 Most Recent (0-21): 3 Reviewed: TMS Tech Note Reviewed Verification: I have reviewed the TMS Menagerie Caretaker Note and agree with the contents. The patient remains a candidate to continue TMS treatment per protocol. Assessment and Plan (1) Major depressive disorder, recurrent severe without psychotic features: Status: Acute Plan much improved
--- NOTE | 2023-08-11 20:47 | P.PNPS_ITS ---
TMS Daily Progress Note Daily TMS Progress Note Date of Service: 07/23/23 Week #: 4 Treatment #(-): 19 PHQ-9 Pre-Treatment (-): 18 PHQ-9 Most Recent (05-11): 8 JEFF-7 Pre-Treatment (0-21): 3 JEFF-7 Most Recent (0-21): 3 Reviewed: TMS Tech Note Reviewed Verification: I have reviewed the TMS Corporate Tax Preparer Note and agree with the contents. The patient remains a candidate to continue TMS treatment per protocol. Assessment and Plan (1) Major depressive disorder, recurrent severe without psychotic features: Status: Acute Plan cont plan of care
--- NOTE | 2023-08-11 20:56 | P.PNPS_ITS ---
TMS Daily Progress Note Daily TMS Progress Note Date of Service: 07/24/23 Week #: 4 Treatment #(-): 20 PHQ-9 Pre-Treatment (-): 18 PHQ-9 Most Recent (05-11): 8 JEFF-7 Pre-Treatment (0-21): 3 JEFF-7 Most Recent (0-21): 3 Reviewed: TMS Tech Note Reviewed Verification: I have reviewed the TMS Brooch Maker Novelty Note and agree with the contents. The patient remains a candidate to continue TMS treatment per protocol. Assessment and Plan (1) Major depressive disorder, recurrent severe without psychotic features: Status: Acute Plan continues to tolerate tx
--- NOTE | 2023-08-11 21:03 | HO.TMSDAILY2 ---
TMS Daily Progress Note Daily TMS Progress Note Date of Service: 07/25/23 Week #: 5 Treatment #(-): 21 PHQ-9 Pre-Treatment (-): 18 PHQ-9 Most Recent (05-11): 8 JEFF-7 Pre-Treatment (0-21): 3 JEFF-7 Most Recent (0-21): 3 Reviewed: TMS Tech Note Reviewed Verification: I have reviewed the TMS Hand Spring Repairer Helper Note and agree with the contents. The patient remains a candidate to continue TMS treatment per protocol. Assessment and Plan (1) Major depressive disorder, recurrent severe without psychotic features: Status: Acute Plan cont plan of care pt now taking l methyl folate
--- NOTE | 2023-08-11 21:10 | P.PNPS_ITS ---
TMS Daily Progress Note Daily TMS Progress Note Date of Service: 07/25/23 Week #: 5 Treatment #(-30): 21 PHQ-9 Pre-Treatment (-): 18 PHQ-9 Most Recent (05-11): 8 JEFF-7 Pre-Treatment (0-21): 3 JEFF-7 Most Recent (0-21): 3 Reviewed: TMS Tech Note Reviewed Verification: I have reviewed the TMS Transitions Rn Care Coordinator Note and agree with the contents. The patient remains a candidate to continue TMS treatment per protocol. Assessment and Plan (1) Major depressive disorder, recurrent severe without psychotic features: Status: Acute Plan cont plan of care
--- NOTE | 2023-08-11 21:16 | HO.TMSDAILY2 ---
TMS Daily Progress Note Daily TMS Progress Note Date of Service: 07/26/23 Week #: 5 Treatment #(-30): 22 PHQ-9 Pre-Treatment (-): 18 PHQ-9 Most Recent (05-11): 8 JEFF-7 Pre-Treatment (0-21): 3 JEFF-7 Most Recent (0-21): 3 Reviewed: TMS Tech Note Reviewed Verification: I have reviewed the TMS Vice President Pharmacy Note and agree with the contents. The patient remains a candidate to continue TMS treatment per protocol. Assessment and Plan (1) Major depressive disorder, recurrent severe without psychotic features: Status: Acute Plan cont plan of care
--- NOTE | 2023-08-29 14:48 | HO.TMSDCTER ---
TMS Discharge-Termination Chart Review Treatments Completed: The patient is a 58-year-old female with a history an excellent response to TMS and presented for retreatment after significant relapse. The patient has completed a course of 36 treatments motor threshold 1.24 initial treatment at 80% and increased to 120%. The patient had an initial PHQ-9 of 18 recent PHQ-9 was 6. The patient does state that during her previous course she did have significant improvement in motivation energy and functioning. She had a history of many years of clinical depression in which she became nonfunctional not attending to basic tasks and this changed after her last treatment. She has had a significant response what would ideally benefit from an extended course of 3 more weeks of tapering 2 to 3 times a week I am asking for 9 further treatments. I believe that somewhat extended course would help improve the patient's functioning in such a way as it did during her last treatment Initial MT%: 80% Final MT%: 120% Was Remapping Required: No Clinical Evaluation/Review PHQ-9 Pre-Treatment (-): 18 PHQ-9 Post-Treatment (-): 6 JEFF-7 Pre-Treatment (0-21): 3 JEFF-7 Most Recent (0-21): 2 CGI-I Initial: 0 = Not Assessed CGI-I Post Treatment: 0 = Not Assessed Q-LES-Q-SF Pre-Treatment: 24 Q-LES-Q-SF Post-Treatment: 49 Adverse Effects Local Pain/Discomfort: Yes Headache: No Facial Pain: No Seizure: No Other: some fatigue Impression Impression: The patient has had a good response to treatment however was just starting to have a surgery in improvement in energy motivation and functioning and would recommend continuation treatment for another 9 to 12 treatments This has been the only effective treatment for the patient's severe disabling depression Recommendations TMS: Maintenance Medication Changes: l methyl folate added Follow-up w/ Prescriber: The patient has scheduled psychiatric follow-up
--- NOTE | 2023-08-29 15:24 | P.PNPS_ITS ---
TMS Daily Progress Note Daily TMS Progress Note Date of Service: 08/09/23 Week #: 6 Treatment #(-30): 30 PHQ-9 Pre-Treatment (-): 18 PHQ-9 Most Recent (05-11): 7 JEFF-7 Pre-Treatment (0-21): 3 JEFF-7 Most Recent (0-21): 3 Reviewed: TMS Tech Note Reviewed Verification: I have reviewed the TMS Halver Machine Operator Note and agree with the contents. The patient remains a candidate to continue TMS treatment per protocol. Assessment and Plan (1) Major depressive disorder, recurrent severe without psychotic features: Status: Acute Plan Continue plan of care no adverse effects improvement noted
--- NOTE | 2023-08-29 15:24 | P.PNPS_ITS ---
TMS Daily Progress Note Daily TMS Progress Note Date of Service: 07/30/23 Week #: 5 Treatment #(-30): 23 PHQ-9 Pre-Treatment (1-): 18 PHQ-9 Most Recent (05-11): 8 JEFF-7 Pre-Treatment (0-21): 3 JEFF-7 Most Recent (0-21): 3 Reviewed: TMS Tech Note Reviewed Verification: I have reviewed the TMS Real Estate Transaction Coordinator Note and agree with the contents. The patient remains a candidate to continue TMS treatment per protocol. Assessment and Plan (1) Major depressive disorder, recurrent severe without psychotic features: Status: Acute Plan cont plan of care
--- NOTE | 2023-08-29 15:24 | P.PNPS_ITS ---
TMS Daily Progress Note Daily TMS Progress Note Date of Service: 08/07/23 Week #: 6 Treatment #(-): 28 PHQ-9 Pre-Treatment (-): 18 PHQ-9 Most Recent (05-11): 7 JEFF-7 Pre-Treatment (0-21): 3 JEFF-7 Most Recent (0-21): 3 Reviewed: TMS Tech Note Reviewed Verification: I have reviewed the TMS Clinical Trial Associate Note and agree with the contents. The patient remains a candidate to continue TMS treatment per protocol. Assessment and Plan (1) Major depressive disorder, recurrent severe without psychotic features: Status: Acute Plan Continue plan of care no adverse effects starting to fx somewhat better uses ice pack for neck has chronic pain
--- NOTE | 2023-08-29 15:24 | P.PNPS_ITS ---
TMS Daily Progress Note Daily TMS Progress Note Date of Service: 08/08/23 Week #: 6 Treatment #(-30): 29 PHQ-9 Pre-Treatment (-): 18 PHQ-9 Most Recent (05-11): 7 JEFF-7 Pre-Treatment (0-21): 3 JEFF-7 Most Recent (0-21): 3 Reviewed: TMS Tech Note Reviewed Verification: I have reviewed the TMS Outbound Sales Advisor Note and agree with the contents. The patient remains a candidate to continue TMS treatment per protocol. Assessment and Plan (1) Major depressive disorder, recurrent severe without psychotic features: Status: Acute Plan Continue plan of care no adverse effects starting to fx somewhat better
--- NOTE | 2023-08-29 15:24 | HO.PSYCHPN ---
Subjective Subjective Reason For Visit: Depression Medications Allergies Allergies Allergy/AdvReac Type Severity Reaction Status Date / Time acetaminophen [Percocet] Allergy Unknown Rash Verified 06/04/23 11:52 iodine Allergy Unknown Wheezing, Verified 06/04/23 11:52 rash oxycodone [Percocet] Allergy Unknown Wheezing, Verified 06/04/23 11:52 rash azithromycin Allergy rash Verified 06/04/23 11:52 Percodan Allergy Unknown wheezing Uncoded 06/04/23 11:52 and rash Assessment & Plan Assessment & Plan (1) Major depressive disorder, recurrent severe without psychotic features: Status: Acute Code(s): F33.2 - Major depressive disorder, recurrent severe without psychotic features Plan cont plan of care Time Spent With Patient Time: Total time managing care of this patient today ____ minutes.
--- NOTE | 2023-08-29 15:24 | P.PNPS_ITS ---
TMS Daily Progress Note Daily TMS Progress Note Date of Service: 07/31/23 Week #: 5 Treatment #(-30): 24 PHQ-9 Pre-Treatment (-): 18 PHQ-9 Most Recent (05-11): 6 JEFF-7 Pre-Treatment (0-21): 3 JEFF-7 Most Recent (0-21): 3 Reviewed: TMS Tech Note Reviewed Verification: I have reviewed the TMS Furnace Repairer Helper Note and agree with the contents. The patient remains a candidate to continue TMS treatment per protocol. Assessment and Plan (1) Major depressive disorder, recurrent severe without psychotic features: Status: Acute Plan cont plan of care shows clear improvement
--- NOTE | 2023-08-29 15:24 | P.PNPS_ITS ---
TMS Daily Progress Note Daily TMS Progress Note Date of Service: 07/30/23 Week #: 5 Treatment #(-30): 23 PHQ-9 Pre-Treatment (1-): 18 PHQ-9 Most Recent (05-11): 8 JEFF-7 Pre-Treatment (0-21): 3 JEFF-7 Most Recent (0-21): 3 Reviewed: TMS Tech Note Reviewed Verification: I have reviewed the TMS Liability Analyst Note and agree with the contents. The patient remains a candidate to continue TMS treatment per protocol. Assessment and Plan (1) Major depressive disorder, recurrent severe without psychotic features: Status: Acute Plan cont plan of care
--- NOTE | 2023-08-29 15:24 | HO.TMSDAILY2 ---
TMS Daily Progress Note Daily TMS Progress Note Date of Service: 08/01/23 Week #: 5 Treatment #(-30): 25 PHQ-9 Pre-Treatment (1-): 18 PHQ-9 Most Recent (-): 8 JEFF-7 Pre-Treatment (0-21): 3 JEFF-7 Most Recent (0-21): 3 Reviewed: TMS Tech Note Reviewed Verification: I have reviewed the TMS Aircrewman Note and agree with the contents. The patient remains a candidate to continue TMS treatment per protocol. Assessment and Plan (1) Major depressive disorder, recurrent severe without psychotic features: Status: Acute Plan Continue plan of care no adverse effects
--- NOTE | 2023-08-29 15:25 | P.PNPS_ITS ---
TMS Daily Progress Note Daily TMS Progress Note Date of Service: 08/14/23 Week #: 7 Treatment #(-): 32 PHQ-9 Pre-Treatment (-): 18 PHQ-9 Most Recent (05-11): 6 JEFF-7 Pre-Treatment (0-21): 3 JEFF-7 Most Recent (0-21): 3 Reviewed: TMS Tech Note Reviewed Verification: I have reviewed the TMS Manager Camp Note and agree with the contents. The patient remains a candidate to continue TMS treatment per protocol. Assessment and Plan (1) Major depressive disorder, recurrent severe without psychotic features: Status: Acute Plan cont plan of care clear improvement
--- NOTE | 2023-08-29 15:25 | P.PNPS_ITS ---
TMS Daily Progress Note Daily TMS Progress Note Date of Service: 08/16/23 Week #: 7 Treatment #(-): 33 PHQ-9 Pre-Treatment (-): 18 PHQ-9 Most Recent (05-11): 6 JEFF-7 Pre-Treatment (0-21): 3 JEFF-7 Most Recent (0-21): 3 Reviewed: TMS Tech Note Reviewed Verification: I have reviewed the TMS Plc Programmer Note and agree with the contents. The patient remains a candidate to continue TMS treatment per protocol. Assessment and Plan (1) Major depressive disorder, recurrent severe without psychotic features: Status: Acute Plan Continue plan of care no adverse effects feeling better
--- NOTE | 2023-08-29 15:25 | P.PNPS_ITS ---
TMS Daily Progress Note Daily TMS Progress Note Date of Service: 08/21/23 Week #: 8 Treatment #(-): 35 PHQ-9 Pre-Treatment (-): 18 PHQ-9 Most Recent (05-11): 6 JEFF-7 Pre-Treatment (0-21): 3 JEFF-7 Most Recent (0-21): 3 Reviewed: TMS Tech Note Reviewed Verification: I have reviewed the TMS Assistant Infant Teacher Note and agree with the contents. The patient remains a candidate to continue TMS treatment per protocol. Assessment and Plan (1) Major depressive disorder, recurrent severe without psychotic features: Status: Acute Plan Feels like maybe back sliding glad about treatment wondering about continuation
--- NOTE | 2023-08-29 15:25 | P.PNPS_ITS ---
TMS Daily Progress Note Daily TMS Progress Note Date of Service: 08/12/23 Week #: 7 Treatment #(-): 31 PHQ-9 Pre-Treatment (-): 18 PHQ-9 Most Recent (05-11): 6 JEFF-7 Pre-Treatment (0-21): 3 JEFF-7 Most Recent (0-21): 3 Reviewed: TMS Tech Note Reviewed Verification: I have reviewed the TMS Leasing Professional Note and agree with the contents. The patient remains a candidate to continue TMS treatment per protocol. Assessment and Plan (1) Major depressive disorder, recurrent severe without psychotic features: Status: Acute Plan Continue plan of care no adverse effects continues improved
--- NOTE | 2023-08-29 15:25 | P.PNPS_ITS ---
TMS Daily Progress Note Daily TMS Progress Note Date of Service: 08/19/23 Week #: 8 Treatment #(-): 34 PHQ-9 Pre-Treatment (-): 18 PHQ-9 Most Recent (05-11): 6 JEFF-7 Pre-Treatment (0-21): 3 JEFF-7 Most Recent (0-21): 3 Reviewed: TMS Tech Note Reviewed Verification: I have reviewed the TMS Border Measurer Note and agree with the contents. The patient remains a candidate to continue TMS treatment per protocol. Assessment and Plan (1) Major depressive disorder, recurrent severe without psychotic features: Status: Acute Plan Continue plan of care no adverse effects fx better improved
--- NOTE | 2023-08-29 15:26 | P.PNPS_ITS ---
TMS Daily Progress Note Daily TMS Progress Note Date of Service: 08/05/23 Week #: 6 Treatment #(-30): 26 PHQ-9 Pre-Treatment (-): 18 PHQ-9 Most Recent (05-11): 7 JEFF-7 Pre-Treatment (0-21): 3 JEFF-7 Most Recent (0-21): 3 Reviewed: TMS Tech Note Reviewed Verification: I have reviewed the TMS Instructional Systems Designer Note and agree with the contents. The patient remains a candidate to continue TMS treatment per protocol. Assessment and Plan (1) Major depressive disorder, recurrent severe without psychotic features: Status: Acute Plan Continue plan of care no adverse effects starting to fx somewhat better
--- NOTE | 2023-08-29 15:26 | P.PNPS_ITS ---
TMS Daily Progress Note Daily TMS Progress Note Date of Service: 08/06/23 Week #: 6 Treatment #(-30): 27 PHQ-9 Pre-Treatment (-): 18 PHQ-9 Most Recent (05-11): 7 JEFF-7 Pre-Treatment (0-21): 3 JEFF-7 Most Recent (0-21): 3 Reviewed: TMS Tech Note Reviewed Verification: I have reviewed the TMS Slot Machine Repairer Note and agree with the contents. The patient remains a candidate to continue TMS treatment per protocol. Assessment and Plan (1) Major depressive disorder, recurrent severe without psychotic features: Status: Acute Plan Continue plan of care no adverse effects starting to fx somewhat better fx improving
--- NOTE | 2023-08-29 15:26 | HO.TMSDAILY2 ---
TMS Daily Progress Note Daily TMS Progress Note Date of Service: 08/23/23 Week #: 8 Treatment #(-): 36 PHQ-9 Pre-Treatment (-): 18 PHQ-9 Most Recent (05-11): 8 JEFF-7 Pre-Treatment (0-21): 3 JEFF-7 Most Recent (0-21): 3 Reviewed: TMS Tech Note Reviewed Verification: I have reviewed the TMS Historical Archeologist Note and agree with the contents. The patient remains a candidate to continue TMS treatment per protocol. Assessment and Plan (1) Major depressive disorder, recurrent severe without psychotic features: Status: Acute Plan Patient feels better no adverse effects however felt she had a stronger response last time asking for possibility of additional treatment
--- NOTE | 2023-09-22 21:03 | HO.TMSDAILY2 ---
TMS Daily Progress Note Daily TMS Progress Note Date of Service: 09/18/23 Week #: 8 Treatment #(-): 37 PHQ-9 Pre-Treatment (-): 6 PHQ-9 Most Recent (05-11): 8 JEFF-7 Pre-Treatment (0-21): 3 JEFF-7 Most Recent (0-): 3 Reviewed: TMS Tech Note Reviewed Verification: I have reviewed the TMS Network Support Engineer Note and agree with the contents. The patient remains a candidate to continue TMS treatment per protocol. Assessment and Plan (1) Major depressive disorder, recurrent severe without psychotic features: Status: Acute Plan Patient with extended treatment course Abilify has been increased to 5 mg since when last seen. Patient has been approved for 10 additional continuation treatments. Treatment completed some fatigue noted
--- NOTE | 2023-09-22 21:09 | HO.TMSDAILY2 ---
TMS Daily Progress Note Daily TMS Progress Note Date of Service: 09/20/23 Week #: 8 Treatment #(-): 38 PHQ-9 Pre-Treatment (-): 17 PHQ-9 Most Recent (05-11): 10 JEFF-7 Pre-Treatment (0-21): 3 JEFF-7 Most Recent (0-21): 3 Reviewed: TMS Tech Note Reviewed Verification: I have reviewed the TMS Pig Machine Supervisor Note and agree with the contents. The patient remains a candidate to continue TMS treatment per protocol. Assessment and Plan (1) Major depressive disorder, recurrent severe without psychotic features: Status: Acute Plan MT increase gradually patient has had some relapse over the past few weeks before continuation was approved
== END 2023-10-11 14:30 | disposition home or self-care (01) ==
LOC: HO.PTMS 14:00
PROVIDERS: Visit Provider Psychiatry & Neurology Psychiatry
DX: F33.2 Major depressive disorder, recurrent severe without psychotic features (principal)
CPT/HCPCS: 90867; 90868; 99215

== ENCOUNTER 2023-10-18 09:58 | Outpatient (AMB) | payer OTHER, SELFPAY ==
--- NOTE | 2023-10-18 09:59 | MHC.OFFVIS ---
Vital Signs 10/18/23 10:04 Height 5 ft 7.5 in Weight 171 lb 15.369 oz BMI 26.5 BP 82/64 L Blood Pressure Location Rt brachial Position Sitting Pulse 84 Pulse Source Pulse Oximeter Pulse Oximetry (%) 95 Oxygen Delivery Method Room Air Intake Visit Reasons: 6 month follow up Intake Note: Millicent presents in office today for a scheduled FUV and to discuss recall egd. Pt states that she has seen Nataliia previously for this condition and per her recommendation, the pt should have a second opinion to determine how to proceed. Pt still reporting having moderate to severe GERD sx. Dry cough, sore throat, reflux. Pt reports having abnormal bowel movements, intermittent constipation and diarrhea with foul/acidic smelling movements. Physician Chief Of Pathology Required: No Allergies acetaminophen [Percocet] Allergy (Unknown, Verified 10/18/23 09:59) Rash iodine Allergy (Unknown, Verified 10/18/23 09:59) Wheezing, rash oxycodone [Percocet] Allergy (Unknown, Verified 10/18/23 09:59) Wheezing, rash azithromycin Allergy (Verified 10/18/23 09:59) rash Percodan Allergy (Unknown, Uncoded 09/05/23 10:22) wheezing and rash HPI HPI 6 month follow up: Details: 58 f here for f/u RECAP: Pt was seeing Nataliia for GERD and constipation on linaclotide and nexium EGD/COlo 01/04 Endoscopy Findings: gastritis duodenitis esophagitis Colonoscopy Findings: polyp internal hemorrhoids Path: hyperplastic polyp and duodenitis INTERIM: BP low today taking lisinopril 5 mg also on aripiprazole she has coughing and tried adjusting bed, also worsening reflux she feels she is swallowing the wrong way she is also on ozempic and the abilify dose was increased but she feels the worsening reflux predates these EXAM: GENERAL: The patient is well developed and nontoxic. VITAL SIGNS:see workflow HEENT: Nonicteric sclerae, PERRLA, EOMI. Oropharynx clear. Moist mucous membranes. Conjunctivae appear well perfused. No thyroid mass. CHEST: Chest wall is nontender. HEART: Regular rate and rhythm without murmurs. LUNGS: Clear to auscultation bilaterally. ABDOMEN: Soft, positive bowel sounds, nontender, no organomegaly.no flank tenderness SKIN: No rash, no excessive bruising, petechiae, or purpura. NEUROLOGIC: Cranial nerves II-XII intact without motor/sensory deficit. Psych: normal affect A/P: 1/ Low BP, likely from combination of medication and low fluid intake 2/ worsening reflux, may be due to meds as above, PLAN: 1/EGD with almanzar 2/ trial of aciphex 3/ temp stop lisinopril, take gatorade zero --she will get a bP machine and monitor and let me know the numebrs on Saturday, might restart lisinopril lower dose, also f/u PCP [facility] Medical History Major depression, recurrent, full remission Major depressive disorder, recurrent severe without psychotic features History of open sigmoidectomy (~04/15/04) Trigger thumb of right hand (~1963) Migraine headache Annual physical exam Anxiety and depression Microalbuminuria Abnormal colonoscopy Hyperlipemia DM type 2 (diabetes mellitus, type 2) Dysuria Adhesive capsulitis of shoulder History of trigger finger Surgical History History of esophagogastroduodenoscopy (EGD) Hx of colonoscopy History of ankle surgery H/O parathyroidectomy History of sinus surgery S/P tonsillectomy History of 2 sections Family History Father No problems noted. Mother No problems noted. Paternal Grandmother Colon cancer Other Major depressive disorder, recurrent severe without psychotic features Mental health disorder Social History Housing: House Are you a primary residential caregiver to a significant other at home: No Do you presently have visiting nurse or other home services: No Alcohol intake: current Alcohol intake frequency: a few times a month Patient Tobacco Use Status: Never used Tobacco e-Cigarette/Vaping Use: Never Used service: No Current occupational status: retired Current occupation: retired-right handed Cognitive needs: No Hearing needs: No Vision needs: Yes Female Reproductive History Menstrual Age of Menarche: 11 Physical Exam Vital Signs: Last Vital Signs Pulse 84 10/18/23 10:04 BP 82/64 L 10/18/23 10:04 Pulse Ox 95 07/05/24 10:04 Oxygen Delivery Method Room Air 10/18/23 10:04 BMI result Body Mass Index 26.5 Assessment & Plan Assessment & Plan (1) Chronic GERD: Code(s): K21.9 - Gastro-esophageal reflux disease without esophagitis Category: Medical Plan: stop ozempic 1 week before egd--almanzar on PPI Medications: New rabeprazole 20 mg PO DAILY 30 tabs 3RF Coding Level of Care Code Est Pt Level 4 (60918) Diagnoses Chronic GERD K21.9
[2023-10-18 10:04] VITALS: BP 82/64; PULSE 84; O2SAT 95; BMI 26.5
== END 2023-10-18 10:32 | disposition home or self-care (01) ==
PROVIDERS: PCP Internal Medicine; Visit Provider Internal Medicine Gastroenterology
DX: K21.9 Gastro-esophageal reflux disease without esophagitis (principal)
CPT/HCPCS: 99214

== ENCOUNTER → 2023-10-18 09:58 | Outpatient (BNVA) | payer OTHER, SELFPAY | PROVIDERS: PCP Internal Medicine; Visit Provider Internal Medicine Gastroenterology | DX: K21.9 Gastro-esophageal reflux disease without esophagitis (principal) | CPT/HCPCS: 99212 ==

== ENCOUNTER 2023-12-06 11:14 | Outpatient (AMB) | payer OTHER, SELFPAY ==
--- NOTE | 2023-12-06 11:19 | A.OFFPC_ITS ---
Vital Signs 12/06/23 11:20 Height 5 ft 7.5 in Weight 167 lb BMI 25.8 BP 90/62 Blood Pressure Location Lt brachial Position Sitting Pulse 84 Pulse Source Pulse Oximeter Pulse Oximetry (%) 96 Oxygen Delivery Method Room Air Intake Visit Reasons: BP Intake Note: Pt is here today for a sick visit. Pt c/o fluctuating BP. Pt also c/o pain under her L shoulder blade. Allergies acetaminophen [Percocet] Allergy (Unknown, Verified 12/06/23 11:22) Rash iodine Allergy (Unknown, Verified 12/06/23 11:22) Wheezing, rash oxycodone [Percocet] Allergy (Unknown, Verified 12/06/23 11:22) Wheezing, rash azithromycin Allergy (Verified 12/06/23 11:22) rash Percodan Allergy (Unknown, Uncoded 12/06/23 11:22) wheezing and rash Medication List - Last Reconciled 12/06/23 by Francesca Magana MD aripiprazole 5 mg PO DAILY blood sugar diagnostic (Accu-Chek Guide test strips) As directed to test blood sugar once a day blood-glucose meter (Accu-Chek Guide Me Glucose Meter) As directed to test blood sugar once a day bupropion HCl XL 150 mg PO QAM cholecalciferol (vitamin D3) 25 mcg PO DAILY docusate sodium 100 mg PO BEDTIME esomeprazole magnesium 40 mg PO DAILY gabapentin 300 mg PO BEDTIME hydrocortisone 2.5% (Proctosol HC) 1 appl DC BID-QID PRN linaclotide (Linzess) 145 mcg PO DAILY lisinopril 2.5 mg PO DAILY loratadine 10 mg PO DAILY metformin 1,000 mg PO BID omega-3 fatty acids (Fish Oil) PO DAILY onabotulinumtoxinA (Botox) intradermal .every 12 weeks Ozempic (semaglutide) 0.5 mg (0.736 mL) subcut QWEEK NS rabeprazole 20 mg PO DAILY rimegepant (Nurtec ODT) 75 mg PO DAILY PRN rosuvastatin 20 mg PO BEDTIME sucralfate 10 mL PO BEDTIME topiramate 200 mg PO BEDTIME vortioxetine 40 mg (2 x 20 mg) PO DAILY Tobacco use date assessed: 12/06/23 Dental Screening Dental Screen Date: 09/05/23 HPI BP HPI Details Pt presents complaining of low blood pressure readings. She has been taking lisinopril for microalbuminuria but recently decrease the dose to 2.5 mg of because of low blood pressure and feeling tired. Patient complains of pain under left scapular during fast walking and dyspnea on exertion, for 2 months resolving after rest. Patient denies chest pain diaphoresis nausea vomiting left shoulder pain. Depression is stable on current medications and patient follows up with the Psychiatry [facility] Medical History Major depression, recurrent, full remission Major depressive disorder, recurrent severe without psychotic features History of open sigmoidectomy (~04/15/04) Trigger thumb of right hand (~1963) Migraine headache Annual physical exam Anxiety and depression Microalbuminuria Abnormal colonoscopy Hyperlipemia DM type 2 (diabetes mellitus, type 2) Dysuria Adhesive capsulitis of shoulder History of trigger finger Surgical History History of esophagogastroduodenoscopy (EGD) Hx of colonoscopy History of ankle surgery H/O parathyroidectomy History of sinus surgery S/P tonsillectomy History of 2 sections Family History Father No problems noted. Mother No problems noted. Paternal Grandmother Colon cancer Other Major depressive disorder, recurrent severe without psychotic features Mental health disorder Social History Housing: House Are you a primary memory care director to a significant other at home: No Do you presently have visiting nurse or other home services: No Alcohol intake: current Alcohol intake frequency: a few times a month Patient Tobacco Use Status: Never used Tobacco e-Cigarette/Vaping Use: Never Used service: No Current occupational status: retired Current occupation: retired-right handed Cognitive needs: No Hearing needs: No Vision needs: Yes Female Reproductive History Menstrual Age of Menarche: 11 Questionnaire PHQ-9 Over the last 2 weeks, how often have you been bothered by any of the following problems? 1. Little interest or pleasure in doing things: more than half the days 2. Feeling down, depressed, or hopeless: more than half the days 3. Trouble falling or staying asleep, or sleeping too much: several days 4. Feeling tired or having little energy: nearly every day 5. Poor appetite or overeating: several days 6. Feeling bad about yourself - or that you are a failure or have let yourself or your family down: several days 7. Trouble concentrating on things, such as reading the newspaper or watching television: several days 8. Moving or speaking so slowly that other people could have noticed. Or the opposite - being so fidgety or restless that you have been moving around a lot more than usual: several days 9. Thoughts that you would be better off or of hurting yourself in some way: not at all Total score: 12 Depression Screening Interpretation: Positive (Follows up with psychiatry and a therapist) Depression Screening Follow-up: Existing condition and In treatment Depression Screening Done: Yes 21039 - PHQ-9 Billing: Yes Source: Developed by Drs. Gee Keen, Prema Connolly, Sergio Vazquez and colleagues, with an educational hernan from [employer]. Thrive Questionnaire Date Thrive assessed: 12/06/23 I am a: Patient What is your living situation today?: I have a steady place to live Within the past 12 months, did the food you bought not last and you didn't have the money to get more?: Never true Within the past 12 months, did you worry whether your food would run out before you got money to buy more?: Never true Do you have trouble paying for medicines?: No Do you have trouble getting transportation to medical appointments?: No Do you have trouble paying your heating and electricity bill?: No Do you have trouble taking care of your child, family member or friend?: No Do you have trouble with day-to-day activities such as bathing, preparing meals, shopping, managing finances, etc.?: No Are you currently unemployed and looking for a job?: No Are you interested in more education?: No Please select the resources that you would like help with: None Currently or been in a relationship where the following occur: No concerns reported THRIVE Score: 0 AUDIT C Alcohol Use Questionnaire (AUDIT-C) 1. How often do you have a drink containing alcohol?: Monthly or less 2. How many drinks containing alcohol do you have on a typical day when you are drinking?: 1 or 2 3. How often do you have six or more drinks on one occasion?: Never Total Score: 1 JEFF-7 AMB Questionnaire JEFF-7 Date JEFF - 7 assessed: 12/06/23 Feeling nervous, anxious, or on edge: 0 = Not at all Not being able to stop or control worryin = Not at all Worrying too much about different things: 0 = Not at all Trouble relaxin = Not at all Being so restless that it is hard to sit still: 0 = Not at all Becoming easily annoyed or irritable: 0 = Not at all Feeling afraid as if something awful might happen: 0 = Not at all Total JEFF-7 score (0-4 normal; 5-9 mild; 10-14 moderate; 15-21 severe): 0 Source: Developed by Drs. Gee Keen, Prema Connolly, Sergio Vazquez and colleagues, with an educational hernan from [employer]. JEFF-7 Assessment Billing JEFF-7 Assessment Tool: JEFF-7 Assessment 92285 Review of Systems Const All systems reviewed & are unremarkable except as noted in HPI and below Card Reports no additional complaints Resp Reports no additional complaints GI Reports no additional complaints Physical exam (Primary Care) Vital Signs: Last Vital Signs Pulse 84 12/06/23 11:20 BP 90/62 12/06/23 11:20 Pulse Ox 96 12/06/23 11:20 Oxygen Delivery Method Room Air 12/06/23 11:20 BMI result Body Mass Index 25.8 Tobacco/Smoking Status: Tobacco use Status Tobacco use date assessed 12/06/23 12/06/23 11:24 Patient Tobacco Use Status Never used Tobacco 12/06/23 11:24 e-Cigarette/Vaping Use Never Used 12/06/23 11:24 PHQ-9: PHQ-9 Score PHQ-9: Total score 12 12/06/23 11:24 Depression Screening Interpretation: Positive (Follows up with psychiatry and a therapist) Depression Screening Follow-up: Existing condition and In treatment Thrive Assessment: Date of Thrive Assessment Date Thrive assessed 12/06/23 12/06/23 11:24 Currently or been in a relationship where the following occur: No concerns reported Const General: no acute distress HENMT Throat: Yes posterior oropharynx normal Neck Neck: Yes supple Resp Effort & Inspection: normal respiratory effort Auscultation: clear to auscultation bilaterally Cardio Rhythm: regular rhythm Heart sounds: S1 normal heart sound present and S2 normal heart sound present GI Inspection: Yes normal to inspection Palpation (GI): Soft to palpation Assessment and Plan Assessment & Plan (1) Anginal equivalent: Code(s): I20.89 - Other forms of angina pectoris Plan: EKG showed normal sinus rhythm no ST-T changes, Schedule a nuclear stress test to evaluate for ischemia. Patient was advised to discontinue lisinopril and urine microalbumin will be monitored. (2) DM type 2 (diabetes mellitus, type 2): Code(s): E11.9 - Type 2 diabetes mellitus without complications Plan: Continue current medications and ADA diet Orders: Orders CA stress test Today I20.89 - Other forms of angina pectoris NM cardiolite stress test Today I20.89 - Other forms of angina pectoris Medications: Changed From lisinopril 5 mg PO DAILY 90 tabs 1RF To lisinopril 2.5 mg PO DAILY Coding Level of Care Code Est Pt Level 4 (54468) Diagnoses Anginal equivalent I20.89 DM type 2 (diabetes mellitus, type 2) E11.9 Additional Codes JEFF-7 Assessment Billing - JEFF-7 Assessment Tool: JEFF-7 Assessment 54916 ([id number])
[2023-12-06 11:20] VITALS: BP 90/62; PULSE 84; O2SAT 96; BMI 25.8
== END 2023-12-06 12:15 | disposition home or self-care (01) ==
PROVIDERS: PCP Internal Medicine; Visit Provider Internal Medicine
DX: I20.89 Other forms of angina pectoris (principal); E11.9 Type 2 diabetes mellitus without complications
CPT/HCPCS: 99214

== ENCOUNTER → 2024-01-07 08:09 | Outpatient (REF) | payer OTHER, SELFPAY ==
--- NOTE | ~2024-01-07 | NM_ITS ---
Lexiscan Myocardial perfusion study Indication: Chest pain to evaluate for myocardial ischemia Technique: The patient was brought in for a Lexiscan perfusion study on 01/07/2024 and was injected 0.4 mg of Lexiscan intravenously. Within a minute of this injection 25 mCi of sestamibi was given intravenously. Images were obtained using the SPECT gamma camera interlaced with the gating device. Images were obtained in supine position. Resting perfusion study was performed on 01/09/2024. Patient was administered 25 mCi of sestamibi intravenously at rest. Images were then obtained in supine position. Images obtained without without CT attenuation. Total DLP 76 mGy-cm Images were processed with the software and compared side to side in short axis, horizontal long axis and vertical long axis views. Findings: The stress perfusion study showed nonattenuated images show mildly reduced uptake in the basal inferior septum of the LV myocardium. Remainder of the LV myocardium is normally perfused. Attenuation corrected images show normal uptake of radiotracer in all segments of the LV myocardium. The gated study shows normal LV systolic function with visually estimated LVEF of greater than 60%. LV cavity is normal in size. The gated study shows normal systolic wall thickening and contraction of segments. Resting study shows no change in perfusion pattern compared to stress perfusion study. Gating at rest reveals normal systolic wall motion with ejection fraction at 64%. The findings are consistent with normal myocardial perfusion. NM/NM cardiolite stress test Impression: 1. Myocardial perfusion imaging study shows normal myocardial perfusion 2. Gated LVEF is 64% 3. Transient ischemic dilatation not present Nondiagnostic changes on EKG. Electronically signed by: Smooth Ball MD 01/09/2024 04:26 PM EDT
--- NOTE | 2024-01-07 10:35 | CA_ITS ---
Acquisition Time: 2024-01-07 08:01:35 Total Exercise Time: 00:02:00 Test Indications: Chest Pain Medications: SEE H Protocol: LEXISCAN Max HR: 133 BPM 83% of Pred: 160 BPM Max BP: 124/080 mmHG Max Work Load: 1.0 METS Pharmacological stress test with Lexiscan injection while sitting, without shortness of breath, with 2/10 stabbing pain left back, without arrhythmias, with normotensive response to injection, with nondiagnoisitic EKGs. Aminophylline 75mg IVP given to reverse Lexiscan. Stabbing pain resolved in back. Nuclear images pending. Test reviewed with Dr Raza. Referred By: Francesca Magana Overread By: Michelle Gan
== END ==
LOC: HO.CARD 08:09
PROVIDERS: PCP Internal Medicine; Visit Provider Internal Medicine
DX: I20.89 Other forms of angina pectoris (principal)
CPT/HCPCS: 78452; 93017; A9500; J0280; J2785

== ENCOUNTER → 2024-01-07 10:35 | Outpatient (BNV) | payer OTHER, SELFPAY | PROVIDERS: PCP Internal Medicine; Visit Provider Nurse Practitioner | DX: R07.9 Chest pain, unspecified (principal) | CPT/HCPCS: 78452; 93016; 93018 ==

== ENCOUNTER 2024-02-17 14:09 | Outpatient (REF) | payer OTHER, SELFPAY ==
--- NOTE | ~2024-02-17 | MM_ITS ---
EXAMINATION: MM SCREENING DIGITAL BREAST TOMOSYNTHESIS, BILATERAL CLINICAL INFORMATION: Screening. Asymptomatic. COMPARISON: Mammography: Comparison is made with available priors TECHNIQUE: Digital breast mammography with tomosynthesis is performed in both the craniocaudal and mediolateral oblique views along with computer-aided detection (CAD). FINDINGS: There are scattered areas of fibroglandular density (ACR BI-RADS breast composition Category b). There are no significant masses, abnormal calcifications, or other abnormalities. MM/MM tomosynthesis screening BI IMPRESSION: No mammographic evidence of malignancy. ASSESSMENT: BI-RADS BI-RADS 1 - Negative RECOMMENDATION: Routine annual mammography screening. 1 year F/U This examination should not preclude the clinical evaluation of a suspicious palpable abnormality. This patient's information was entered into a reminder system with a target due date for their next mammogram. Electronically signed by: Karla Ramírez DO 02/26/2024 12:19 PM JONATHAN
== END 2024-02-17 14:10 | disposition home or self-care (01) ==
LOC: HO.MAMMO 14:09
PROVIDERS: PCP Internal Medicine; Visit Provider Internal Medicine
DX: Z12.31 Encounter for screening mammogram for malignant neoplasm of breast (principal)
CPT/HCPCS: 77063; 77067

== ENCOUNTER → 2024-02-17 14:15 | Outpatient (BNV) | payer OTHER, SELFPAY | PROVIDERS: PCP Internal Medicine; Visit Provider Internal Medicine | DX: Z12.31 Encounter for screening mammogram for malignant neoplasm of breast (principal) | CPT/HCPCS: 77063; 77067 ==

== ENCOUNTER 2024-02-25 10:18 | Day surgery (SDC) | payer OTHER, SELFPAY ==
[2024-02-25 11:01] VITALS: BMI 24.5
[2024-02-25 11:17] VITALS: BP 112/72; PULSE 75; RESP 18; TEMP 36.6; O2SAT 96
[2024-02-25 11:26] LABS: Glucose, Whole Blood 92 mg/dL (60-115)
--- NOTE | 2024-02-25 11:50 | MHC.SHP ---
Pre-Procedural Eval Section A - 24 Hr Update-Section A only Date of Service: 02/25/24 Section B - Complete if H&P > 30 days Chief Complaint: gerd, Relevant Family History (Specify if Yes): No Relevant Social History: None Present Medications: see Short Stay Collaborative assessment Medical History: Significant History ( Major depression, recurrent, full remission Major depressive disorder, recurrent severe without psychotic features History of open sigmoidectomy (~04/15/04) Trigger thumb of right hand (~1963) Migraine headache Annual physical exam Anxiety and depression Microalbuminuria Abnormal colonoscopy ) History of Previous Operations: Relevant previous surgery/procedure and date(s) (History of esophagogastroduodenoscopy (EGD) Hx of colonoscopy History of ankle surgery H/O parathyroidectomy History of sinus surgery S/P tonsillectomy History of 2 sections) Allergies: Allergies Allergy/AdvReac Type Severity Reaction Status Date / Time acetaminophen [Percocet] Allergy Unknown Rash Verified 02/25/24 10:58 iodine Allergy Unknown Wheezing, Verified 02/25/24 10:58 rash oxycodone [Percocet] Allergy Unknown Wheezing, Verified 02/25/24 10:58 rash azithromycin Allergy rash Verified 02/25/24 10:58 Percodan Allergy Unknown wheezing Uncoded 12/06/23 11:22 and rash Review of Systems Sugical H&P ROS: Negative: Constitution, Cardiovascular, Respiratory, Neurological, Psychiatric, Hem-Onc, Allergic/Immunologic, Gastrointestinal, Genitourinary, Musculoskeletal, Integumentary, Endocrine and Eyes/Ears/Nose/Throat Exam Surgical H&P Exam: Normal: HEENT, Normal: Heart, Normal: Lungs, Normal: Extremities, Normal: Abdomen, Normal: Skin and Normal: Neurological Plan Diagnosis/Plan: Unchanged I have reviewed the history and physical and performed a pertinent physical examination on my patient. No changes have occurred unless specified. Time Spent With Patient Time: Total time managing care of this patient today ____ minutes.
--- NOTE | 2024-02-25 12:02 | P.CONAN_ITS ---
HPI - Anesthesia Eval Consult details Narrative: 58 F for egd Anesthesia Pre-Procedure Meds Is the patient on any of the following meds?: GLP1/DPP4 If yes to any meds - educate patient: Pt education - increased risk of aspiratio n and/or euvolemic DKA and Pt education - possibility of cancelled proc at provider's discretion PMFSH Active Problems Active Problems: All Active Problems Anginal equivalent (Acute) Chronic GERD (Acute) Vitamin D deficiency (Acute) Major depressive disorder, recurrent severe without psychotic features (Acute) Overweight (Acute) Tick bite (Acute) Abdominal wall hernia (Acute) Abdominal pain (Acute) Colitis (Acute) Back pain (Acute) Bunion (Acute) Postmenopausal (Acute) Well woman exam (Acute) Annual physical exam (Acute) Anxiety and depression (Acute) Microalbuminuria (Acute) Hyperlipemia (Acute) DM type 2 (diabetes mellitus, type 2) (Acute) Dysuria (Acute) Adhesive capsulitis of shoulder (Acute) Past Medical History Medical History Exercise induced hypotension Major depression, recurrent, full remission Major depressive disorder, recurrent severe without psychotic features History of open sigmoidectomy (~04/15/04) Trigger thumb of right hand (~1963) Migraine headache Annual physical exam Anxiety and depression Microalbuminuria Abnormal colonoscopy Hyperlipemia DM type 2 (diabetes mellitus, type 2) Dysuria Adhesive capsulitis of shoulder History of trigger finger Family History Family History Father No problems noted. Mother No problems noted. Paternal Grandmother Colon cancer Other Major depressive disorder, recurrent severe without psychotic features Mental health disorder Family history of problems with anesthesia: No Surgical History Surgical History History of esophagogastroduodenoscopy (EGD) Hx of colonoscopy History of ankle surgery H/O parathyroidectomy History of sinus surgery S/P tonsillectomy History of 2 sections History of Problems with Anesthesia: No Social History Social History Housing: House Are you a primary live in caregiver to a significant other at home: No Do you presently have visiting nurse or other home services: No Alcohol intake: current Alcohol intake frequency: a few times a month Patient Tobacco Use Status: Never used Tobacco e-Cigarette/Vaping Use: Never Used Use of substances other than those prescribed or required for medical reasons: No Are you DNR?: No Advance Directives: No Advance Directives Information Provided: Yes Recently lost weight without trying: No service: No Current occupational status: retired Current occupation: retired-right handed Cognitive needs: No Hearing needs: No Vision needs: Yes Meds Allergies Allergy/AdvReac Type Severity Reaction Status Date / Time acetaminophen [Percocet] Allergy Unknown Rash Verified 02/25/24 10:58 iodine Allergy Unknown Wheezing, Verified 02/25/24 10:58 rash oxycodone [Percocet] Allergy Unknown Wheezing, Verified 02/25/24 10:58 rash azithromycin Allergy rash Verified 02/25/24 10:58 Percodan Allergy Unknown wheezing Uncoded 12/06/23 11:22 and rash Active Medications: Current Medications Lactated Ringer's (Lr) 1,000 mls @ 50 mls/hr IVCONT .Q20H RAE Home Medications ?Medication ?Instructions ?Recorded ?Confirmed ?Last Taken ?Type loratadine 10 mg capsule 10 mg PO DAILY 02/08/20 12/06/23 Unknown History onabotulinumtoxinA 200 unit intradermal .every 12 weeks 11/24/20 12/06/23 Unknown History solution for injection (Botox) rimegepant 75 mg disintegrating 75 mg PO DAILY PRN migraine 11/24/20 12/06/23 Unknown History tablet (Nurtec ODT) cholecalciferol (vitamin D3) 25 25 mcg PO DAILY 09/03/22 12/06/23 Unknown History mcg (1,000 unit) capsule omega-3 fatty acids [Fish Oil] PO DAILY 09/03/22 12/06/23 Unknown History sucralfate 100 mg/mL oral 10 ml PO BEDTIME 02/15/23 12/06/23 Unknown History suspension bupropion HCl 150 mg 24 hr tablet, 150 mg PO QAM 06/04/23 12/06/23 Unknown History extended release aripiprazole 5 mg tablet 5 mg PO DAILY 10/18/23 12/06/23 Unknown History Exam Height,Weight and Vital Signs: Height 5 ft 7.5 in Weight 159 lb Last Vital Signs Temp 97.9 F 02/25/24 11:17 Pulse 75 02/25/24 11:17 Resp 18 02/25/24 11:17 BP 112/72 02/25/24 11:17 Pulse Ox 96 02/25/24 11:17 O2 Del Method Room Air 02/25/24 11:17 Pertinent Lab Results Pertinent Lab Results: Laboratory Tests 02/25/24 11:15 POC Glucose 92 Airway Mallampati Class: II TM Dist: >3cm Neck ROM: Full Loose/Missing/Broken Teeth: Yes Assessment and Plan Assessment Anesthesia Assessment: Anesthesia Plan Discussed Final Anesthetic Review Family History of Problems with Anesthesia: No History of Problems with Anesthesia: No NPO: Yes ASA Class: III Final Preanesthetic Review: No Changes in Pt Med Stat, Meds/Allgs Chart Reviewed, Consent Obtained/Reviewed and Anes Risks/Benef Reviewed Patient Risk: Intermediate Procedure Risk: Low Anesthetic Plan Anesthetic Plan: MAC: Disposition: Standard PACU
--- NOTE | 2024-02-25 12:21 | W.PM.OPN ---
Operative Note Operative Note Date of Service: 02/25/24 Narrative: Procedure Description: EGD Indication: GERD and choking Anesthesia: MAC FLEXIBLE TRANSORAL UPPER GASTROINTESTINAL ENDOSCOPY UPPER ENDOSCOPY Consent: Indications for the procedure and potential complications of bleeding, perforation, reaction to medications and missed diagnosis were discussed with the patient and informed consent was obtained. Instrument: Olympus GIF H 190 J mid size upper endoscope Monitoring: Vital signs and clinical assessment, continuous EKG monitoring, Pulse oximetry, Carbon Dioxide monitoring and blood pressure monitoring were done throughout the procedure. Procedure: The patient was placed in the left lateral decubitis position and pre-procedure medications were administered and a bite block was placed. The endoscope was inserted into the mouth and advanced under direct vision to the third part of duodenum. A careful inspection was made as the upper endoscope was withdrawn including a retroflexed examination of the proximal stomach; Findings and interventions are described below. Findings: Larynx:normal Esophagus: GE junction at 37 cm, diaphragm hiatus at 37 cm, mild esophagitis noted at GEJ, PERES probe placed at 31 cm with initial pH 6.1. Balloon dilation done at UES due to choking, no tears seen. Patulous LES. Stomach: Patchy streaky erythematous mucosa. Biopsies were obtained. Grade 2 flap valve on retroflexed examination of the cardia. Duodenum: Patchy erythema thru out bulb and descending duodenum, bx taken Intervention: Biopsies as noted above, balloon dilation, PERES probe Impression/Findings: gastritis duodenitis mild esophagitis patulous GEJ PLAN: await PERES results GERD precautions
[2024-02-25 12:25] VITALS: BP 95/40; PULSE 67; RESP 16; TEMP 36.2; O2SAT 93
[2024-02-25 12:40] VITALS: BP 108/66; PULSE 75; RESP 16; O2SAT 96
[2024-02-25 12:55] VITALS: BP 116/70; PULSE 66; RESP 16; O2SAT 96
[2024-02-25 13:10] VITALS: BP 122/67; PULSE 68; RESP 16; O2SAT 96
== END 2024-02-25 13:58 | disposition home or self-care (01) ==
PROVIDERS: PCP Internal Medicine; Visit Provider Internal Medicine Gastroenterology
PROC: (CPT 43249; principal; 2024-02-25 12:20)
DX: K21.9 Gastro-esophageal reflux disease without esophagitis (principal); K22.2 Esophageal obstruction; K29.50 Unspecified chronic gastritis without bleeding; K20.80 Other esophagitis without bleeding; R05.8 Other specified cough; K44.9 Diaphragmatic hernia without obstruction or gangrene; E11.9 Type 2 diabetes mellitus without complications; E78.5 Hyperlipidemia, unspecified; F32.5 Major depressive disorder, single episode, in full remission; Z79.85 Long-term (current) use of injectable non-insulin antidiabetic drugs; Z79.899 Other long term (current) drug therapy; Z88.8 Allergy status to other drugs, medicaments and biological substances; Z91.041 Radiographic dye allergy status; Z88.1 Allergy status to other antibiotic agents; Z98.890 Other specified postprocedural states
CPT/HCPCS: 43249; 43239; 82947; 88305; 88313; 88342; C1726; J2704

== ENCOUNTER → 2024-02-25 10:18 | Outpatient (BNV) | payer OTHER, SELFPAY ==
--- NOTE | 2024-03-04 06:45 | A.OFFVIS_ITS ---
Intake Visit Reasons: gerd, Allergies acetaminophen [Percocet] Allergy (Unknown, Verified 02/25/24 10:58) Rash iodine Allergy (Unknown, Verified 02/25/24 10:58) Wheezing, rash oxycodone [Percocet] Allergy (Unknown, Verified 02/25/24 10:58) Wheezing, rash azithromycin Allergy (Verified 02/25/24 10:58) rash Percodan Allergy (Unknown, Uncoded 12/06/23 11:22) wheezing and rash PFSH Medical History (Updated 03/04/24 @ 06:56 by Claire Barajas MD) Chronic GERD Exercise induced hypotension Major depression, recurrent, full remission Major depressive disorder, recurrent severe without psychotic features History of open sigmoidectomy (~04/15/04) Trigger thumb of right hand (~1963) Migraine headache Annual physical exam Anxiety and depression Microalbuminuria Abnormal colonoscopy Hyperlipemia DM type 2 (diabetes mellitus, type 2) Dysuria Adhesive capsulitis of shoulder History of trigger finger Surgical History History of esophagogastroduodenoscopy (EGD) Hx of colonoscopy History of ankle surgery H/O parathyroidectomy History of sinus surgery S/P tonsillectomy History of 2 sections Family History Father No problems noted. Mother No problems noted. Paternal Grandmother Colon cancer Other Major depressive disorder, recurrent severe without psychotic features Mental health disorder Social History Housing: House Are you a primary infant caregiver to a significant other at home: No Do you presently have visiting nurse or other home services: No Alcohol intake: current Alcohol intake frequency: a few times a month Patient Tobacco Use Status: Never used Tobacco e-Cigarette/Vaping Use: Never Used service: No Current occupational status: retired Current occupation: retired-right handed Cognitive needs: No Hearing needs: No Vision needs: Yes Female Reproductive History Menstrual Age of Menarche: 11 Office Procedures AMB Capsule Endoscopy Procedure Notes: negative study, no significant reflux, demeeester score negative om both days full report with data to be uploaded Capsule Endoscopy CPT Code: 85257 - [facility] Assessment & Plan Assessment & Plan (1) Chronic GERD: Code(s): K21.9 - Gastro-esophageal reflux disease without esophagitis Category: Medical Plan: [facility]manzar Coding Level of Care Code Procedure Only Diagnoses Chronic GERD K21.9 CPT Codes AMB Capsule Endoscopy - Capsule Endoscopy CPT Code: 44622 - [facility] ([id number])
== END ==
PROVIDERS: PCP Internal Medicine; Visit Provider Internal Medicine Gastroenterology
DX: K21.9 Gastro-esophageal reflux disease without esophagitis (principal)
CPT/HCPCS: 43239; 43249; 91035

== ENCOUNTER 2024-03-04 11:06 | Outpatient (REF) | payer OTHER, SELFPAY ==
[2024-03-04 13:17] LABS: MANUAL DIFF FLAG NO
[2024-03-04 13:32] LABS: Basophils Absolute Auto 0.1 X10*3/uL (0.0-0.2); Basophils Percent Auto 0.9 % (0-2); Eosinophils Absolute Auto 0.1 X10*3/uL (0.0-0.4); Eosinophils Percent Auto 1.5 % (0-4); Hematocrit 39.6 % (37.0-47.0); Hemoglobin 13.2 g/dl (12.0-16.0); Imm Gran Abs Auto 0.02 X10*3/uL (0.00-0.03); Imm Gran Pct Auto 0.3 % (0.0-0.4); Lymphocytes Absolute Auto 1.8 X10*3/uL (1.2-4.9); Lymphocytes Percent Auto 26.6 % (20-40); Mean Corpuscular HGB Conc 33.3 g/dl (31.0-35.0); Mean Corpuscular Hemoglobin 30.8 pg (27.0-33.0); Mean Corpuscular Volume 92.5 fL (80.0-98.0); Mean Platelet Volume 10.1 fL (9.4-12.3); Monocytes Absolute Auto 0.5 X10*3/uL (0.1-1.2); Monocytes Percent Auto 7.3 % (2-11); Neutrophils Absolute Auto 4.3 x10*3/uL (2.0-8.3); Neutrophils Percent Auto 63.4 % (45-73); Platelet Count 245 X10*3/uL (160-400); Red Blood Count 4.28 X10*6/uL (4.20-5.50); Red Cell Distribution Width 12.6 % (11.0-16.0); White Blood Count 6.8 X10*3/uL (4.8-10.8)
[2024-03-04 13:42] LABS: Estimated Average Glucose 108 mg/dL; Hemoglobin A1C 123.4522 umol/L; Hemoglobin A1c % 5.4 % (<6.0); Total Hemoglobin (HGBA1C) 3498.7326 umol/L
[2024-03-04 13:55] LABS: Creatinine Urine 83.92 mg/dL; Microalbum/Creatinine Ratio Ur 9.5 ug/mg cr (<30)
[2024-03-04 14:01] LABS: Alanine Aminotransferase 23 U/L (0-31); Albumin Level 4.4 g/dL (3.5-5.0); Alkaline Phosphatase 55 U/L (39-117); Anion Gap 10 (12-20); Aspartate Amino Transferase 19 U/L (5-31); Bilirubin Total 0.5 mg/dL (0.0-1.0); Blood Urea Nitrogen 10 mg/dL (9-16); Calcium 9.5 mg/dL (8.4-10.2); Carbon Dioxide 27 mmol/L (22-29); Chloride 108 mmol/L (96-108); Cholesterol 140 mg/dL (<200); Estimated Glomerular Filt Rate > 60; Glucose Fasting 97 mg/dL (60-99); HDL Cholesterol 57 mg/dL (>40); LDL Cholesterol Calculated 56 mg/dL (<100); Sodium 141 mmol/L (135-145); Total Protein 6.6 g/dL (6.5-8.0); Triglycerides 135 mg/dL (<150)
[2024-03-04 14:30] LABS: TSH reflex Free T4 1.72 uIU/mL (0.32-4.0); Vitamin D 25-OH Total 102.6 ng/mL (>30)
== END 2024-03-04 11:07 | disposition home or self-care (01) ==
LOC: HO.HMGCLDS 11:06
PROVIDERS: PCP Internal Medicine; Visit Provider Internal Medicine
DX: E78.5 Hyperlipidemia, unspecified (principal); E11.9 Type 2 diabetes mellitus without complications; E55.9 Vitamin D deficiency, unspecified
CPT/HCPCS: 36415; 80053; 80061; 82043; 82306; 82570; 83036; 84443; 85025

== ENCOUNTER 2024-03-06 09:51 | Outpatient (AMB) | payer OTHER, SELFPAY ==
--- NOTE | 2024-03-06 10:01 | MHC.PC.OV ---
Vital Signs 03/06/24 10:02 Height 5 ft 7.5 in Weight 166 lb BMI 25.6 BP 110/66 Blood Pressure Location Lt brachial Position Sitting Pulse 75 Pulse Source Pulse Oximeter Pulse Oximetry (%) 97 Oxygen Delivery Method Room Air Intake Visit Reasons: 6 month follow up Intake Note: Pt is here today for 6 months follow up visit on labs. Allergies acetaminophen [Percocet] Allergy (Unknown, Verified 03/06/24 10:09) Rash iodine Allergy (Unknown, Verified 03/06/24 10:09) Wheezing, rash oxycodone [Percocet] Allergy (Unknown, Verified 03/06/24 10:09) Wheezing, rash azithromycin Allergy (Verified 03/06/24 10:09) rash Percodan Allergy (Unknown, Uncoded 03/06/24 10:09) wheezing and rash Medication List - Last Reconciled 03/06/24 by Francesca Magana MD aripiprazole 5 mg PO DAILY blood sugar diagnostic (Accu-Chek Guide test strips) As directed to test blood sugar once a day blood-glucose meter (Accu-Chek Guide Me Glucose Meter) As directed to test blood sugar once a day bupropion HCl XL 150 mg PO QAM cholecalciferol (vitamin D3) 25 mcg PO DAILY gabapentin 300 mg PO BEDTIME hydrocortisone 2.5% (Proctosol HC) 1 appl DC BID-QID PRN linaclotide (Linzess) 145 mcg PO DAILY loratadine 10 mg PO DAILY metformin 1,000 mg PO BID omega-3 fatty acids (Fish Oil) PO DAILY onabotulinumtoxinA (Botox) intradermal .every 12 weeks Ozempic (semaglutide) 0.5 mg (0.736 mL) subcut QWEEK NS rabeprazole 20 mg PO DAILY rimegepant (Nurtec ODT) 75 mg PO DAILY PRN rosuvastatin 20 mg PO BEDTIME sucralfate 10 mL PO BID topiramate 200 mg PO BEDTIME vortioxetine 40 mg (2 x 20 mg) PO DAILY Tobacco use date assessed: 03/06/24 Dental Screening Dental Screen Date: 09/05/23 HPI 6 month follow up HPI Details Patient presents for follow-up of type 2 diabetes hyperlipidemia. Bipolar disorder stable on current medications and patient follows up with psychiatrist and counselor. She had GI workup for chronic abdominal pain with EGD consistent with chronic inflammation and negative colonoscopy. [facility] Medical History (Updated 03/06/24 @ 15:27 by Francesca Magana MD) Major depression, recurrent, full remission Major depressive disorder, recurrent severe without psychotic features History of open sigmoidectomy (~04/15/04) Trigger thumb of right hand (~1963) Migraine headache Annual physical exam Microalbuminuria Abnormal colonoscopy Hyperlipemia DM type 2 (diabetes mellitus, type 2) Dysuria Adhesive capsulitis of shoulder History of trigger finger Surgical History (Updated 03/06/24 @ 15:28 by Francesca Magana MD) History of esophagogastroduodenoscopy (EGD) Hx of colonoscopy History of ankle surgery H/O parathyroidectomy History of sinus surgery S/P tonsillectomy History of 2 sections Family History Father No problems noted. Mother No problems noted. Paternal Grandmother Colon cancer Other Major depressive disorder, recurrent severe without psychotic features Mental health disorder Social History Housing: House Are you a primary wound care nurse to a significant other at home: No Do you presently have visiting nurse or other home services: No Alcohol intake: current Alcohol intake frequency: a few times a month Patient Tobacco Use Status: Never used Tobacco e-Cigarette/Vaping Use: Never Used service: No Current occupational status: retired Current occupation: retired-right handed Cognitive needs: No Hearing needs: No Vision needs: Yes Female Reproductive History Menstrual Age of Menarche: 11 Questionnaire Thrive Questionnaire Date Thrive assessed: 12/06/23 I am a: Patient What is your living situation today?: I have a steady place to live Within the past 12 months, did the food you bought not last and you didn't have the money to get more?: Never true Within the past 12 months, did you worry whether your food would run out before you got money to buy more?: Never true Do you have trouble paying for medicines?: No Do you have trouble getting transportation to medical appointments?: No Do you have trouble paying your heating and electricity bill?: No Do you have trouble taking care of your child, family member or friend?: No Do you have trouble with day-to-day activities such as bathing, preparing meals, shopping, managing finances, etc.?: No Are you currently unemployed and looking for a job?: No Are you interested in more education?: No Please select the resources that you would like help with: None Currently or been in a relationship where the following occur: No concerns reported THRIVE Score: 0 JEFF-7 AMB Questionnaire JEFF-7 Date JEFF - 7 assessed: 12/06/23 Source: Developed by Drs. Gee Keen, Prema Connolly, Sergio Vazquez and colleagues, with an educational hernan from [employer]. Review of Systems Const All systems reviewed & are unremarkable except as noted in HPI and below Eyes Reports no additional complaints ENT Reports no additional complaints Card Reports no additional complaints Resp Reports no additional complaints GI Reports no additional complaints Physical exam (Primary Care) Vital Signs: Last Vital Signs Pulse 75 03/06/24 10:02 BP 110/66 03/06/24 10:02 Pulse Ox 97 03/06/24 10:02 Oxygen Delivery Method Room Air 03/06/24 10:02 BMI result Body Mass Index 25.6 Tobacco/Smoking Status: Tobacco use Status Tobacco use date assessed 03/06/24 03/06/24 10:11 Patient Tobacco Use Status Never used Tobacco 03/06/24 10:02 e-Cigarette/Vaping Use Never Used 03/06/24 10:02 Thrive Assessment: Date of Thrive Assessment Date Thrive assessed 12/06/23 03/06/24 10:02 Currently or been in a relationship where the following occur: No concerns reported Const General: no acute distress HENMT Head: Yes normal to inspection Mouth: Normal oral and palatal mucosa present Eyes General: appearance normal, both eyes and all related structures Resp Effort & Inspection: normal respiratory effort Auscultation: clear to auscultation bilaterally Cardio Rhythm: regular rhythm Heart sounds: S1 normal heart sound present and S2 normal heart sound present GI Inspection: Yes normal to inspection Palpation (GI): Soft to palpation Percussion: Yes normal to percussion Auscultation: normal bowel sounds Coding Level of Care Code Est Pt Level 4 (50422) Diagnoses Major depressive disorder, recurrent severe without psychotic features F33.2 GERD (gastroesophageal reflux disease) K21.9 DM type 2 (diabetes mellitus, type 2) E11.9 Hyperlipemia E78.5 History of esophagogastroduodenoscopy (EGD) Z98.890 Assessment & Plan Assessment & Plan (1) Major depressive disorder, recurrent severe without psychotic features: Comment: Patient is established with psychiatrist and therapist Code(s): F33.2 - Major depressive disorder, recurrent severe without psychotic features Category: Medical Plan: A follow-up with psychiatrist and therapist continue current medications (2) GERD (gastroesophageal reflux disease): Comment: EGD 02/2024 chronic inflammation, capsule endoscopy f/u Dr. Barajas Code(s): K21.9 - Gastro-esophageal reflux disease without esophagitis Category: Medical Plan: Follow-up with GI (3) DM type 2 (diabetes mellitus, type 2): Code(s): E11.9 - Type 2 diabetes mellitus without complications Category: Medical Plan: A1c is 5.4 and patient lost 20 lb on Ozempic. She was advised to decrease metformin to 1000 mg once a day only. Follow-up in 6 months with fasting labs before (4) Hyperlipemia: Code(s): E78.5 - Hyperlipidemia, unspecified Category: Medical Plan: Continue statin (5) History of esophagogastroduodenoscopy (EGD): Comment: 12.20.2021 [facility] . 02/2024 negative chronic inflammation duodenum and stomach, capsule endoscopy Code(s): Z98.890 - Other specified postprocedural states Category: Surgical Plan: Follow-up with GI Orders: Orders Microalbumin, Random (w Creat) 6 Months E55.9 - Vitamin D deficiency, unspecified Hemoglobin A1c 6 Months E55.9 - Vitamin D deficiency, unspecified Comprehensive [place]. Panel Fast 6 Months E55.9 - Vitamin D deficiency, unspecified Lipid Panel 6 Months E55.9 - Vitamin D deficiency, unspecified Complete Blood Count Auto Diff 6 Months E55.9 - Vitamin D deficiency, unspecified Vitamin D 25-OH Total 6 Months E55.9 - Vitamin D deficiency, unspecified Medications: Changed From metformin 1,000 mg PO BID 180 tabs 3RF To metformin 1,000 mg PO .qd 90 tabs 3RF
[2024-03-06 10:02] VITALS: BP 110/66; PULSE 75; O2SAT 97; BMI 25.6
== END 2024-03-06 10:59 | disposition home or self-care (01) ==
PROVIDERS: PCP Internal Medicine; Visit Provider Internal Medicine
DX: F33.2 Major depressive disorder, recurrent severe without psychotic features (principal); K21.9 Gastro-esophageal reflux disease without esophagitis; E11.9 Type 2 diabetes mellitus without complications; E78.5 Hyperlipidemia, unspecified; Z98.890 Other specified postprocedural states

== ENCOUNTER → 2024-03-06 09:51 | Outpatient (BNVA) | payer OTHER, SELFPAY | PROVIDERS: PCP Internal Medicine; Visit Provider Internal Medicine | DX: F33.2 Major depressive disorder, recurrent severe without psychotic features (principal); K21.9 Gastro-esophageal reflux disease without esophagitis; E11.9 Type 2 diabetes mellitus without complications; E78.5 Hyperlipidemia, unspecified; Z98.890 Other specified postprocedural states | CPT/HCPCS: 99212 ==

== ENCOUNTER 2024-03-16 10:12 | Outpatient (REF) | payer OTHER, SELFPAY ==
[2024-03-17 15:01] LABS: H Pylori Breath Test Negative (Negative)
[2024-03-17 19:34] LABS: Transglutaminase Ab IgG <1.0 U/mL; Transglutaminase IgA <1.0 U/mL
== END 2024-03-16 10:13 | disposition home or self-care (01) ==
LOC: HO.LAB 10:12
PROVIDERS: PCP Internal Medicine; Visit Provider Internal Medicine Gastroenterology
DX: K21.9 Gastro-esophageal reflux disease without esophagitis (principal); R10.33 Periumbilical pain; G89.29 Other chronic pain; R10.31 Right lower quadrant pain
CPT/HCPCS: 36415; 83013; 86364; 99212

== ENCOUNTER 2024-03-16 10:12 | Outpatient (AMB) | payer OTHER, SELFPAY ==
--- NOTE | 2024-03-16 10:18 | A.OFFVIS_ITS ---
Vital Signs 03/16/24 10:20 Height 5 ft 7.5 in Weight 160 lb 14.999 oz BMI 24.8 BP 145/69 H Blood Pressure Location Lt brachial Position Sitting Pulse 79 Intake Visit Reasons: S/P EGD Peres; Dr. butler Intake Note: Millicent presents in the office as a follow up EGD. 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 butler: Details: 58 f here for f/u RECAP: Pt was seeing Nataliia for GERD and constipation on linaclotide and nexium EGD/COlo 01/04 Endoscopy Findings: gastritis duodenitis esophagitis Colonoscopy Findings: polyp internal hemorrhoids Path: hyperplastic polyp and duodenitis EGD: 02/25/24 gastritis duodenitis mild esophagitis patulous GEJ PERES: negative INTERIM: she is felling better since dilation no nausea no abdominal pain reviewed EGD and path [facility] EXAM: GENERAL: The patient is well developed and nontoxic. VITAL SIGNS:see workflow HEENT: Nonicteric sclerae, PERRLA, EOMI. Oropharynx clear. Moist mucous membranes. Conjunctivae appear well perfused. No thyroid mass. CHEST: Chest wall is nontender. HEART: Regular rate and rhythm without murmurs. LUNGS: Clear to auscultation bilaterally. ABDOMEN: Soft, positive bowel sounds, nontender, no organomegaly.no flank tenderness SKIN: No rash, no excessive bruising, petechiae, or purpura. NEUROLOGIC: Cranial nerves II-XII intact without motor/sensory deficit. Psych: normal affect A/P: 1/ Neg peres but path and EGD pos for significant acid damage, will go with the EGD and path findings PLAN: 1/ cont with aciphex and repeat EGD maybe in 1 yr, discussed options such as linx, niessen and ART< wants to hold 2/ take MV and vit D 3/ check celiac serology and H pylori PFSH Medical History (Updated 03/06/24 @ 15:27 by Francesca Magana MD) Major depression, recurrent, full remission Major depressive disorder, recurrent severe without psychotic features History of open sigmoidectomy (~04/15/04) Trigger thumb of right hand (~1963) Migraine headache Annual physical exam Microalbuminuria Abnormal colonoscopy Hyperlipemia DM type 2 (diabetes mellitus, type 2) Dysuria Adhesive capsulitis of shoulder History of trigger finger Surgical History (Updated 03/06/24 @ 15:28 by Francesca Magana MD) History of esophagogastroduodenoscopy (EGD) Hx of colonoscopy History of ankle surgery H/O parathyroidectomy History of sinus surgery S/P tonsillectomy History of 2 sections Family History Father No problems noted. Mother No problems noted. Paternal Grandmother Colon cancer Other Major depressive disorder, recurrent severe without psychotic features Mental health disorder Social History Housing: House Are you a primary career technical education instructor to a significant other at home: No Do you presently have visiting nurse or other home services: No Alcohol intake: current Alcohol intake frequency: a few times a month Patient Tobacco Use Status: Never used Tobacco e-Cigarette/Vaping Use: Never Used service: No Current occupational status: retired Current occupation: retired-right handed Cognitive needs: No Hearing needs: No Vision needs: Yes Female Reproductive History Menstrual Age of Menarche: 11 Physical Exam Vital Signs: Last Vital Signs Pulse 79 03/16/24 10:20 BP 145/69 H 03/16/24 10:20 BMI result Body Mass Index 24.8 Assessment & Plan Assessment & Plan (1) GERD (gastroesophageal reflux disease): Comment: EGD 02/2024 chronic inflammation, capsule endoscopy f/u Dr. Butler Code(s): K21.9 - Gastro-esophageal reflux disease without esophagitis Category: Medical Plan: see above Orders: Orders H Pylori Breath Test Today K21.9 - Gastro-esophageal reflux disease without esophagitis, R10.31 - Right lower quadrant pain Transglutaminase Ab IgG Today G89.29 - Other chronic pain, K21.9 - Gastro- esophageal reflux disease without esophagitis, R10.33 - Periumbilical pain Transglutaminase IgA Today K21.9 - Gastro-esophageal reflux disease without esophagitis Coding Level of Care Code Est Pt Level 3 (57720) Diagnoses GERD (gastroesophageal reflux disease) K21.9
[2024-03-16 10:20] VITALS: BP 145/69; PULSE 79; BMI 24.8
== END 2024-03-16 10:54 | disposition home or self-care (01) ==
PROVIDERS: PCP Internal Medicine; Visit Provider Internal Medicine Gastroenterology
DX: K21.9 Gastro-esophageal reflux disease without esophagitis (principal)
CPT/HCPCS: 99213

== ENCOUNTER 2024-03-23 11:33 | Outpatient (AMB) | payer OTHER, SELFPAY ==
--- NOTE | 2024-03-23 11:56 | MHC.OFFVIS ---
Vital Signs 03/23/24 12:07 Height 5 ft 7.5 in Weight 166 lb BMI 25.6 BP 106/78 Intake Visit Reasons: Annual Behavioral Modification Assistant: Behavioral Modification Assistant Present (Rekha) Allergies acetaminophen [Percocet] Allergy (Unknown, Verified 03/23/24 11:57) Rash iodine Allergy (Unknown, Verified 03/23/24 11:57) Wheezing, rash oxycodone [Percocet] Allergy (Unknown, Verified 03/23/24 11:57) Wheezing, rash azithromycin Allergy (Verified 03/23/24 11:57) rash Percodan Allergy (Unknown, Uncoded 03/16/24 10:21) wheezing and rash HPI Comments Details: Presenting for annual exam. No complaints. Last Pap/HPV was negative in 01/04 Last Mammogram was BI-RADS 1 in 03/08 Last Colonoscopy was in 01/04, the recommendation was to repeat in 3-5 years [facility] Medical History Major depression, recurrent, full remission Major depressive disorder, recurrent severe without psychotic features History of open sigmoidectomy (~04/15/04) Trigger thumb of right hand (~1963) Migraine headache Annual physical exam Microalbuminuria Abnormal colonoscopy Hyperlipemia DM type 2 (diabetes mellitus, type 2) Dysuria Adhesive capsulitis of shoulder History of trigger finger Surgical History History of esophagogastroduodenoscopy (EGD) Hx of colonoscopy History of ankle surgery H/O parathyroidectomy History of sinus surgery S/P tonsillectomy History of 2 sections Family History Father No problems noted. Mother No problems noted. Paternal Grandmother Colon cancer Other Major depressive disorder, recurrent severe without psychotic features Mental health disorder Social History Housing: House Are you a primary transitional care nurse to a significant other at home: No Do you presently have visiting nurse or other home services: No Alcohol intake: current Alcohol intake frequency: a few times a month Patient Tobacco Use Status: Never used Tobacco e-Cigarette/Vaping Use: Never Used service: No Current occupational status: retired Current occupation: retired-right handed Cognitive needs: No Hearing needs: No Vision needs: Yes Female Reproductive History Menstrual Age of Menarche: 11 Total pregnancies: 4 Full term: 2 Ab spontaneous: 2 Date of last pap smear: 12/19/21 (negative pap smear negative hpv) Date of Mammogram: 02/17/24 (bi rad 1) Date of last Bone Density Screenin04/03/22 Review of Systems Const All systems reviewed & are unremarkable except as noted in HPI and below Card Reports as per HPI Resp Reports as per HPI GI Reports as per HPI and Reports no additional complaints Reports as per HPI Physical Exam Vital Signs: Last Vital Signs BP 106/78 03/23/24 12:07 Const General: cooperative, healthy appearing and comfortable Chest Chest palpation & inspection: normal inspection of the chest and normal palpation of entire chest wall Breast/axilla inspection: normal inspection of the breasts and normal inspection of the axillae Breast/axilla palpation: normal palpation of the breasts, normal palpation of the axillae and no axillary lymphadenopathy Resp Effort & Inspection: normal respiratory effort Auscultation: clear to auscultation bilaterally Percussion: percussion normal Cardio Palpation: normal PMI Rate: regular rate Rhythm: regular rhythm Heart sounds: no murmurs and no rubs Peripheral pulses: Peripheral pulses 2+ throughout GI Inspection: Yes normal to inspection Palpation (GI): Soft to palpation, nontender, no guarding, not rigid and No hepatosplenomegaly present Percussion: Yes normal to percussion Auscultation: normal bowel sounds Rectal Exam - Female: deferred General: Yes bladder normal to palpation External Female Exam: No lesion Speculum Exam - Vagina: normal appearance of the vagina, normal palpation, normal vaginal discharge and not erythematous Speculum Exam - Cervix: normal appearance of the cervix and normal palpation Bimanual exam- vagina & uterus: normal bimanual exam, normal palpation, uterine size normal, bladder normal to palpation, consistency normal and normal palpation Bimanual Exam- Adnexa, other: normal adnexae, no masses and no tenderness Assessment & Plan Assessment & Plan (1) Well woman exam: Code(s): Z01.419 - Encounter for gynecological examination (general) (routine) without abnormal findings Category: Medical Plan: Co testing not indicated this year. Counseled the patient about the recommended dietary allowance of 1200 mg of Calcium & 600 IU of vitamin D. Instructions given the patient to schedule next screening Mammogram in 10/06. The patient was instructed to perform monthly self-breast exams and schedule annual exam in a year. All questions answered and the patient verbalized understanding. Coding Level of Care Code Est Pt Prev Care 40-64y(43199) Diagnoses Well woman exam Z01.419
[2024-03-23 12:07] VITALS: BP 106/78; BMI 25.6
== END 2024-03-23 12:17 | disposition home or self-care (01) ==
LOC: HO.HWS 11:33
PROVIDERS: PCP Internal Medicine; Visit Provider Obstetrics & Gynecology
DX: Z01.419 Encounter for gynecological examination (general) (routine) without abnormal findings (principal)
CPT/HCPCS: 99396

== ENCOUNTER → 2024-03-23 11:33 | Outpatient (BNVA) | payer OTHER, SELFPAY | PROVIDERS: PCP Internal Medicine; Visit Provider Obstetrics & Gynecology | DX: Z01.419 Encounter for gynecological examination (general) (routine) without abnormal findings (principal) | CPT/HCPCS: 99396 ==

== ENCOUNTER 2024-09-02 09:08 | Outpatient (REF) | payer OTHER, SELFPAY ==
[2024-09-02 10:06] LABS: MANUAL DIFF FLAG NO
[2024-09-02 10:11] LABS: Basophils Absolute Auto 0.1 X10*3/uL (0.0-0.2); Basophils Percent Auto 0.9 % (0-2); Eosinophils Absolute Auto 0.1 X10*3/uL (0.0-0.4); Eosinophils Percent Auto 1.9 % (0-4); Hematocrit 38.5 % (37.0-47.0); Hemoglobin 12.6 g/dl (12.0-16.0); Imm Gran Abs Auto 0.01 X10*3/uL (0.00-0.03); Imm Gran Pct Auto 0.2 % (0.0-0.4); Lymphocytes Absolute Auto 1.7 X10*3/uL (1.2-4.9); Lymphocytes Percent Auto 31.6 % (20-40); Mean Corpuscular HGB Conc 32.7 g/dl (31.0-35.0); Mean Corpuscular Hemoglobin 30.4 pg (27.0-33.0); Mean Platelet Volume 10.1 fL (9.4-12.3); Monocytes Absolute Auto 0.5 X10*3/uL (0.1-1.2); Monocytes Percent Auto 8.4 % (2-11); Neutrophils Absolute Auto 3.1 x10*3/uL (2.0-8.3); Platelet Count 211 X10*3/uL (160-400); Red Blood Count 4.14 X10*6/uL (4.20-5.50); Red Cell Distribution Width 12.6 % (11.0-16.0); White Blood Count 5.4 X10*3/uL (4.8-10.8)
[2024-09-02 10:22] LABS: Estimated Average Glucose 111 mg/dL; Hemoglobin A1C 121.3959 umol/L; Hemoglobin A1c % 5.5 % (<6.0); Total Hemoglobin (HGBA1C) 3314.6869 umol/L
[2024-09-02 11:02] LABS: Creatinine Urine 55.56 mg/dL; Microalbum/Creatinine Ratio Ur 25.1 ug/mg cr (<30)
[2024-09-02 11:43] LABS: Alanine Aminotransferase 35 U/L (0-31); Albumin Level 4.4 g/dL (3.5-5.0); Alkaline Phosphatase 50 U/L (39-117); Anion Gap 9 (12-20); Aspartate Amino Transferase 24 U/L (5-31); Bilirubin Total 0.7 mg/dL (0.0-1.0); Blood Urea Nitrogen 10 mg/dL (9-16); Calcium 9.5 mg/dL (8.4-10.2); Carbon Dioxide 27 mmol/L (22-29); Chloride 109 mmol/L (96-108); Cholesterol 113 mg/dL (<200); Estimated Glomerular Filt Rate > 60; Glucose Fasting 107 mg/dL (60-99); HDL Cholesterol 45 mg/dL (>40); LDL Cholesterol Calculated 45 mg/dL (<100); Potassium 3.4 mmol/L (3.3-5.1); Sodium 142 mmol/L (135-145); Total Protein 6.4 g/dL (6.5-8.0); Triglycerides 119 mg/dL (<150)
[2024-09-02 11:59] LABS: Vitamin D 25-OH Total 79.5 ng/mL (>30)
== END 2024-09-02 09:09 | disposition home or self-care (01) ==
LOC: HO.HMGCLDS 09:08
PROVIDERS: PCP Internal Medicine; Visit Provider Internal Medicine
DX: E55.9 Vitamin D deficiency, unspecified (principal)
CPT/HCPCS: 36415; 80053; 80061; 82043; 82306; 82570; 83036; 85025

== ENCOUNTER 2024-09-09 09:56 | Outpatient (AMB) | payer OTHER, SELFPAY ==
[2024-09-09 10:33] VITALS: BP 110/70; PULSE 76; RESP 18; TEMP 36.8; O2SAT 96; BMI 22.7
--- NOTE | 2024-09-09 10:33 | MHC.PC.OV ---
Vital Signs 09/09/24 10:33 Height 5 ft 7.5 in Weight 147 lb BMI 22.7 BP 110/70 Blood Pressure Location Lt brachial Position Sitting Respiration 18 Pulse 76 Pulse Source Pulse Oximeter Temp 98.3 F Temp Source Oral Pulse Oximetry (%) 96 Oxygen Delivery Method Room Air Intake Visit Reasons: Annual PE Intake Note: Pt is here today for PE. Allergies acetaminophen [Percocet] Allergy (Unknown, Verified 09/09/24 10:41) Rash iodine Allergy (Unknown, Verified 09/09/24 10:41) Wheezing, rash oxycodone [Percocet] Allergy (Unknown, Verified 09/09/24 10:41) Wheezing, rash azithromycin Allergy (Verified 09/09/24 10:41) rash Percodan Allergy (Unknown, Uncoded 09/09/24 10:41) wheezing and rash Medication List - Last Reconciled 09/09/24 by Francesca Magana MD blood sugar diagnostic (Accu-Chek Guide test strips) As directed to test blood sugar once a day blood-glucose meter (Accu-Chek Guide Me Glucose Meter) As directed to test blood sugar once a day cholecalciferol (vitamin D3) 25 mcg PO DAILY gabapentin 300 mg PO BEDTIME hydrocortisone 2.5% (Proctosol HC) 1 appl MS BID-QID PRN linaclotide (Linzess) 145 mcg PO DAILY loratadine 10 mg PO DAILY metformin 1,000 mg PO .qd omega-3 fatty acids (Fish Oil) PO DAILY onabotulinumtoxinA (Botox) intradermal .every 12 weeks Ozempic (semaglutide) 0.5 mg (0.736 mL) subcut QWEEK NS rabeprazole 20 mg PO DAILY rimegepant (Nurtec ODT) 75 mg PO DAILY PRN rosuvastatin 20 mg PO BEDTIME sucralfate 10 mL PO BID topiramate 200 mg PO BEDTIME vortioxetine 40 mg (2 x 20 mg) PO DAILY Tobacco use date assessed: 09/09/24 Dental Screening Dental Screen Date: 09/09/24 Did you have a dental visit in the last 12 months?: Yes Did you have a dental problem in the last 6 months where you did not have access to dental care?: No Was dental information given to patient?: Patient has dentist HPI Annual PE HPI Details Patient presents for physical PFSH Medical History Major depression, recurrent, full remission Major depressive disorder, recurrent severe without psychotic features History of open sigmoidectomy (~04/15/04) Trigger thumb of right hand (~1963) Migraine headache Annual physical exam Microalbuminuria Abnormal colonoscopy Hyperlipemia DM type 2 (diabetes mellitus, type 2) Dysuria Adhesive capsulitis of shoulder History of trigger finger Surgical History History of esophagogastroduodenoscopy (EGD) Hx of colonoscopy History of ankle surgery H/O parathyroidectomy History of sinus surgery S/P tonsillectomy History of 2 sections Family History Father No problems noted. Mother No problems noted. Paternal Grandmother Colon cancer Other Major depressive disorder, recurrent severe without psychotic features Mental health disorder Social History Housing: House Are you a primary respiratory care instructor to a significant other at home: No Do you presently have visiting nurse or other home services: No Alcohol intake: current Alcohol intake frequency: a few times a month Patient Tobacco Use Status: Never used Tobacco e-Cigarette/Vaping Use: Never Used service: No Current occupational status: retired Current occupation: retired-right handed Cognitive needs: No Hearing needs: No Vision needs: Yes Female Reproductive History Menstrual Age of Menarche: 11 Questionnaire PHQ-9 Over the last 2 weeks, how often have you been bothered by any of the following problems? 1. Little interest or pleasure in doing things: several days 2. Feeling down, depressed, or hopeless: several days 3. Trouble falling or staying asleep, or sleeping too much: several days 4. Feeling tired or having little energy: several days 5. Poor appetite or overeating: several days 6. Feeling bad about yourself - or that you are a failure or have let yourself or your family down: several days 7. Trouble concentrating on things, such as reading the newspaper or watching television: several days 8. Moving or speaking so slowly that other people could have noticed. Or the opposite - being so fidgety or restless that you have been moving around a lot more than usual: more than half the days 9. Thoughts that you would be better off or of hurting yourself in some way: not at all Total score: 9 Depression Screening Interpretation: Positive (Patient is established with a counselor and psychiatrist) Depression Screening Follow-up: Existing condition and In treatment Depression Screening Done: Yes 39692 - PHQ-9 Billing: Yes Source: Developed by Drs. Gee Keen, Prema Connolly, Sergio Vazquez and colleagues, with an educational hernan from [employer]. Thrive Questionnaire Date Thrive assessed: 09/09/24 I am a: Patient What is your living situation today?: I have a steady place to live Within the past 12 months, did the food you bought not last and you didn't have the money to get more?: Never true Within the past 12 months, did you worry whether your food would run out before you got money to buy more?: Never true Do you have trouble paying for medicines?: No Do you have trouble getting transportation to medical appointments?: No Do you have trouble paying your heating and electricity bill?: No Do you have trouble taking care of your child, family member or friend?: No Do you have trouble with day-to-day activities such as bathing, preparing meals, shopping, managing finances, etc.?: No Are you currently unemployed and looking for a job?: No Are you interested in more education?: No Please select the resources that you would like help with: None Currently or been in a relationship where the following occur: No concerns reported THRIVE Score: 0 AUDIT C Alcohol Use Questionnaire (AUDIT-C) 1. How often do you have a drink containing alcohol?: Monthly or less 2. How many drinks containing alcohol do you have on a typical day when you are drinking?: 1 or 2 3. How often do you have six or more drinks on one occasion?: Never Total Score: 1 JEFF-7 AMB Questionnaire JEFF-7 Date JEFF - 7 assessed: 09/09/24 Feeling nervous, anxious, or on edge: 1 = Several days Not being able to stop or control worryin = Several days Worrying too much about different things: 1 = Several days Trouble relaxin = Several days Being so restless that it is hard to sit still: 1 = Several days Becoming easily annoyed or irritable: 0 = Not at all Feeling afraid as if something awful might happen: 1 = Several days Total JEFF-7 score (0-4 normal; 5-9 mild; 10-14 moderate; 15-21 severe): 6 Source: Developed by Drs. Gee Keen, Prema Connolly, Sergio Vazquez and colleagues, with an educational hernan from [employer]. JEFF-7 Assessment Billing JEFF-7 Assessment Tool: JEFF-7 Assessment 37076 Review of Systems Const All systems reviewed & are unremarkable except as noted in HPI and below Eyes Reports no additional complaints ENT Reports no additional complaints Card Reports no additional complaints Resp Reports no additional complaints GI Reports no additional complaints Reports no additional complaints Physical exam (Primary Care) Vital Signs: Last Vital Signs Temp 98.3 F 09/09/24 10:33 Pulse 76 09/09/24 10:33 Resp 18 09/09/24 10:33 BP 110/70 09/09/24 10:33 Pulse Ox 96 09/09/24 10:33 Oxygen Delivery Method Room Air 09/09/24 10:33 BMI result Body Mass Index 22.7 Tobacco/Smoking Status: Tobacco use Status Tobacco use date assessed 09/09/24 09/09/24 10:43 Patient Tobacco Use Status Never used Tobacco 09/09/24 10:43 e-Cigarette/Vaping Use Never Used 09/09/24 10:34 PHQ-9: PHQ-9 Score PHQ-9: Total score 9 09/09/24 11:17 Depression Screening Interpretation: Positive (Patient is established with a counselor and psychiatrist) Depression Screening Follow-up: Existing condition and In treatment Thrive Assessment: Date of Thrive Assessment Date Thrive assessed 09/09/24 09/09/24 10:45 Currently or been in a relationship where the following occur: No concerns reported Const General: no acute distress HENMT Head: Yes normal to inspection Ears: TM's normal bilaterally Face and sinus: Yes normal facial exam Mouth: Normal oral and palatal mucosa present Throat: Yes posterior oropharynx normal Eyes General: appearance normal, both eyes and all related structures Neck Neck: Yes no lymphadenopathy and Yes supple Resp Effort & Inspection: normal respiratory effort Auscultation: clear to auscultation bilaterally Cardio Rhythm: regular rhythm Heart sounds: S1 normal heart sound present and S2 normal heart sound present GI Inspection: Yes normal to inspection Palpation (GI): Soft to palpation Percussion: Yes normal to percussion Auscultation: normal bowel sounds Coding Level of Care Code Est Pt Prev Care 40-64y(62025) Diagnoses Major depressive disorder, recurrent severe without psychotic features F33.2 DM type 2 (diabetes mellitus, type 2) E11.9 Hyperlipemia E78.5 Annual physical exam Z00.00 Additional Codes JEFF-7 Assessment Billing - JEFF-7 Assessment Tool: JEFF-7 Assessment 89896 ([id number]) PHQ-9 - 99775 - PHQ-9 Billing: Yes ([id number]) Assessment & Plan Assessment & Plan (1) Major depressive disorder, recurrent severe without psychotic features: Comment: Patient is established with psychiatrist and therapist Code(s): F33.2 - Major depressive disorder, recurrent severe without psychotic features Category: Medical Plan: Continue current medication follow-up with psychiatry (2) DM type 2 (diabetes mellitus, type 2): Code(s): E11.9 - Type 2 diabetes mellitus without complications Category: Medical Plan: A1c is 5.6. Patient will stop metformin and continue Ozempic . ADA diet regular physical activity follow-up in 3 months with a fasting labs before (3) Hyperlipemia: Code(s): E78.5 - Hyperlipidemia, unspecified Category: Medical Plan: Continue statin (4) Annual physical exam: Code(s): Z00.00 - Encounter for general adult medical examination without abnormal findings Category: Medical Plan: Well-balanced diet regular physical activity discussed with the patient she is up-to-date with mammogram pelvic exam by obstetrics gyn physician and colonoscopy Orders: Orders Hemoglobin A1c 3 Months E11.9 - Type 2 diabetes mellitus without complications, E78.5 - Hyperlipidemia, unspecified Comprehensive [place]. Panel Fast 3 Months E11.9 - Type 2 diabetes mellitus without complications, E78.5 - Hyperlipidemia, unspecified Lipid Panel 3 Months E11.9 - Type 2 diabetes mellitus without complications, E78.5 - Hyperlipidemia, unspecified Microalbumin, Random (w Creat) 3 Months E11.9 - Type 2 diabetes mellitus without complications, E78.5 - Hyperlipidemia, unspecified TSH reflex Free T4 3 Months E11.9 - Type 2 diabetes mellitus without complications, E78.5 - Hyperlipidemia, unspecified Medications: Discontinued metformin Discontinued Reason: Doctor's Order 1,000 mg PO .qd 90 tabs 3RF
== END 2024-09-09 11:15 | disposition home or self-care (01) ==
LOC: HO.HMCC 09:57
PROVIDERS: PCP Internal Medicine; Visit Provider Internal Medicine
DX: F33.2 Major depressive disorder, recurrent severe without psychotic features (principal); E11.9 Type 2 diabetes mellitus without complications; E78.5 Hyperlipidemia, unspecified; Z00.00 Encounter for general adult medical examination without abnormal findings

== ENCOUNTER → 2024-09-09 09:56 | Outpatient (BNVA) | payer OTHER, SELFPAY | PROVIDERS: PCP Internal Medicine; Visit Provider Internal Medicine | DX: Z00.00 Encounter for general adult medical examination without abnormal findings (principal); F33.2 Major depressive disorder, recurrent severe without psychotic features; E11.9 Type 2 diabetes mellitus without complications; E78.5 Hyperlipidemia, unspecified; Z79.899 Other long term (current) drug therapy; Z13.30 Encounter for screening examination for mental health and behavioral disorders, unspecified; Z13.31 Encounter for screening for depression | CPT/HCPCS: 96127; 99396 ==

== ENCOUNTER 2024-12-08 08:06 | Outpatient (REF) | payer OTHER, SELFPAY ==
--- OUTSIDE RECORDS SUMMARY | 2024-12-08 08:11 | XMS_ITS | Clinical Summary ---
Author Organization [facility] Address [address] [address] Phone Care Team Providers Care Head Scorer Name Role Phone Francesca Magana MD Primary Care Provider [phone] Allergies Active Allergy Reactions Criticality Noted Date Comments Gadolinium-Containing Contrast Media 10/25/2022 Oxycodone-Acetaminophen 10/25/2022 Oxycodone-Aspirin 10/25/2022 Azithromycin 10/25/2022 Medications ARIPiprazole (ABILIFY) 2 MG tablet Take 2 mg by mouth daily. 10/22/2022 Active ACCU-CHEK GUIDE TEST STRIPS Strp strips DIRECTED TO TEST BLOOD SUGAR ONCE A DAY 08/22/2022 Active ACCU-CHEK GUIDE ME GLUCOSE MTR Misc meter DIRECTED TO TEST BLOOD SUGAR ONCE A DAY 08/22/2022 Active docusate sodium (COLACE) 100 MG capsule Take 100 mg by mouth nightly at bedtime. 07/22/2022 Active gabapentin (NEURONTIN) 300 MG capsule Take 300 mg by mouth daily. 10/02/2022 Active lisinopril (PRINIVIL,ZESTR IL) 10 MG tablet Take 10 mg by mouth nightly at bedtime. at bedtime. 09/05/2022 Active metFORMIN (GLUCOPHAGE) 1000 MG tablet Take 1,000 mg by mouth 2 (two) times a day. 08/22/2022 Active pantoprazole (PROTONIX) 40 MG tablet Take 40 mg by mouth daily. 10/16/2022 Active rosuvastatin (CRESTOR) 20 MG tablet Take 20 mg by mouth daily. 09/19/2022 Active topiramate (TOPAMAX) 200 MG tablet Take 200 mg by mouth daily. 08/23/2022 Active TRINTELLIX 20 mg Tab Take 40 mg by mouth every morning. 09/27/2022 Active Active Problems Problem Noted Date Diagnosed Date Equinus deformity of both feet 10/25/2022 Flat foot 10/25/2022 Bunion 10/25/2022 Social History Tobacco Use Types Packs/Day Years Used Date Smoking Tobacco: Never Smokeless Tobacco: Never Tobacco Cessation:Counseling Given: Not Answered Alcohol Use Standard Drinks/Week Comments Yes 0 (1 standard drink = 0.6 oz pur e alcohol) Education Answer Date Recorded Are you interested in more education? Not on renu e 10/23/2022 Are you concerned about learning? Not on file 10/23/2022 No 10/23/2022 No 10/23/2022 Digital Access Answer Date Recorded No 10/23/2022 No 10/23/2022 Reliable internet access at home? Not on file 10/23/2022 Device with a working camera? Not on file Comments Unknown Sex and Gender Information Value Date Recorded Sex Assigned at Not on file Legal Sex Female 6:49 PM EST Gender Identity Not on file Sexual Orientation Not on file Last Filed Vital Signs Vital Sign Reading Time Taken Comments Blood Pressure - - Pulse - - Temperature - - Respiratory Rate - - Oxygen Saturation - - Inhaled Oxygen Concentration - - Weight 78.9 kg (174 lb) 10/25/2022 11:27 AM EDT Height 171.5 cm (5' 7.5 ) 10/25/2022 11:27 AM ED T Body Mass Index 26.85 10/25/2022 11:27 AM EDT Plan of Treatment Health Maintenance Due Date Last Done Comments Adult Td,Tdap Booster 1965 CREATININE LEVEL 1963 LIPID PANEL 1963 POTASSIUM LEVEL 1963 DEPRESSION SCREENING 1975 HEPATITIS C SCREENING 1981 HIV ONE-TIME SCREENING (18-6 5 YEARS) 1981 PAP SMEAR 1984 SCREENING FOR DIABETES 1998 MAMMOGRAM 2003 COLOGUARD 2008 COLONOSCOPY 2008 COLORECTAL CANCER SCREENING 2008 FIT TEST 2008 FOBT 2008 SIGMOIDOSCOPY 2008 VIRTUAL COLONOSCOPY 2008 PNEUMOCOCCAL VACCINES (50+ y ears) (1 of 1 - PCV) 2013 ZOSTER VACCINES (1 of 2) 2013 COVID-19 VACCINE (1 - 2023-2 5 season) 2023 RSV VACCINE (1 - 1-dose 75+ series) 2038 SMOKING STATUS SCREENING (On ce After 26 Yrs) Completed 10/25/2022 HEPATITIS A VACCINES Aged Out No long er eligible based on patient's age to complete this topic HIB VACCINES Aged Out No longer eligi ble based on patient's age to complete this topic MENINGOCOCCAL VACCINES (ACWY) Aged Out No longer eligible based on patient's age to complete this topic MENINGOCOCCAL VACCINES (B) Aged Out N o longer eligible based on patient's age to complete this topic Medical Devices Not on file Insurance [employer] DIRECT [facility] [employer] DIRECT PLANS DIRECT [facility] [place] [address] [place] [address] [employer] PL[employer] DIRECT [facility] [employer] PL[employer] DIRECT Care Teams Head Scorer Relationship Specialty Start Date End Date Francesca Magana MD [address] [facility] [place] [address] PCP - General Internal Medicine 10/17/22 Additional Source Comments The information contained in this document represents components of the legal health record. It is not the complete legal health record.[facility]
[2024-12-08 10:35] LABS: Hemoglobin A1C 124.0797 umol/L; Total Hemoglobin (HGBA1C) 3362.6189 umol/L
[2024-12-08 10:42] LABS: Alanine Aminotransferase 45 U/L (0-31); Albumin Level 4.2 g/dL (3.5-5.0); Alkaline Phosphatase 59 U/L (39-117); Anion Gap 10 (12-20); Aspartate Amino Transferase 35 U/L (5-31); Blood Urea Nitrogen 12 mg/dL (9-16); Calcium 9.4 mg/dL (8.4-10.2); Carbon Dioxide 26 mmol/L (22-29); Chloride 112 mmol/L (96-108); Cholesterol 118 mg/dL (<200); Estimated Glomerular Filt Rate 57; HDL Cholesterol 46 mg/dL (>40); Potassium 3.9 mmol/L (3.3-5.1); Sodium 144 mmol/L (135-145); Total Protein 6.1 g/dL (6.5-8.0); Triglycerides 106 mg/dL (<150)
[2024-12-08 11:35] LABS: Microalbum/Creatinine Ratio Ur 51.1 ug/mg cr (<30)
== END 2024-12-08 08:07 | disposition home or self-care (01) ==
LOC: HO.HMGCLDS 08:06
PROVIDERS: PCP Internal Medicine; Visit Provider Internal Medicine
DX: E11.9 Type 2 diabetes mellitus without complications (principal); E78.5 Hyperlipidemia, unspecified
CPT/HCPCS: 36415; 80053; 80061; 82043; 82570; 83036; 84443

== ENCOUNTER 2024-12-25 09:54 | Outpatient (AMB) | payer OTHER, SELFPAY ==
[2024-12-25 09:59] VITALS: BP 123/59; PULSE 69; BMI 22.8
--- NOTE | 2024-12-25 09:59 | MHC.OFFVIS ---
Vital Signs 12/25/24 09:59 Height 5 ft 7.5 in Weight 147 lb 11.355 oz BMI 22.8 BP 123/59 L Blood Pressure Location Lt brachial Position Sitting Pulse 69 Intake Visit Reasons: 6 month f/u Intake Note: Millicent presents in the office as a 6 month follow up. CC: No concerns just to be put on the list for EGD. Allergies acetaminophen (Percocet) Allergy (Unknown, Verified 12/25/24 10:03) Rash iodine Allergy (Unknown, Verified 12/25/24 10:03) Wheezing, rash oxycodone (Percocet) Allergy (Unknown, Verified 12/25/24 10:03) Wheezing, rash azithromycin Allergy (Verified 12/25/24 10:03) rash Percodan Allergy (Unknown, Uncoded 12/25/24 10:03) wheezing and rash HPI HPI 6 month f/u: Details: 59 f here for f/u RECAP: Pt was seeing Nataliia for GERD and constipation on linaclotide and nexium EGD/COlo 01/04 Endoscopy Findings: gastritis duodenitis esophagitis Colonoscopy Findings: polyp internal hemorrhoids Path: hyperplastic polyp and duodenitis EGD: 02/25/24 gastritis duodenitis mild esophagitis patulous GEJ ALMANZAR: negative H pylori neg, celiac negative INTERIM: she feels omucous going down the wrong way but not food or water no nausea no abdominal pain she does have occ breakthru with reflux she has migraines for botox, recently worse in last 6 months EXAM: GENERAL: The patient is well developed and nontoxic. VITAL SIGNS:see workflow HEENT: Nonicteric sclerae, PERRLA, EOMI. Oropharynx clear. Moist mucous membranes. Conjunctivae appear well perfused. No thyroid mass. CHEST: Chest wall is nontender. HEART: Regular rate and rhythm without murmurs. LUNGS: Clear to auscultation bilaterally. ABDOMEN: Soft, positive bowel sounds, nontender, no organomegaly.no flank tenderness SKIN: No rash, no excessive bruising, petechiae, or purpura. NEUROLOGIC: Cranial nerves II-XII intact without motor/sensory deficit. Psych: normal affect A/P: 1/ Neg almanzar but path and EGD pos for significant acid damage, on PPI 2/ constipaiton, better, only neeeds liaclotide occqasionally PLAN: 1/ cont with aciphex and repeat EGD now and revisit previously discussed options such as linx, niessen and ART 2/ take MV and vit D PFSH Medical History Major depression, recurrent, full remission Major depressive disorder, recurrent severe without psychotic features History of open sigmoidectomy (~04/15/04) Trigger thumb of right hand (~1963) Migraine headache Annual physical exam Microalbuminuria Abnormal colonoscopy Hyperlipemia DM type 2 (diabetes mellitus, type 2) Dysuria Adhesive capsulitis of shoulder History of trigger finger Surgical History History of esophagogastroduodenoscopy (EGD) Hx of colonoscopy History of ankle surgery H/O parathyroidectomy History of sinus surgery S/P tonsillectomy History of 2 sections Family History Father No problems noted. Mother No problems noted. Paternal Grandmother Colon cancer Other Major depressive disorder, recurrent severe without psychotic features Mental health disorder Social History Housing: House Are you a primary neonatal intensive care unit nurse to a significant other at home: No Do you presently have visiting nurse or other home services: No Alcohol intake: current Alcohol intake frequency: a few times a month Patient Tobacco Use Status: Never used Tobacco e-Cigarette/Vaping Use: Never Used service: No Current occupational status: retired Current occupation: retired-right handed Cognitive needs: No Hearing needs: No Vision needs: Yes Female Reproductive History Menstrual Age of Menarche: 11 Physical Exam Vital Signs: Last Vital Signs Pulse 69 12/25/24 09:59 BP 123/59 L 12/25/24 09:59 BMI result Body Mass Index 22.8 Assessment & Plan Assessment & Plan (1) GERD (gastroesophageal reflux disease): Comment: EGD 02/2024 chronic inflammation, capsule endoscopy f/u Dr. Barajas Code(s): K21.9 - Gastro-esophageal reflux disease without esophagitis Category: Medical Plan: as above Orders: Referrals GI Procedure Notification K21.9 - Gastro-esophageal reflux disease without esophagitis Coding Level of Care Code Est Pt Level 3 (20928) Diagnoses GERD (gastroesophageal reflux disease) K21.9
--- OUTSIDE RECORDS SUMMARY | 2024-12-25 11:12 | XMS_ITS | Clinical Summary ---
Author Organization [facility] Address [address] [address] Phone Care Team Providers Care Driver Guide Name Role Phone Francesca Magana MD Primary Care Provider [phone] Allergies Active Allergy Reactions Criticality Noted Date [...] VACCINE (1 - 2023-2 5 season) 2023 INFLUENZA VACCINE (#1) 2024 RSV VACCINE (1 - 1-dose 75+ series) [...] topic Medical Devices Not on file Insurance [employer] DIRECT [facility] [employer] DIRECT PLANS DIRECT [facility] DIRECT [facility] [employer] PLANS DIRECT [facility] [employer] PLANS DIRECT Care Teams Driver Guide Relationship Specialty Start Date End Date Francesca Magana MD [address] [facility] [place] [address] PCP - General Internal Medicine 10/17/22 Additional Source Comments The information contained in this document represents components of the legal health record. It is not the complete legal health record.[facility]
== END 2024-12-25 10:30 | disposition home or self-care (01) ==
LOC: HO.HGI 09:55
PROVIDERS: PCP Internal Medicine; Visit Provider Internal Medicine Gastroenterology
DX: K21.9 Gastro-esophageal reflux disease without esophagitis (principal)
CPT/HCPCS: 99213

== ENCOUNTER → 2024-12-25 09:54 | Outpatient (BNVA) | payer OTHER, SELFPAY | PROVIDERS: PCP Internal Medicine; Visit Provider Internal Medicine Gastroenterology | DX: K21.9 Gastro-esophageal reflux disease without esophagitis (principal) | CPT/HCPCS: 99212 ==

== ENCOUNTER 2025-01-20 12:51 | Outpatient (REF) | payer OTHER, SELFPAY ==
--- NOTE | ~2025-01-20 | XR_ITS ---
EXAMINATION: XR FOOT 1-2 VIEWS RIGHT HISTORY: S99.929A - Unspecified injury of unspecified foot, initial encounter COMPARISON: There are no prior studies available for comparison. FINDINGS: Three views of the right foot are submitted. The bones are osteopenic. There is no fracture or dislocation. There is mild degenerative change and hallux valgus deformity of the 1st MTP joint. The soft tissues are unremarkable. XR/XR foot RT 2V IMPRESSION: Mild degenerative change and hallux valgus deformity of the 1st MTP joint. Electronically signed by: Gee Ojeda MD 01/20/2025 02:20 PM EDT
== END 2025-01-20 12:52 | disposition home or self-care (01) ==
LOC: HO.HMGCX 12:51
PROVIDERS: PCP Internal Medicine; Visit Provider Internal Medicine
DX: S99.921A Unspecified injury of right foot, initial encounter (principal); F33.2 Major depressive disorder, recurrent severe without psychotic features; E11.9 Type 2 diabetes mellitus without complications; E78.5 Hyperlipidemia, unspecified
CPT/HCPCS: 73620; 99212

== ENCOUNTER 2025-01-20 12:51 | Outpatient (AMB) | payer OTHER, SELFPAY ==
[2025-01-20 13:42] VITALS: BP 108/76; PULSE 79; RESP 18; TEMP 37.1; O2SAT 97; BMI 22.8
--- NOTE | 2025-01-20 13:42 | MHC.PC.OV ---
Vital Signs 01/20/25 13:42 Height 5 ft 7.5 in Weight 148 lb BMI 22.8 BP 108/76 Blood Pressure Location Lt brachial Position Sitting Respiration 18 Pulse 79 Pulse Source Pulse Oximeter Temp 98.7 F Temp Source Oral Pulse Oximetry (%) 97 Oxygen Delivery Method Room Air Intake Visit Reasons: 3m f/u Intake Note: Pt is here today for 3 months follow up visit. Allergies acetaminophen (Percocet) Allergy (Unknown, Verified 12/25/24 10:03) Rash iodine Allergy (Unknown, Verified 12/25/24 10:03) Wheezing, rash oxycodone (Percocet) Allergy (Unknown, Verified 12/25/24 10:03) Wheezing, rash azithromycin Allergy (Verified 12/25/24 10:03) rash Percodan Allergy (Unknown, Uncoded 12/25/24 10:03) wheezing and rash Medication List - Last Reconciled 01/20/25 by Francesca Magana MD blood sugar diagnostic (Accu-Chek Guide test strips) As directed to test blood sugar once a day blood-glucose meter (Accu-Chek Guide Me Glucose Meter) As directed to test blood sugar once a day cholecalciferol (vitamin D3) 25 mcg PO DAILY gabapentin 300 mg PO BEDTIME hydrocortisone 2.5% (Proctosol HC) 1 appl VT BID-QID PRN linaclotide (Linzess) 145 mcg PO DAILY loratadine 10 mg PO DAILY lurasidone 40 mg PO QPM omega-3 fatty acids (Fish Oil) PO DAILY onabotulinumtoxinA (Botox) intradermal .every 12 weeks Ozempic (semaglutide) 0.5 mg (0.736 mL) subcut QWEEK NS rabeprazole 20 mg PO DAILY rimegepant (Nurtec ODT) 75 mg PO DAILY PRN rosuvastatin 20 mg PO BEDTIME sucralfate 10 mL PO BID topiramate 200 mg PO BEDTIME vortioxetine 40 mg (2 x 20 mg) PO DAILY Tobacco use date assessed: 01/20/25 Dental Screening Dental Screen Date: 09/09/24 HPI 3m f/u HPI Details Patient presents for the follow-up on hyperlipidemia and hyperglycemia stable on current medications. She is established with psychiatrist and chronic bipolar disorder is stable on current medications. Patient will have upper endoscopy next week to follow-up on esophagitis./GERD. Chronic migraine headaches are controlled on Nurtec and Topamax. Patient complains of right toe pain and swelling after she dropped a heavy object on her foot yesterday. [facility] Medical History Major depression, recurrent, full remission Major depressive disorder, recurrent severe without psychotic features History of open sigmoidectomy (~04/15/04) Trigger thumb of right hand (~1963) Migraine headache Annual physical exam Microalbuminuria Abnormal colonoscopy Hyperlipemia DM type 2 (diabetes mellitus, type 2) Dysuria Adhesive capsulitis of shoulder History of trigger finger Surgical History History of esophagogastroduodenoscopy (EGD) Hx of colonoscopy History of ankle surgery H/O parathyroidectomy History of sinus surgery S/P tonsillectomy History of 2 sections Family History Father No problems noted. Mother No problems noted. Paternal Grandmother Colon cancer Other Major depressive disorder, recurrent severe without psychotic features Mental health disorder Social History Housing: House Are you a primary respiratory care program director to a significant other at home: No Do you presently have visiting nurse or other home services: No Alcohol intake: current Alcohol intake frequency: a few times a month Patient Tobacco Use Status: Never used Tobacco e-Cigarette/Vaping Use: Never Used service: No Current occupational status: retired Current occupation: retired-right handed Cognitive needs: No Hearing needs: No Vision needs: Yes Female Reproductive History Menstrual Age of Menarche: 11 Questionnaire Thrive Questionnaire Date Thrive assessed: 09/09/24 I am a: Patient What is your living situation today?: I have a steady place to live Within the past 12 months, did the food you bought not last and you didn't have the money to get more?: Never true Within the past 12 months, did you worry whether your food would run out before you got money to buy more?: Never true Do you have trouble paying for medicines?: No Do you have trouble getting transportation to medical appointments?: No Do you have trouble paying your heating and electricity bill?: No Do you have trouble taking care of your child, family member or friend?: No Do you have trouble with day-to-day activities such as bathing, preparing meals, shopping, managing finances, etc.?: No Are you currently unemployed and looking for a job?: No Are you interested in more education?: No Please select the resources that you would like help with: None Currently or been in a relationship where the following occur: No concerns reported THRIVE Score: 0 JEFF-7 AMB Questionnaire JEFF-7 Date JEFF - 7 assessed: 09/09/24 Source: Developed by Drs. Gee Keen, Prema Connolly, Sergio Vazquez and colleagues, with an educational hernan from [employer]. Review of Systems Const All systems reviewed & are unremarkable except as noted in HPI and below ENT Reports no additional complaints Card Reports no additional complaints Resp Reports no additional complaints GI Reports no additional complaints Reports no additional complaints Physical exam (Primary Care) Vital Signs: Last Vital Signs Temp 98.7 F 01/20/25 13:42 Pulse 79 01/20/25 13:42 Resp 18 01/20/25 13:42 BP 108/76 01/20/25 13:42 Pulse Ox 97 01/20/25 13:42 Oxygen Delivery Method Room Air 01/20/25 13:42 BMI result Body Mass Index 22.8 Tobacco/Smoking Status: Tobacco use Status Tobacco use date assessed 01/20/25 01/20/25 13:47 Patient Tobacco Use Status Never used Tobacco 01/20/25 13:47 e-Cigarette/Vaping Use Never Used 01/20/25 13:47 Thrive Assessment: Date of Thrive Assessment Date Thrive assessed 09/09/24 01/20/25 13:47 Currently or been in a relationship where the following occur: No concerns reported Const General: no acute distress Eyes General: appearance normal, both eyes and all related structures Resp Effort & Inspection: normal respiratory effort Auscultation: clear to auscultation bilaterally Cardio Rhythm: regular rhythm Heart sounds: S1 normal heart sound present and S2 normal heart sound present GI Inspection: Yes normal to inspection Palpation (GI): Soft to palpation Extrem Other: Right 1st toe there is tenderness and soft tissue swelling, no other formed Coding Level of Care Code Est Pt Level 4 (38549) Diagnoses Foot injury S99.929A Major depressive disorder, recurrent severe without psychotic features F33.2 DM type 2 (diabetes mellitus, type 2) E11.9 Hyperlipemia E78.5 Assessment & Plan Assessment & Plan (1) Foot injury: Code(s): S99.929A - Unspecified injury of unspecified foot, initial encounter Category: Medical Plan: Check x-ray of right foot, supportive care discussed with the pt (2) Major depressive disorder, recurrent severe without psychotic features: Comment: Patient is established with psychiatrist and therapist Code(s): F33.2 - Major depressive disorder, recurrent severe without psychotic features Category: Medical Plan: Continue current medications follow-up with psychiatry (3) DM type 2 (diabetes mellitus, type 2): Code(s): E11.9 - Type 2 diabetes mellitus without complications Category: Medical Plan: A1c is 5.2, continue ADA diet regular exercise and Ozempic follow-up in September for physical (4) Hyperlipemia: Code(s): E78.5 - Hyperlipidemia, unspecified Category: Medical Plan: Continue statin Orders: Orders Vitamin D 25-OH Total 8 Months E11.9 - Type 2 diabetes mellitus without complications, E55.9 - Vitamin D deficiency, unspecified, E78.5 - Hyperlipidemia, unspecified XR foot RT 2V Today S99.929A - Unspecified injury of unspecified foot, initial encounter Comprehensive [place]atum. Panel Fast 8 Months E11.9 - Type 2 diabetes mellitus without complications, E55.9 - Vitamin D deficiency, unspecified, E78.5 - Hyperlipidemia, unspecified Lipid Panel 8 Months E11.9 - Type 2 diabetes mellitus without complications, E55.9 - Vitamin D deficiency, unspecified, E78.5 - Hyperlipidemia, unspecified Hemoglobin A1c 8 Months E11.9 - Type 2 diabetes mellitus without complications, E55.9 - Vitamin D deficiency, unspecified, E78.5 - Hyperlipidemia, unspecified Complete Blood Count Auto Diff 8 Months E11.9 - Type 2 diabetes mellitus without complications, E55.9 - Vitamin D deficiency, unspecified, E78.5 - Hyperlipidemia, unspecified TSH reflex Free T4 8 Months E11.9 - Type 2 diabetes mellitus without complications, E55.9 - Vitamin D deficiency, unspecified, E78.5 - Hyperlipidemia, unspecified Microalbumin, Random (w Creat) 8 Months E11.9 - Type 2 diabetes mellitus without complications, E55.9 - Vitamin D deficiency, unspecified, E78.5 - Hyperlipidemia, unspecified UA w Microscopic 8 Months E11.9 - Type 2 diabetes mellitus without complications, E55.9 - Vitamin D deficiency, unspecified, E78.5 - Hyperlipidemia, unspecified
== END 2025-01-20 14:18 | disposition home or self-care (01) ==
LOC: HO.HMCC 12:52
PROVIDERS: PCP Internal Medicine; Visit Provider Internal Medicine
DX: S99.929A Unspecified injury of unspecified foot, initial encounter (principal); F33.2 Major depressive disorder, recurrent severe without psychotic features; E11.9 Type 2 diabetes mellitus without complications; E78.5 Hyperlipidemia, unspecified

== ENCOUNTER → 2025-01-20 14:12 | Outpatient (BNV) | payer OTHER, SELFPAY | PROVIDERS: PCP Internal Medicine; Visit Provider Radiology Diagnostic Radiology | DX: M20.11 Hallux valgus (acquired), right foot (principal) | CPT/HCPCS: 73620 ==

== ENCOUNTER 2025-01-26 07:59 | Day surgery (SDC) | payer OTHER, SELFPAY ==
--- OUTSIDE RECORDS SUMMARY | 2024-12-31 11:11 | XMS_ITS | Clinical Summary ---
Author Organization [facility] Address [address] [address] Phone Care Team Providers Care Rubber Factory Worker Name Role Phone Francesca Magana MD Primary Care Provider [phone] Allergies Active Allergy Reactions Criticality Noted Date [...] 2013 ZOSTER VACCINES (1 of 2) 2013 INFLUENZA VACCINE (#1) 2024 COVID-19 VACCINE (1 - 2023-2 5 season) 2024 RSV VACCINE (1 - 1-dose 75+ [...] topic Medical Devices Not on file Insurance [employer] DIRECT [facility] [employer] Pay[employer] DIRECT PLANS DIRECT [facility] DIRECT [facility] [employer] PL[employer] DIRECT [facility] [employer] DIRECT Care Teams Rubber Factory Worker Relationship Specialty Start Date End Date Francesca Magana MD [address] [place] [address] PCP - General Internal Medicine 10/17/22 Additional Source Comments The information contained in this document represents components of the legal health record. It is not the complete legal health record.[facility]
--- NOTE | 2025-01-22 09:40 | HO.ANESPROP2 ---
Documented by User: Radhika Newberry NP 01/22/25 09:42 HPI - Anesthesia Eval Consult details Narrative: 59yo F for Upper Endoscopy Anesthesia Pre-Procedure Meds Is the patient on any of the following meds?: GLP1/DPP4 PMFSH Active Problems Active Problems: All Active Problems Foot injury (Acute) History of esophagogastroduodenoscopy (EGD) (Acute) GERD (gastroesophageal reflux disease) (Acute) Vitamin D deficiency (Acute) Major depressive disorder, recurrent severe without psychotic features (Acute) Overweight (Acute) Tick bite (Acute) Abdominal wall hernia (Acute) Abdominal pain (Acute) Colitis (Acute) Back pain (Acute) Bunion (Acute) Postmenopausal (Acute) Well woman exam (Acute) Annual physical exam (Acute) Microalbuminuria (Acute) Hyperlipemia (Acute) DM type 2 (diabetes mellitus, type 2) (Acute) Dysuria (Acute) Adhesive capsulitis of shoulder (Acute) Past Medical History Medical History Major depression, recurrent, full remission Major depressive disorder, recurrent severe without psychotic features History of open sigmoidectomy (~04/15/04) Trigger thumb of right hand (~1963) Migraine headache Annual physical exam Microalbuminuria Abnormal colonoscopy Hyperlipemia DM type 2 (diabetes mellitus, type 2) Dysuria Adhesive capsulitis of shoulder History of trigger finger Family History Family History Father No problems noted. Mother No problems noted. Paternal Grandmother Colon cancer Other Major depressive disorder, recurrent severe without psychotic features Mental health disorder Family history of problems with anesthesia: No Surgical History Surgical History History of esophagogastroduodenoscopy (EGD) Hx of colonoscopy History of ankle surgery H/O parathyroidectomy History of sinus surgery S/P tonsillectomy History of 2 sections History of Problems with Anesthesia: No Social History Social History Housing: House Are you a primary family day care provider to a significant other at home: No Do you presently have visiting nurse or other home services: No Alcohol intake: current Alcohol intake frequency: does not drink Patient Tobacco Use Status: Never used Tobacco e-Cigarette/Vaping Use: Never Used Second Hand Smoke Exposure: No Use of substances other than those prescribed or required for medical reasons: No Have you been hit, kicked, punched, or otherwise hurt by someone within the past year? If so, by whom?: No Are you DNR?: No Advance Directives: No Advance Directives Information Provided: Yes Advance Directives on File: No Patient : No : No Poor oral hygiene: No service: No Current occupational status: retired Current occupation: retired-right handed Cognitive needs: No Hearing needs: No Vision needs: Yes Meds Allergies Allergy/AdvReac Type Severity Reaction Status Date / Time acetaminophen (Percocet) Allergy Unknown Rash Verified 12/25/24 10:03 iodine Allergy Unknown Wheezing, Verified 12/25/24 10:03 rash oxycodone (Percocet) Allergy Unknown Wheezing, Verified 12/25/24 10:03 rash azithromycin Allergy rash Verified 12/25/24 10:03 Percodan Allergy Unknown wheezing Uncoded 12/25/24 10:03 and rash Home Medications ?Medication ?Instructions ?Recorded ?Confirmed ?Last Taken ?Type loratadine 10 mg capsule 10 mg PO DAILY 02/08/20 01/26/25 Unknown History onabotulinumtoxinA 200 unit intradermal .every 12 weeks 11/24/20 01/20/25 Unknown History solution for injection (Botox) rimegepant 75 mg disintegrating 75 mg PO DAILY PRN migraine 11/24/20 01/26/25 Unknown History tablet (Nurtec ODT) cholecalciferol (vitamin D3) 25 25 mcg PO DAILY 09/03/22 01/26/25 Unknown History mcg (1,000 unit) capsule omega-3 fatty acids [Fish Oil] PO DAILY 09/03/22 01/20/25 Unknown History lurasidone 40 mg tablet 40 mg PO QPM 12/25/24 01/26/25 Unknown History Assessment and Plan Assessment Anesthesia Assessment: Chart Reviewed Final Anesthetic Review Family History of Problems with Anesthesia: No History of Problems with Anesthesia: No Documented by User: Sulema Chen MD 01/26/25 08:49 [facility] Past Medical History Medical History Major depression, recurrent, full remission Major depressive disorder, recurrent severe without psychotic features History of open sigmoidectomy (~04/15/04) Trigger thumb of right hand (~1963) Migraine headache Annual physical exam Microalbuminuria Abnormal colonoscopy Hyperlipemia DM type 2 (diabetes mellitus, type 2) Dysuria Adhesive capsulitis of shoulder History of trigger finger Family History Family History Father No problems noted. Mother No problems noted. Paternal Grandmother Colon cancer Other Major depressive disorder, recurrent severe without psychotic features Mental health disorder Surgical History Surgical History History of esophagogastroduodenoscopy (EGD) Hx of colonoscopy History of ankle surgery H/O parathyroidectomy History of sinus surgery S/P tonsillectomy History of 2 sections Social History Social History Housing: House Are you a primary family day care provider to a significant other at home: No Do you presently have visiting nurse or other home services: No Alcohol intake: current Alcohol intake frequency: does not drink Patient Tobacco Use Status: Never used Tobacco e-Cigarette/Vaping Use: Never Used Second Hand Smoke Exposure: No Use of substances other than those prescribed or required for medical reasons: No Have you been hit, kicked, punched, or otherwise hurt by someone within the past year? If so, by whom?: No Are you DNR?: No Advance Directives: No Advance Directives Information Provided: Yes Advance Directives on File: No Patient : No : No Poor oral hygiene: No service: No Current occupational status: retired Current occupation: retired-right handed Cognitive needs: No Hearing needs: No Vision needs: Yes Meds Allergies Allergy/AdvReac Type Severity Reaction Status Date / Time acetaminophen (Percocet) Allergy Unknown Rash Verified 12/25/24 10:03 iodine Allergy Unknown Wheezing, Verified 12/25/24 10:03 rash oxycodone (Percocet) Allergy Unknown Wheezing, Verified 12/25/24 10:03 rash azithromycin Allergy rash Verified 12/25/24 10:03 Percodan Allergy Unknown wheezing Uncoded 12/25/24 10:03 and rash Home Medications ?Medication ?Instructions ?Recorded ?Confirmed ?Last Taken ?Type loratadine 10 mg capsule 10 mg PO DAILY 02/08/20 01/26/25 Unknown History onabotulinumtoxinA 200 unit intradermal .every 12 weeks 11/24/20 01/20/25 Unknown History solution for injection (Botox) rimegepant 75 mg disintegrating 75 mg PO DAILY PRN migraine 11/24/20 01/26/25 Unknown History tablet (Nurtec ODT) cholecalciferol (vitamin D3) 25 25 mcg PO DAILY 09/03/22 01/26/25 Unknown History mcg (1,000 unit) capsule omega-3 fatty acids [Fish Oil] PO DAILY 09/03/22 01/20/25 Unknown History lurasidone 40 mg tablet 40 mg PO QPM 12/25/24 01/26/25 Unknown History Exam Airway Mallampati Class: II TM Dist: >3cm Neck ROM: Full Heart: rrr Lungs: cta Assessment and Plan Assessment Anesthesia Assessment: Anesthesia Plan Discussed Final Anesthetic Review NPO: Yes ASA Class: III Final Preanesthetic Review: No Changes in Pt Med Stat, Meds/Allgs Chart Reviewed, Consent Obtained/Reviewed and Anes Risks/Benef Reviewed Patient Risk: Intermediate Procedure Risk: Low Anesthetic Plan Anesthetic Plan: MAC: Disposition: Standard PACU
[2025-01-26 08:44] VITALS: BP 124/75; PULSE 68; RESP 16; TEMP 36.9; O2SAT 97
[2025-01-26 08:45] VITALS: BMI 23.1
--- NOTE | 2025-01-26 08:46 | MHC.SHP ---
Pre-Procedural Eval Section A - 24 Hr Update-Section A only Date of Service: 01/26/25 Section B - Complete if H&P > 30 days Chief Complaint: gerd, Relevant Family History (Specify if Yes): No Relevant Social History: None Present Medications: see Short Stay Collaborative assessment Medical History: Significant History (Major depression, recurrent, full remission Major depressive disorder, recurrent severe without psychotic features History of open sigmoidectomy (~04/15/04) Trigger thumb of right hand (~1963) Migraine headache Annual physical exam Microalbuminuria Abnormal colonoscopy Hyperlipemia DM type 2 () History of Previous Operations: Relevant previous surgery/procedure and date(s) ( History of esophagogastroduodenoscopy (EGD) Hx of colonoscopy History of ankle surgery H/O parathyroidectomy History of sinus surgery S/P tonsillectomy History of 2 sections) Allergies: Allergies Allergy/AdvReac Type Severity Reaction Status Date / Time acetaminophen (Percocet) Allergy Unknown Rash Verified 12/25/24 10:03 iodine Allergy Unknown Wheezing, Verified 12/25/24 10:03 rash oxycodone (Percocet) Allergy Unknown Wheezing, Verified 12/25/24 10:03 rash azithromycin Allergy rash Verified 12/25/24 10:03 Percodan Allergy Unknown wheezing Uncoded 12/25/24 10:03 and rash Review of Systems Sugical H&P ROS: Negative: Constitution, Cardiovascular, Respiratory, Neurological, Psychiatric, Hem-Onc, Allergic/Immunologic, Gastrointestinal, Genitourinary, Musculoskeletal, Integumentary, Endocrine and Eyes/Ears/Nose/Throat Exam Surgical H&P Exam: Normal: HEENT, Normal: Heart, Normal: Lungs, Normal: Extremities, Normal: Abdomen, Normal: Skin and Normal: Neurological Plan Diagnosis/Plan: Unchanged I have reviewed the history and physical and performed a pertinent physical examination on my patient. No changes have occurred unless specified. Time Spent With Patient Time: Total time managing care of this patient today ____ minutes.
[2025-01-26] MEDS: Lactated Ringers 1,000 ML 100 ML IVCONT (08:56)
[2025-01-26 09:00] LABS: Glucose, Whole Blood 97 mg/dL (60-115)
--- NOTE | 2025-01-26 09:48 | W.PM.OPN ---
Operative Note Operative Note Date of Service: 01/26/25 Narrative: Procedure Description: EGD Indication: GERD Anesthesia: MAC FLEXIBLE TRANSORAL UPPER GASTROINTESTINAL ENDOSCOPY UPPER ENDOSCOPY Consent: Indications for the procedure and potential complications of bleeding, perforation, reaction to medications and missed diagnosis were discussed with the patient and informed consent was obtained. Instrument: Olympus GIF H 190 J mid size upper endoscope Monitoring: Vital signs and clinical assessment, continuous EKG monitoring, Pulse oximetry, Carbon Dioxide monitoring and blood pressure monitoring were done throughout the procedure. Procedure: The patient was placed in the left lateral decubitis position and pre-procedure medications were administered and a bite block was placed. The endoscope was inserted into the mouth and advanced under direct vision to the third part of duodenum. A careful inspection was made as the upper endoscope was withdrawn including a retroflexed examination of the proximal stomach; Findings and interventions are described below. Findings: Larynx:normal Esophagus: GE junction at 37 cm, diaphragm hiatus at 37 cm, mild esophagitis noted at GEJ, Patulous LES. bx taken from GEJ, distal and proximal esophagus Stomach: Patchy streaky erythematous mucosa. Biopsies were obtained. Grade 2 flap valve on retroflexed examination of the cardia. Duodenum: Patchy erythema thru out bulb bx taken also from second part Intervention: Biopsies as noted above Impression/Findings: gastritis duodenitis mild esophagitis patulous GEJ PLAN: cont PPI, consider changing if symptomatic, avoid nsaids GERD precautions
[2025-01-26 09:52] VITALS: BP 110/70; PULSE 65; RESP 16; TEMP 36.5; O2SAT 98
[2025-01-26 10:07] VITALS: BP 113/68; PULSE 69; RESP 16; O2SAT 97
[2025-01-26 10:17] VITALS: BP 130/76; PULSE 70; RESP 18; TEMP 36.4; O2SAT 98
== END 2025-01-26 11:02 | disposition home or self-care (01) ==
PROVIDERS: PCP Internal Medicine; Visit Provider Internal Medicine Gastroenterology
PROC: 0DJ08ZZ Inspection of Upper Intestinal Tract, Via Natural or Artificial Opening Endoscopic (ICD-10-PCS; CPT 43235; principal; 2025-01-26 09:50)
DX: K21.00 Gastro-esophageal reflux disease with esophagitis, without bleeding (principal); Z80.0 Family history of malignant neoplasm of digestive organs; K29.70 Gastritis, unspecified, without bleeding; Q40.8 Other specified congenital malformations of upper alimentary tract
CPT/HCPCS: 43239; 82947; 88305; 88313; 88342; J2003; J2704; J3010

== ENCOUNTER → 2025-01-26 07:59 | Outpatient (BNV) | payer OTHER, SELFPAY | PROVIDERS: PCP Internal Medicine; Visit Provider Internal Medicine Gastroenterology | DX: K21.00 Gastro-esophageal reflux disease with esophagitis, without bleeding (principal); K22.89 Other specified disease of esophagus; K29.70 Gastritis, unspecified, without bleeding; K29.80 Duodenitis without bleeding | CPT/HCPCS: 43239 ==

== ENCOUNTER 2025-02-22 14:17 | Outpatient (REF) | payer OTHER, SELFPAY ==
--- NOTE | ~2025-02-22 | MM_ITS ---
EXAMINATION: MM SCREENING DIGITAL BREAST TOMOSYNTHESIS, BILATERAL CLINICAL INFORMATION: Screening. Asymptomatic. COMPARISON: Comparison made to multiple prior, most recent February 17, 2024, and most remote November 07, 2015. TECHNIQUE: Digital breast tomosynthesis is performed in mediolateral oblique and craniocaudal views along with computer-aided detection (CAD). Synthesized 2D images are generated from the tomosynthesis. FINDINGS: BREAST COMPOSITION: There are scattered areas of fibroglandular density. RIGHT BREAST: No significant masses, suspicious calcifications or other abnormalities are seen. LEFT BREAST: Suggestion of architectural distortion in the lateral breast posterior depth at 8 cm from the nipple on the CC view (CC 21/55), without definite correlate on the MLO view. No significant masses or suspicious calcifications are seen. MM/MM tomosynthesis screening BI IMPRESSION: RIGHT BREAST: Negative, no mammographic evidence of malignancy. Normal interval follow-up is recommended in 12 months. LEFT BREAST: Suggestion of architectural distortion in the lateral breast posterior depth on the CC view. ASSESSMENT: BI-RADS: Category 0: Incomplete - Need additional Imaging Evaluation RECOMMENDATION: 1. Additional views of the left breast 2. Targeted ultrasound if warranted after review of the additional views. 3. Radiology department staff will contact the patient for additional imaging. FOLLOW-UP: Additional Imaging required This examination should not preclude the clinical evaluation of a suspicious palpable abnormality. This patient's information was entered into a reminder system with a target due date for their next mammogram. Electronically signed by: Mariah Anthony MD 02/23/2025 09:43 PM [facility] [place] [place]
--- OUTSIDE RECORDS SUMMARY | 2025-02-22 16:39 | XMS_ITS | Clinical Summary ---
Author Organization [facility] Address [address] [address] Phone Care Team Providers Care Reliability Technicians Name Role Phone Francesca Magana MD Primary Care Provider [phone] Allergies Active Allergy Reactions Criticality Noted Date [...] VACCINE (#1) 2024 COVID-19 VACCINE (1 - 2024-2 6 season) 2024 RSV VACCINE (1 - 1-dose 75+ series) 2038 SMOKING STATUS SCREENING (On ce After 26 Yrs) Completed 10/25/2022 HEPATITIS A VACCINES Aged Out No long er eligible based on patient's age to complete this topic HIB VACCINES Aged Out No longer eligi ble based on patient's age to complete this topic IPV VACCINES Aged Out No longer eligi ble based on patient's age to complete this topic MENINGOCOCCAL VACCINES (ACWY) Aged Out No longer eligible based on patient's age to complete this topic MENINGOCOCCAL VACCINES (B) Aged Out N o longer eligible based on patient's age to complete this topic Medical Devices Not on file Insurance [employer], [employer] [place] [address] [employer] PLANS DIRECT [facility] [employer] PLANS DIRECT [facility] PLANS [place] [place] [address] [employer] PLANS DIRECT Care Teams Reliability Technicians Relationship Specialty Start Date End Date Francesca Magana MD [address] [place] [address] PCP - General Internal Medicine 10/17/22 Additional Source Comments The information contained in this document represents components of the legal health record. It is not the complete legal health record.[facility]
== END 2025-02-22 14:18 | disposition home or self-care (01) ==
LOC: HO.MAMMO 14:17
PROVIDERS: PCP Internal Medicine; Visit Provider Internal Medicine
DX: Z12.31 Encounter for screening mammogram for malignant neoplasm of breast (principal)
CPT/HCPCS: 77063; 77067

== ENCOUNTER → 2025-02-22 14:30 | Outpatient (BNV) | payer OTHER, SELFPAY | PROVIDERS: PCP Internal Medicine; Visit Provider Radiology Body Imaging | DX: Z12.31 Encounter for screening mammogram for malignant neoplasm of breast (principal) | CPT/HCPCS: 77063; 77067 ==

== ENCOUNTER 2025-03-01 14:57 | Outpatient (REF) | payer OTHER, SELFPAY ==
--- NOTE | ~2025-03-01 | US_ITS ---
EXAMINATION(S): 1. MM DIAGNOSTIC DIGITAL BREAST TOMOSYNTHESIS, LEFT 2. TARGETED ULTRASOUND OF THE LEFT BREAST CLINICAL INFORMATION: Callback from screening for suggestion of architectural distortion in the lateral breast posterior depth on the CC view. Additional history: Patient is status post reduction mammoplasty in 1992. COMPARISON: Comparison made to multiple prior, most recent February 22, 2025, and most remote February 08, 2022. TECHNIQUE: Digital breast tomosynthesis is performed in full-field CC view along with computer-aided detection (CAD). Synthesized 2D images are generated from the tomosynthesis. Spot compression tomosynthesis in CC view FINDINGS: BREAST COMPOSITION: There are scattered areas of fibroglandular density. LEFT BREAST: Previously suggested asymmetry in the lateral breast posterior depth is pliable with spot compression. Suggestion of architectural distortion does not persist on today's images. Findings could have related to postsurgical changes from prior reduction mammoplasty. Targeted ultrasound of the left breast was performed at the location of the mammographic finding. The survey extending from 1:00 to 4:00 axis did not reveal suspicious sonographic findings. US/US Breast LT Limited Mamm Only IMPRESSION: LEFT BREAST: Benign, no evidence of malignancy. Normal interval follow-up is recommended in 12 months. ASSESSMENT: BI-RADS: Category 2: Benign RECOMMENDATION: 1 year F/U Results were provided to the patient at time of visit by the technologist. This patient's information was entered into a reminder system with a target due date for their next mammogram. Electronically signed by: Mariah Anthony MD 03/01/2025 03:59 PM JONATHAN
== END 2025-03-01 14:58 | disposition home or self-care (01) ==
LOC: HO.MAMMO 14:57
PROVIDERS: PCP Internal Medicine; Visit Provider Internal Medicine
DX: N64.89 Other specified disorders of breast (principal)
CPT/HCPCS: 76642; 77061; 77065

== ENCOUNTER → 2025-03-01 15:00 | Outpatient (BNV) | payer OTHER, SELFPAY | PROVIDERS: PCP Internal Medicine; Visit Provider Radiology Body Imaging | DX: N64.89 Other specified disorders of breast (principal) | CPT/HCPCS: 76642; 77061; 77065 ==

== ENCOUNTER 2025-03-25 09:05 | Outpatient (AMB) | payer OTHER, SELFPAY ==
--- NOTE | 2025-03-25 09:10 | MHC.OFFVIS ---
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 Complaining of vaginal dryness/irritation Last Pap/HPV was negative in 01/04 Last Mammogram was BI-RADS 2 in 03/09 Last Colonoscopy was done in 01/04, the recommendation was to repeat in 3-5 years [facility] Medical History Major depression, recurrent, full remission Major depressive disorder, recurrent severe without psychotic features History of open sigmoidectomy (~04/15/04) Trigger thumb of right hand (~1963) Migraine headache Annual physical exam Microalbuminuria Abnormal colonoscopy Hyperlipemia DM type 2 (diabetes mellitus, type 2) Dysuria Adhesive capsulitis of shoulder History of trigger finger Surgical History History of esophagogastroduodenoscopy (EGD) Hx of colonoscopy History of ankle surgery H/O parathyroidectomy History of sinus surgery S/P tonsillectomy History of 2 sections Family History Father Diabetes Mother No problems noted. Paternal Grandmother Colon cancer Paternal Grandmother Diabetes Other Major depressive disorder, recurrent severe without psychotic features Mental health disorder Social History Household Members: Spouse Household Members Other:: son Housing: House Are you a primary property caretaker to a significant other at home: No Do you presently have visiting nurse or other home services: No Alcohol intake: current Alcohol intake frequency: does not drink Patient Tobacco Use Status: Never used Tobacco e-Cigarette/Vaping Use: Never Used Second Hand Smoke Exposure: No service: No Current occupational status: retired Current occupation: retired-right handed Sexual orientation: Straight/Heterosexual Gender identity: Female Cognitive needs: No Hearing needs: No Vision needs: Yes Female Reproductive History Menstrual Age of Menarche: 11 Total pregnancies: 4 Full term: 2 Number of Living Children: 1 Ab spontaneous: 2 (one pass away at age 18) Date of last pap smear: 12/19/21 Date of Mammogram: 02/22/25 Review of Systems Const All systems reviewed & are unremarkable except as noted in HPI and below Card Reports as per HPI Resp Reports as per HPI GI Reports as per HPI and Reports no additional complaints Reports as per HPI Physical Exam Vital Signs: Last Vital Signs BP 122/70 03/25/25 09:16 BMI result Body Mass Index 22.7 Const General: cooperative, healthy appearing and comfortable Chest Chest palpation & inspection: normal inspection of the chest and normal palpation of entire chest wall Breast/axilla inspection: normal inspection of the breasts and normal inspection of the axillae Breast/axilla palpation: normal palpation of the breasts, normal palpation of the axillae and no axillary lymphadenopathy Resp Effort & Inspection: normal respiratory effort Auscultation: clear to auscultation bilaterally Percussion: percussion normal Cardio Palpation: normal PMI Rate: regular rate Rhythm: regular rhythm Heart sounds: no murmurs and no rubs Peripheral pulses: Peripheral pulses 2+ throughout GI Inspection: Yes normal to inspection Palpation (GI): Soft to palpation, nontender, no guarding, not rigid and No hepatosplenomegaly present Percussion: Yes normal to percussion Auscultation: normal bowel sounds Rectal Exam - Female: deferred General: Yes bladder normal to palpation External Female Exam: No lesion Speculum Exam - Vagina: normal appearance of the vagina, normal palpation, normal vaginal discharge and not erythematous Speculum Exam - Cervix: normal appearance of the cervix and normal palpation Bimanual exam- vagina & uterus: normal bimanual exam, normal palpation, uterine size normal, bladder normal to palpation, consistency normal and normal palpation Bimanual Exam- Adnexa, other: normal adnexae, no masses and no tenderness Assessment & Plan Assessment & Plan (1) Well woman exam: Code(s): Z01.419 - Encounter for gynecological examination (general) (routine) without abnormal findings Category: Medical Plan: Cotesting not indicated this year. Instructions given the patient is schedule next screening Mammogram in 03/10. Will refer to GI for screening colonoscopy Counseled the patient about the recommended dietary allowance of 1000 mg of Calcium & 600 IU of vitamin D. The patient was instructed to perform monthly self-breast exams and to schedule an annual exam in a year; All questions answered and the patient verbalized understanding. Instructed the patient to schedule annual exam in a year (2) Atrophic vaginitis: Code(s): N95.2 - Postmenopausal atrophic vaginitis Category: Medical Plan: Discussed with the patient the options of treatment for atrophic vaginitis includingKY jelly versus local vaginal estrogen versus HRT. All pros and cons, risks and benefits of each were discussed with the patient , the patient is interested is vaginal cream. A more detailed discussion about mechanism of action and benefits and this including but not limited to a mild increase in the risk of breast cancer, [place], DVT, PE, strokes were discussed with the patient. Instructions given the patient to use vaginal cream daily at bedtime for 1-2 weeks then 2 to 3 times a week for 3 weeks maintenance therapy. All questions answered, the patient verbalized understanding Medications: New estradiol 0.01%(0.1mg/gram) (Estrace) Intravaginal cream, use half an applicator intravaginally daily for a week followed by 2 to 3 times a week for 3 weeks then as needed afterwards 0.5 appful vaginal 3XW 42.5 grams 1RF 90 days Coding Level of Care Code Est Pt Prev Care 40-64y(53858) Diagnoses Well woman exam Z01.419 Atrophic vaginitis N95.2
[2025-03-25 09:16] VITALS: BP 122/70; BMI 22.7
== END 2025-03-25 10:01 | disposition home or self-care (01) ==
LOC: HO.HWS 09:06
PROVIDERS: PCP Internal Medicine; Visit Provider Obstetrics & Gynecology
DX: Z01.419 Encounter for gynecological examination (general) (routine) without abnormal findings (principal); N95.2 Postmenopausal atrophic vaginitis
CPT/HCPCS: 99396; 99459

== ENCOUNTER → 2025-03-25 09:05 | Outpatient (BNVA) | payer OTHER, SELFPAY | PROVIDERS: PCP Internal Medicine; Visit Provider Obstetrics & Gynecology | DX: Z01.419 Encounter for gynecological examination (general) (routine) without abnormal findings (principal); N95.2 Postmenopausal atrophic vaginitis; Z71.3 Dietary counseling and surveillance; Z68.22 Body mass index [BMI] 22.0-22.9, adult | CPT/HCPCS: 99396 ==